=== PATIENT | male | born 1985 | race Caucasian/White ===

== ENCOUNTER 2020-12-28 06:07 | Inpatient (IN) | payer OTHER, SELFPAY ==
[2020-12-28] VITALS (17 sets, daily range): BP systolic 99–178; BP diastolic 43–91; PULSE 68–137; RESP 15–37; TEMP 36.2–37.2; O2SAT 89–100; BMI 27.6; BMI 27.5
--- NOTE | 2020-12-28 06:37 | ECG_ITS ---
Test Reason : DKA Blood Pressure : / mmHG Vent. Rate : 104 BPM Atrial Rate : 104 BPM P-R Int : 156 ms QRS Dur : 090 ms QT Int : 338 ms P-R-T Axes : 063 073 031 degrees QTc Int : 444 ms Sinus tachycardia Otherwise normal ECG No previous ECGs available Referred By: Deepak Azul Electronically Signed By:MARIA ESTHER VELAZQUEZ
[2020-12-28 06:38] LABS: Glucose, Whole Blood 440 mg/dL (60-115)
[2020-12-28] MEDS: 0.9 % Sodium Chloride 1,000 ML 999 ML IV ×2 (06:47)
[2020-12-28] MEDS: Morphine Sulfate 4 MG/ML CARTRIDGE IVPUSH ×2 (06:47→07:38)
[2020-12-28] MEDS: Insulin Regular, Human 100 UNIT/ML 3 ML VIAL IVPUSH (06:48)
[2020-12-28 07:05] LABS: Mean Corpuscular HGB Conc 32.5 g/dl (31.0-36.0)
[2020-12-28 07:07] LABS: Venous Blood Gas Refer to POC result
[2020-12-28 07:08] LABS: VBG Base Excess -29.5 mmol/L; VBG HCO3 3 mmol/L (22-26); VBG pCO2 16 mmHg; VBG pO2 81 mmHg
[2020-12-28 07:09] LABS: VBG pH 6.85 (7.32-7.43)
[2020-12-28 07:12] LABS: Hematocrit 46.1 % (42-52); Mean Corpuscular Hemoglobin 30.9 pg (27.0-33.0); Mean Corpuscular Volume 94.9 fL (80-98); Mean Platelet Volume 8.9 fL (9.4-12.4); Platelet Count 436 X10*3/uL (160-400); Red Blood Count 4.86 X10*6/uL (4.60-5.80); Red Cell Distribution Width 11.9 % (11.0-16.0)
--- NOTE | 2020-12-28 07:15 | ED_ITS ---
HPI - Abdominal Pain General Chief Complaint: Abdominal Pain Stated Complaint: Abdominal pain, N/V Time Seen by Provider: 12/28/20 06:27 Source: patient Mode of arrival: EMS Limitations: no limitations History of Present Illness HPI narrative: 35-year-old male who presents emergency department for evaluation of abdominal pain nausea and vomiting. Patient states that he got sick yesterday. He states that he has been vomiting and dry heaving. He has not been able to eat or drink. The patient does have type 2 diabetes. He states that since getting ill, he was not able to eat or drink therefore he stopped giv ing himself insulin. States he tried to drink fluids but continued to vomit. He tried to give himself spoons full left sugar but vomited shortly after swallowing the sugar. He states that this morning, developed severe abdominal cramping. The pain was located diffusely throughout his abdomen, was constant and was severe. The patient denied fever, chills, chest pain, shortness of breath, sore throat, changes bowel movements. Related Data Allergies Allergy/AdvReac Type Severity Reaction Status Date / Time Penicillins Allergy Hives Verified 12/28/20 06:23 Review of Systems Review of Systems Yes all other systems are reviewed and are negative Physical Exam Vital Signs: Vital Signs: Last Vital Signs Temp 97.6 F 12/28/20 06:15 Pulse 100 12/28/20 06:15 Resp 30 H 12/28/20 06:15 BP 153/89 H 12/28/20 06:15 Pulse Ox 100 12/28/20 06:15 Oxygen Flow Rate 2 12/28/20 06:15 Body Mass Index 27.6 Const: Other: Strong ketotic odor to his breath General: cooperative and in distress (Moderate to severe, Secondary to abdominal pain) O rientation/consciousness: oriented to person and oriented to place Limita tions: no limitations HENMT: Head: Yes normal to inspection, Yes normocephalic and Yes atraumatic Ears: external ears normal General nose exam: Normal external nose present Face and sinus: Yes normal facial exam Mouth: Normal oral and palatal mucosa present Throat: Yes posterior oropharynx normal Eyes: Periorbital: periorbital findings normal Eyelids: Yes eyelids normal Conjunctivae: conjunctivae normal Sclerae: sclerae normal Corneas: corneas normal Pupils: Equal, round and reactive pupils present Direct Ophthalmoscopy: normal light reflex Neck: Neck: Yes full ROM, Yes no lymphadenopathy, Yes no meningeal signs, Yes trachea midline and Yes supple Chest: Chest palpation & inspection: normal inspection of the chest and normal palpation of entire chest wall Resp: Effort & Inspection: able to speak in complete sentences and tachypneic Auscultation: clear to auscultation bilaterally Cardio: Rate: tachycardic Rhythm: regular rhythm Heart sounds: S1 normal heart sound present, S2 normal heart sound present and no murmurs GI: Inspection: Yes normal to inspection Palpation (GI): Soft to palpation, Tenderness to palpation present (GI) ([id number] diffuse tenderness), no guarding, not rigid and No hepatosplenomegaly present : General: Yes no CVA tenderness Back/Spine/Pelvis: Back: no CVA tenderness Cervical Spine: normal cervical lordosis Thoracic/Lumbar Spine: thoracic and lumbar spine normal to inspection Skin: Lesions: no lesions Rashes: no rashes Wounds: no wounds Neuro: General: oriented to person, oriented to place and no meningeal signs Cranial nerves: Yes CN's II-XII intact bilaterally and Yes Equal, round and reactive pupils present Cognition (Neuro): normal cognition Motor exam (neuro): 5/5 motor strength present throughout Extrem: General: Yes normal to inspection and Yes full ROM Psych: Appearance: well kempt Mental Status: mental status grossly normal Speech and movement: Normal speech and movement present Affect: normal affect Attitude: cooperative Thought process: Normal thought process present Thought content: Normal thought content present Course Course Course Narrative: 35-year-old male with type 1 diabetes mellitus who presents emergency department for evaluation of 2 days of nausea , vomiting and abdominal pain. On presentation the patient was in distress secondary to his abdominal pain. Patient had a very strong ketotic odor to his breath and was tachypneic. Vital signs revealed hypertension with a blood pressure of 153/89, tachycardia with a pulse of 100 and an elevated respiratory rate of 30. O2 saturation and temperature were normal. The patient's abdominal exam revealed diffuse abdominal tenderness. The patient's presentation was consistent with acute diab etic ketoacidosis which explains his tachypnea and his tachycardia. I ordered normal saline IV x2 L. He also received morphine 4 mg IV for his abdominal pain. I also ordered regular insulin 10 units IV. Laboratory evaluation to include CBC, CMP, lipase, acetone, venous blood gas, EKG and chest x-ray. 0736: The patient's venous blood gas revealed a pH of 6.85. Patient's WBC was elevated at 32,600, platelet count was 436,000. Findings, I did order blood cultures x2. The patient will be started on an insulin drip at 0.1 unit/kilogram/hour (7 unit). I also ordered q.1 hour point of care glucose monitoring. The patient did get some improvement of his abdominal pain with the initial dose of morphine required a 2nd dose of morphine 4 mg IV. 0806: Patient's electrolytes were abnormal with a low sodium of 124, elevated potassium 6.0, bicarb below detectable limits. Patient also has not elevated creatinine of 1.6. Lactic acid was elevated at 3.7. Moderate serum acetone. Are all consistent with the patient's diabetic ketoacidosis and severe acidosis given his pH of 6.85. I did discuss the patient's presentation with the covering mold loft worker, Dr. Bang and the patient will be admitted to the intensive care unit. He did recommend that the patient received 1 amp of sodium bicarb IV and this was ordered. MDM - Abdominal Pain Lab Data Result diagrams: 12/28/20 06:54 12/28/20 06:54 Labs: Lab Results 12/28/20 12/28/20 12/28/20 Range/Units 06:34 06:54 06:54 WBC 32.6 H* (4.8-10.8) X10*3/uL RBC 4.86 (4.60-5.80) X10*6/uL Hgb 15.0 (14.0-18.0) g/dl Hct 46.1 (42-52) % MCV 94.9 (80-98) fL MCH 30.9 (27.0-33.0) pg MCHC 32.5 (31.0-36.0) g/dl RDW 11.9 (11.0-16.0) % Plt Count 436 H (160-400) X10*3/uL MPV 8.9 L (9.4-12.4) fL Immature Gran % (Auto) Cancelled Neut % (Auto) Cancelled Lymph % (Auto) Cancelled [place] % (Auto) Cancelled Eos % (Auto) Cancelled Baso % (Auto) Cancelled Lymph # (Auto) Cancelled [place] # (Auto) Cancelled Eos # (Auto) Cancelled Baso # (Auto) Cancelled Abs Immat Gran (auto) Cancelled Absolute Neuts (auto) Cancelled Absolute Nucleated RBC 0.000 (0.0-0.012) X10*3/uL Nucleated RBC % (auto) 0.0 (0.0-0.2) /100WBC Neutrophils % (Manual) 75 H (45-73) % Band Neutrophils % 5 (3-5) % Lymphocytes % (Manual) 9 L (20-40) % Monocytes % (Manual) 8 (2-11) % Basophils % (Manual) 1 (0-1) % Metamyelocytes % 2 % Abs Neuts (Manual) 26.1 H (2.2-7.9) X10*3/uL Lymphocytes # (Manual) 2.9 (0.6-4.8) X10*3/uL Monocytes # (Manual) 2.6 H (0.0-1.2) X10*3/uL Basophils # (Manual) 0.3 (0.0-0.3) X10*3/uL Metamyelocytes # 0.7 X10*3/uL Platelet Estimate SLIGHTLY INCREASED (NORMAL) Large Platelets PRESENT Plt Morphology Comment NORMAL RBC Morphology NOTED Polychromasia 1+ (0-2) /OIF [place] Cells 2+ (3-5) /OIF VBG pH (7.32-7.43) VBG pCO2 mmHg VBG pO2 mmHg VBG HCO3 (22-26) mmol/L VBG O2 Saturation % VBG Base Excess mmol/L Sodium 124 L (135-145) mmol/L Potassium 6.0 H* (3.3-5.1) mmol/L Chloride 96 (96-108) mmol/L Carbon Dioxide < 5 L* (22-29) mmol/L Anion Gap 29 H (12-20) BUN 16 (9-16) mg/dL Creatinine 1.60 H (0.5-1.4) mg/dL Estim Creat Clear Calc 60.5 Estimated GFR 49 POC Glucose 440 H* (60-115) mg/dL Random Glucose 545 H* (60-115) mg/dL Lactic Acid (0.5-2.0) mmol/L Calcium 8.7 (8.4-10.2) mg/dL Total Bilirubin 0.3 (0.0-1.0) mg/dL AST 21 (5-37) U/L ALT 14 (0-40) U/L Alkaline Phosphatase 145 H (39-117) U/L Total Protein 8.1 H (6.5-8.0) g/dL Albumin 4.7 (3.5-5.0) g/dL Lipase 13 (8-78) U/L Beta-Hydroxybutyrate/Acetoacetate Urine Color Urine Appearance Urine pH (5.0-8.0) Ur Specific [place] (1.005-1.025) Urine Protein (NEG-TRACE) MG/DL Urine Glucose (UA) (NEG) MG/DL Urine Ketones (NEG) MG/DL Urine Blood (NEG) Urine Nitrite (NEG) Ur Leukocyte Esterase (NEG) Urine RBC (0) /HPF Urine WBC (0-4) /HPF Ur Squamous Epith Cells /LPF Amorphous Sediment /LPF Urine Bacteria /LPF Granular Casts /LPF Acetone, Qual Moderate H (Negative) 12/28/20 12/28/20 12/28/20 Range/Units 06:54 06:54 06:59 WBC (4.8-10.8) X10*3/uL RBC (4.60-5.80) X10*6/uL Hgb (14.0-18.0) g/dl Hct (42-52) % MCV (80-98) fL MCH (27.0-33.0) pg MCHC (31.0-36.0) g/dl RDW (11.0-16.0) % Plt Count (160-400) X10*3/uL MPV (9.4-12.4) fL Immature Gran % (Auto) Neut % (Auto) Lymph % (Auto) [place] % (Auto) Eos % (Auto) Baso % (Auto) Lymph # (Auto) [place] # (Auto) Eos # (Auto) Baso # (Auto) Abs Immat Gran (auto) Absolute Neuts (auto) Absolute Nucleated RBC (0.0-0.012) X10*3/uL Nucleated RBC % (auto) (0.0-0.2) /100WBC Neutrophils % (Manual) (45-73) % Band Neutrophils % (3-5) % Lymphocytes % (Manual) (20-40) % Monocytes % (Manual) (2-11) % Basophils % (Manual) (0-1) % Metamyelocytes % % Abs Neuts (Manual) (2.2-7.9) X10*3/uL Lymphocytes # (Manual) (0.6-4.8) X10*3/uL Monocytes # (Manual) (0.0-1.2) X10*3/uL Basophils # (Manual) (0.0-0.3) X10*3/uL Metamyelocytes # X10*3/uL Platelet Estimate (NORMAL) Large Platelets Plt Morphology Comment RBC Morphology Polychromasia /OIF [place] Cells /OIF VBG pH 6.85 L* (7.32-7.43) VBG pCO2 16 mmHg VBG pO2 81 mmHg VBG HCO3 3 L (22-26) mmol/L VBG O2 Saturation 91.0 % VBG Base Excess -29.5 mmol/L Sodium (135-145) mmol/L Potassium (3.3-5.1) mmol/L Chloride (96-108) mmol/L Carbon Dioxide (22-29) mmol/L Anion Gap (12-20) BUN (9-16) mg/dL Creatinine (0.5-1.4) mg/dL Estim Creat Clear Calc Estimated GFR POC Glucose (60-115) mg/dL Random Glucose (60-115) mg/dL Lactic Acid 3.7 H* (0.5-2.0) mmol/L Calcium (8.4-10.2) mg/dL Total Bilirubin (0.0-1.0) mg/dL AST (5-37) U/L ALT (0-40) U/L Alkaline Phosphatase (39-117) U/L Total Protein (6.5-8.0) g/dL Albumin (3.5-5.0) g/dL Lipase (8-78) U/L Beta-Hydroxybutyrate/Acetoacetate Cancelled Urine Color Urine Appearance Urine pH (5.0-8.0) Ur Specific [place] (1.005-1.025) Urine Protein (NEG-TRACE) MG/DL Urine Glucose (UA) (NEG) MG/DL Urine Ketones (NEG) MG/DL Urine Blood (NEG) Urine Nitrite (NEG) Ur Leukocyte Esterase (NEG) Urine RBC (0) /HPF Urine WBC (0-4) /HPF Ur Squamous Epith Cells /LPF Amorphous Sediment /LPF Urine Bacteria /LPF Granular Casts /LPF Acetone, Qual (Negative) 12/28/20 Range/Units 07:43 WBC (4.8-10.8) X10*3/uL RBC (4.60-5.80) X10*6/uL Hgb (14.0-18.0) g/dl Hct (42-52) % MCV (80-98) fL MCH (27.0-33.0) pg MCHC (31.0-36.0) g/dl RDW (11.0-16.0) % Plt Count (160-400) X10*3/uL MPV (9.4-12.4) fL Immature Gran % (Auto) Neut % (Auto) Lymph % (Auto) [place] % (Auto) Eos % (Auto) Baso % (Auto) Lymph # (Auto) [place] # (Auto) Eos # (Auto) Baso # (Auto) Abs Immat Gran (auto) Absolute Neuts (auto) Absolute Nucleated RBC (0.0-0.012) X10*3/uL Nucleated RBC % (auto) (0.0-0.2) /100WBC Neutrophils % (Manual) (45-73) % Band Neutrophils % (3-5) % Lymphocytes % (Manual) (20-40) % Monocytes % (Manual) (2-11) % Basophils % (Manual) (0-1) % Metamyelocytes % % Abs Neuts (Manual) (2.2-7.9) X10*3/uL Lymphocytes # (Manual) (0.6-4.8) X10*3/uL Monocytes # (Manual) (0.0-1.2) X10*3/uL Basophils # (Manual) (0.0-0.3) X10*3/uL Metamyelocytes # X10*3/uL Platelet Estimate (NORMAL) Large Platelets Plt Morphology Comment RBC Morphology Polychromasia /OIF [place] Cells /OIF VBG pH (7.32-7.43) VBG pCO2 mmHg VBG pO2 mmHg VBG HCO3 (22-26) mmol/L VBG O2 Saturation % VBG Base Excess mmol/L Sodium (135-145) mmol/L Potassium (3.3-5.1) mmol/L Chloride (96-108) mmol/L Carbon Dioxide (22-29) mmol/L Anion Gap (12-20) BUN (9-16) mg/dL Creatinine (0.5-1.4) mg/dL Estim Creat Clear Calc Estimated GFR POC Glucose (60-115) mg/dL Random Glucose (60-115) mg/dL Lactic Acid (0.5-2.0) mmol/L Calcium (8.4-10.2) mg/dL Total Bilirubin (0.0-1.0) mg/dL AST (5-37) U/L ALT (0-40) U/L Alkaline Phosphatase (39-117) U/L Total Protein (6.5-8.0) g/dL Albumin (3.5-5.0) g/dL Lipase (8-78) U/L Beta-Hydroxybutyrate/Acetoacetate Urine Color STRAW Urine Appearance CLEAR Urine pH 5.5 (5.0-8.0) Ur Specific [place] >= 1.030 H (1.005-1.025) Urine Protein 2+ H (NEG-TRACE) MG/DL Urine Glucose (UA) 500 H (NEG) MG/DL Urine Ketones >=80 (NEG) MG/DL Urine Blood 2+ H (NEG) Urine Nitrite NEG (NEG) Ur Leukocyte Esterase NEG (NEG) Urine RBC 5-9 H (0) /HPF Urine WBC 0 (0-4) /HPF Ur Squamous Epith Cells NONE /LPF Amorphous Sediment 1+ /LPF Urine Bacteria NONE /LPF Granular Casts 0-2 /LPF Acetone, Qual (Negative) ECG Data Attestation: I personally reviewed and interpreted this ECG as follows: Interpretation: 0643: Sinus tachycardia with a rate of 104, normal [place], QRS and QTC intervals, no ST segment elevation, no ST segment depression, no T- wave abnormalities. Except for the sinus tachycardia, this is a normal EKG. Critical Care Time Critical Care Time Critical Care Time: Yes Total Critical Care Time: 120 Attestation: Critical Care: The patient was critically ill with a high probab ility of imminent or life threatening deterioration. I spent greater than 30 minutes of discontinuous time evaluating the patient,delivering critical care at the bedside, discussing and evaluating pertinent data with consultants. Critical care time does not include time spent performing separately billable procedures or teaching. Total time spent performing critical care was 120 minutes. Discharge Plan Discharge Clinical Impression: Diabetic keto-acidosis Qualifiers: Diabetes mellitus type: type 1 Diabetes mellitus complication detail: without coma Qualified Code(s): E10.10 - Type 1 diabetes mellitus with ketoacidosis without coma Abdominal pain Qualifiers: Abdominal location: generalized Qualified Code(s): R10.84 - Generalized abdominal pain Patient Disposition: Admitted As Inpatient [facility] Past Medical History [facility] Narrative: Social history: The patient denies tobacco use, he occasionally drinks alcohol and he states they did drink alcohol 2 days prior. He occasionally smokes marijuana. Medical History Depression Diabetes type I Social History Social History Advance Directives: No Advance Directives Information Provided: No
[2020-12-28 07:16] LABS: White Blood Count 32.6 X10*3/uL (4.8-10.8)
[2020-12-28 07:30] LABS: Acetone, serum QL Moderate (Negative)
[2020-12-28 07:35] LABS: Band Neutrophils Percent 5 % (3-5); Basophils Abs Manual 0.3 X10*3/uL (0.0-0.3); Basophils Percent Manual 1 % (0-1); Burr Cells 2+ (3-5) /OIF; Large Platelet PRESENT; Lymphocytes Absolute Manual 2.9 X10*3/uL (0.6-4.8); Lymphocytes Percent Manual 9 % (20-40); Metamyelocytes Absolute 0.7 X10*3/uL; Metamyelocytes Percent 2 %; Monocytes Absolute Manual 2.6 X10*3/uL (0.0-1.2); Monocytes Percent Manual 8 % (2-11); Neutrophils Absolute Manual 26.1 X10*3/uL (2.2-7.9); Neutrophils Percent Manual 75 % (45-73); Platelet Estimate SLIGHTLY INCREASED (NORMAL); Platelet Morphology Comment NORMAL; RBC Morphology NOTED
[2020-12-28 07:36] LABS: Polychromasia 1+ (0-2) /OIF
[2020-12-28 07:42] LABS: Alanine Aminotransferase 14 U/L (0-40); Albumin Level 4.7 g/dL (3.5-5.0); Alkaline Phosphatase 145 U/L (39-117); Anion Gap 29 (12-20); Aspartate Amino Transferase 21 U/L (5-37); Bilirubin Total 0.3 mg/dL (0.0-1.0); Blood Urea Nitrogen 16 mg/dL (9-16); Calcium 8.7 mg/dL (8.4-10.2); Carbon Dioxide < 5 mmol/L (22-29); Chloride 96 mmol/L (96-108); Creatinine Clr Calc Pharmacy 60.5; Estimated Glomerular Filt Rate 49; Glucose Random 545 mg/dL (60-115); Lipase 13 U/L (8-78); Sodium 124 mmol/L (135-145); Total Protein 8.1 g/dL (6.5-8.0)
[2020-12-28 07:43] LABS: Lactic Acid 3.7 mmol/L (0.5-2.0)
[2020-12-28] MEDS: Insulin Regular/NS 100 UNIT/100 ML PLAST..BAG 7 UNIT IVCONT ×2 (07:55→09:18)
[2020-12-28 07:56] LABS: Appearance Urine CLEAR; Color Urine STRAW; Glucose Urine UA 500 MG/DL (NEG); Leukocyte Esterase Urine NEG (NEG); Nitrite Urine NEG (NEG); PH 5.5 (5.0-8.0); Specific Gravity - Urine >= 1.030 (1.005-1.025); Urine Blood 2+ (NEG); Urine Ketones >=80 MG/DL (NEG); Urine Protein 2+ MG/DL (NEG-TRACE)
[2020-12-28 08:05] LABS: Amorphous Sediment Urine 1+ /LPF; Granular Casts Urine 0-2 /LPF; WBC Urine 0 /HPF (0-4)
[2020-12-28] MEDS: Sodium Bicarbonate 8.4% 50 MEQ/50 ML VIAL IVPUSH (08:09)
[2020-12-28] MEDS: Heparin Sodium,Porcine 5,000 UNIT/ML VIAL 5000 UNIT SUBCUT ×2 (08:10→18:44)
[2020-12-28] MEDS: Lactated Ringers 1,000 ML 200 ML IVCONT (08:27)
[2020-12-28 08:41] LABS: COVID-19 Test Negative (Negative); IDNOW Serial# 9DD0AD1C
[2020-12-28 09:00] LABS: Glucose, Whole Blood 288 mg/dL (60-115)
[2020-12-28 09:00] LABS: Reflex Lactate? Lactic Acid Added
[2020-12-28 09:37] LABS: ~Lactic Acid-LAB USE ONLY 1.7 mmol/L (0.5-2.0)
[2020-12-28 09:53] LABS: Glucose, Whole Blood 284 mg/dL (60-115)
--- NOTE | 2020-12-28 10:50 | P.HPCC_ITS ---
History of Present Illness Date of Service: 12/28/20 Chief Complaint: Abdominal pain 35-year-old gentleman with underlying history of diabetes mellitus admitted on 12/28/2020 with 3 day history of slowly worsening abdominal pain associated with nausea, vomiting, and polyuria. On ER evaluation patient was noted to be in diabetic ketoacidosis, he has been started on IV fluid resuscitation and insulin drip and admitted to intensive care unit. He denies any recent infections or physiologic stressors. Review of Systems Constitutional: Constitutional: Denies daytime sleepiness, Denies excessive sweating, Denies fatigue, Denies fever(s), Denies lethargy, Reports malaise, Denies night sweats, Denies snoring and Denies weight loss Eyes: Eyes: Denies blurry vision and Denies itchy eyes ENT: Denies nasal congestion, Denies post nasal drip, Denies sinus pain, Denies sinus pressure and Denies other ( Thrush) Cardiovascular: Cardiovascular: Denies chest pain, Denies pedal edema, Denies dyspnea, Denies orthopnea and Denies paroxysmal nocturnal dyspnea Respiratory: Respiratory: Denies cough, Denies hemoptysis, Denies excessive phlegm production, Denies dyspnea, Denies snoring and Denies wheezing Gastrointestinal: Gastrointestinal: Reports abdominal pain, Denies heartburn, Reports nausea and Reports vomiting Musculoskeletal: Musculoskeletal: Denies myalgias, Denies arthralgias and Denies joint swelling Integumentary/Breasts: Skin/Breast: Denies rash Neurologic: Denies memory loss and Denies seizure-like activity Psychiatric: Psychiatric: Denies abnormal sleep pattern, Denies anxiety and Denies memory loss Endocrine: Endocrine: Denies excessive sweating, Denies fatigue, Denies heat intolerance and Reports polyuria Hematologic/Lymphatic: Hematologic/Lymphatic: Denies easy bruising Allergic/Immunologic: Allergic/Immunologic: Denies itchy eyes, Denies seasonal rhinorrhea and Denies wheezing PMFSH Past Medical History Medical History Depression Diabetes type I Social History Social History Household Members: Spouse Housing: House Do you presently have visiting nurse or other home services: No Patient Tobacco Use Status: Former Tobacco user Tobacco use type: Cigarette Years Smoked: 2 Smoked in Last 30 Days: No Second Hand Smoke Exposure: Yes (MINIMAL) Use of substances other than those prescribed or required for medical reasons: Yes Substance Use Type: Marijuana Substance Use Type Other:: VAPING MARIJUANA Substance Use Frequency: Daily Last Used Substance: Days (ago) Have you been hit, kicked, punched, or otherwise hurt by someone within the past year? If so, by whom?: No Do you feel safe in your current relationship?: No Is there a partner from a previous relationship who is making you feel unsafe now?: No Are you made to feel afraid or neglected: No Spiritual Healthcare Practices: NO Sabianist Healthcare Practices: CULTURALLY AMISH Cultural Healthcare Practices: NO Advance Directives: No Advance Directives Information Provided: No (PLAN TO GET HCP FORM) Advance Directives on File: No Do you have thoughts of harming others: None Do you have a plan to hurt others: No Plan Recently lost weight without trying: Yes How much weight loss: 14-23 pounds Eating poorly because of decreased appetite: No Nutrition screen score: 4 Nutrition Risks: Diabetes new onset/Uncontrolled Poor oral hygiene: No Meds Allergies Allergy/AdvReac Type Severity Reaction Status Date / Time Penicillins Allergy Hives Verified 12/28/20 06:23 Active Medications: Current Medications Generic Name Dose Route Start Last Admin Trade Name Freq PRN Reason Stop Dose Admin Heparin Sodium (Porcine) 5,000 unit 12/28/20 08:00 12/28/20 08:10 Heparin Sodium,Porcine 5,000 Unit/Ml Vial SUBCUT 5,000 unit Q8H CHERYL Administration Lactated Ringer's 1,000 mls @ 200 mls/hr 12/28/20 08:00 12/28/20 08:27 Lr IVCONT 200 mls/hr .Q5H CHERYL Administration Insulin Human Regular 100 unit in 100 mls @ 0 mls/hr 12/28/20 08:00 12/28/20 09:59 Myxredlin IVCONT 10 unit/hr .Q0M CHERYL 10 mls/hr Titration Protocol Per Protocol Ondansetron HCl 4 mg 12/28/20 07:54 Ondansetron Hcl 4 Mg/2 Ml Vial IVPUSH Q8H PRN Nausea Home Medications Medication Instructions Recorded Confirmed Last Taken Type insulin glargine [Lantus Solostar 40 unit SUBCUT DAILY 12/28/20 12/28/20 Unknown History U-100 Insulin] insulin lispro [Humalog KwikPen See Protocol SUBCUT TIDWMEAL 12/28/20 12/28/20 Unknown History Insulin] sertraline 1.5 tab PO DAILY 12/28/20 12/28/20 Unknown History sertraline 2 tab PO DAILY 12/28/20 12/28/20 Unknown History Physical Exam Vital Signs: Vital Signs: Last Vital Signs Temp 98.2 F 12/28/20 10:00 Pulse 126 H 12/28/20 10:00 Resp 25 H 12/28/20 10:00 BP 156/88 H 12/28/20 10:00 Pulse Ox 100 12/28/20 10:00 Oxygen Flow Rate 2 12/28/20 06:15 Body Mass Index 27.5 Const: General: no acute distress, alert and awake Eyes: Sclerae: sclerae normal EOM: EOMs intact bilaterally Neck: Neck: Yes no lymphadenopathy, Yes trachea midline and Yes supple Resp: Effort & Inspection: normal respiratory effort and no respiratory distress Auscultation: clear to auscultation bilaterally Cardio: Rate: regular rate Rhythm: regular rhythm Heart sounds: no gallops, no murmurs and no rubs GI: Palpation (GI): Soft to palpation and Other GI palpation findings present ( Nontender) Auscultation: normal bowel sounds Extrem: General: Yes no pedal edema, No clubbing and No cyanosis Results Labs CBC and Chem 7: 12/28/20 06:54 12/28/20 06:54 Labs: Laboratory Results - last 24 hr 12/28/20 12/28/20 12/28/20 06:34 06:54 06:54 MCV 94.9 MCH 30.9 MCHC 32.5 RDW 11.9 Plt Count 436 H MPV 8.9 L Immature Gran % (Auto) Cancelled Neut % (Auto) Cancelled Lymph % (Auto) Cancelled Lincoln % (Auto) Cancelled Eos % (Auto) Cancelled Baso % (Auto) Cancelled Lymph # (Auto) Cancelled Lincoln # (Auto) Cancelled Eos # (Auto) Cancelled Baso # (Auto) Cancelled Abs Immat Gran (auto) Cancelled Absolute Neuts (auto) Cancelled Absolute Nucleated RBC 0.000 Nucleated RBC % (auto) 0.0 Neutrophils % (Manual) 75 H Band Neutrophils % 5 Lymphocytes % (Manual) 9 L Monocytes % (Manual) 8 Basophils % (Manual) 1 Metamyelocytes % 2 Abs Neuts (Manual) 26.1 H Lymphocytes # (Manual) 2.9 Monocytes # (Manual) 2.6 H Basophils # (Manual) 0.3 Metamyelocytes # 0.7 Platelet Estimate SLIGHTLY INCREASED Large Platelets PRESENT Plt Morphology Comment NORMAL RBC Morphology NOTED Polychromasia 1+ (0-2) Abraham Cells 2+ (3-5) VBG pH VBG pCO2 VBG pO2 VBG HCO3 VBG O2 Saturation VBG Base Excess Anion Gap 29 H Estim Creat Clear Calc 60.5 Estimated GFR 49 POC Glucose 440 H* Random Glucose 545 H* Lactic Acid Lactic Acid Fup @ 2Hr Calcium 8.7 Total Bilirubin 0.3 AST 21 ALT 14 Alkaline Phosphatase 145 H Total Protein 8.1 H Albumin 4.7 Lipase 13 Beta-Hydroxybutyrate/Acetoacetate Urine Color Urine Appearance Urine pH Ur Specific [place] Urine Protein Urine Glucose (UA) Urine Ketones Urine Blood Urine Nitrite Ur Leukocyte Esterase Urine RBC Urine WBC Ur Squamous Epith Cells Amorphous Sediment Urine Bacteria Granular Casts Acetone, Qual Moderate H COVID-19 ([facility]) COVID-19 Clin Com 12/28/20 12/28/20 12/28/20 06:54 06:54 06:59 MCV MCH MCHC RDW Plt Count MPV Immature Gran % (Auto) Neut % (Auto) Lymph % (Auto) Lincoln % (Auto) Eos % (Auto) Baso % (Auto) Lymph # (Auto) Lincoln # (Auto) Eos # (Auto) Baso # (Auto) Abs Immat Gran (auto) Absolute Neuts (auto) Absolute Nucleated RBC Nucleated RBC % (auto) Neutrophils % (Manual) Band Neutrophils % Lymphocytes % (Manual) Monocytes % (Manual) Basophils % (Manual) Metamyelocytes % Abs Neuts (Manual) Lymphocytes # (Manual) Monocytes # (Manual) Basophils # (Manual) Metamyelocytes # Platelet Estimate Large Platelets Plt Morphology Comment RBC Morphology Polychromasia Abraham Cells VBG pH 6.85 L* VBG pCO2 16 VBG pO2 81 VBG HCO3 3 L VBG O2 Saturation 91.0 VBG Base Excess -29.5 Anion Gap Estim Creat Clear Calc Estimated GFR POC Glucose Random Glucose Lactic Acid 3.7 H* Lactic Acid Fup @ 2Hr Calcium Total Bilirubin AST ALT Alkaline Phosphatase Total Protein Albumin Lipase Beta-Hydroxybutyrate/Acetoacetate Cancelled Urine Color Urine Appearance Urine pH Ur Specific [place] Urine Protein Urine Glucose (UA) Urine Ketones Urine Blood Urine Nitrite Ur Leukocyte Esterase Urine RBC Urine WBC Ur Squamous Epith Cells Amorphous Sediment Urine Bacteria Granular Casts Acetone, Qual COVID-19 ([facility]) COVID-19 [employer] 12/28/20 12/28/20 12/28/20 07:43 08:21 08:57 MCV MCH MCHC RDW Plt Count MPV Immature Gran % (Auto) Neut % (Auto) Lymph % (Auto) Lincoln % (Auto) Eos % (Auto) Baso % (Auto) Lymph # (Auto) Lincoln # (Auto) Eos # (Auto) Baso # (Auto) Abs Immat Gran (auto) Absolute Neuts (auto) Absolute Nucleated RBC Nucleated RBC % (auto) Neutrophils % (Manual) Band Neutrophils % Lymphocytes % (Manual) Monocytes % (Manual) Basophils % (Manual) Metamyelocytes % Abs Neuts (Manual) Lymphocytes # (Manual) Monocytes # (Manual) Basophils # (Manual) Metamyelocytes # Platelet Estimate Large Platelets Plt Morphology Comment RBC Morphology Polychromasia Abraham Cells VBG pH VBG pCO2 VBG pO2 VBG HCO3 VBG O2 Saturation VBG Base Excess Anion Gap Estim Creat Clear Calc Estimated GFR POC Glucose 288 H Random Glucose Lactic Acid Lactic Acid Fup @ 2Hr Calcium Total Bilirubin AST ALT Alkaline Phosphatase Total Protein Albumin Lipase Beta-Hydroxybutyrate/Acetoacetate Urine Color STRAW Urine Appearance CLEAR Urine pH 5.5 Ur Specific [place] >= 1.030 H Urine Protein 2+ H Urine Glucose (UA) 500 H Urine Ketones >=80 Urine Blood 2+ H Urine Nitrite NEG Ur Leukocyte Esterase NEG Urine RBC 5-9 H Urine WBC 0 Ur Squamous Epith Cells NONE Amorphous Sediment 1+ Urine Bacteria NONE Granular Casts 0-2 Acetone, Qual COVID-19 ([facility]) Negative COVID-19 [employer] Com See Note 12/28/20 12/28/20 09:11 09:46 MCV MCH MCHC RDW Plt Count MPV Immature Gran % (Auto) Neut % (Auto) Lymph % (Auto) Lincoln % (Auto) Eos % (Auto) Baso % (Auto) Lymph # (Auto) [place] # (Auto) Eos # (Auto) Baso # (Auto) Abs Immat Gran (auto) Absolute Neuts (auto) Absolute Nucleated RBC Nucleated RBC % (auto) Neutrophils % (Manual) Band Neutrophils % Lymphocytes % (Manual) Monocytes % (Manual) Basophils % (Manual) Metamyelocytes % Abs Neuts (Manual) Lymphocytes # (Manual) Monocytes # (Manual) Basophils # (Manual) Metamyelocytes # Platelet Estimate Large Platelets Plt Morphology Comment RBC Morphology Polychromasia Abraham Cells VBG pH VBG pCO2 VBG pO2 VBG HCO3 VBG O2 Saturation VBG Base Excess Anion Gap Estim Creat Clear Calc Estimated GFR POC Glucose 284 H Random Glucose Lactic Acid Lactic Acid Fup @ 2Hr 1.7 Calcium Total Bilirubin AST ALT Alkaline Phosphatase Total Protein Albumin Lipase Beta-Hydroxybutyrate/Acetoacetate Urine Color Urine Appearance Urine pH Ur Specific [place] Urine Protein Urine Glucose (UA) Urine Ketones Urine Blood Urine Nitrite Ur Leukocyte Esterase Urine RBC Urine WBC Ur Squamous Epith Cells Amorphous Sediment Urine Bacteria Granular Casts Acetone, Qual COVID-19 ([facility]) COVID-19 Clin Com Assessment and Plan (1) Diabetic keto-acidosis: Qualifiers: Diabetes mellitus complication detail: without coma Diabetes mellitus type: type 1 Qualified Code(s): E10.10 - Type 1 diabetes mellitus with ketoacidosis without coma Status: Acute Assessment: 35-year-old gentleman with underlying diabetes mellitus admitted with diabetic ketoacidosis requiring insulin drip, further complicated by acute renal failure and acute hyperkalemia. Plan: Neuro: No acute issues. Cardiac: No acute issues. Pulmonary: No acute issues. Renal: Acute renal failure, likely secondary to underlying diabetic ketoacidosis, non oliguric. Continue with IV fluid resuscitation. Continue to monitor renal indices and urine output. Hypernatremia, likely secondary to acute renal failure and diabetes ketoacidosis, no peaked T-waves. Continue to monitor electrolytes. Endo: Diabetic ketoacidosis, continue with insulin drip protocol. GI: No acute issues. ID: No acute issues Heme/Onc: No acute issues. Psych: No acute issues. Miscellaneous: No acute issues. Prophylaxis: Heparin Diet: Nothing by mouth Critical care time spent: 45 minutes (2) Abdominal pain: Qualifiers: Abdominal location: generalized Qualified Code(s): R10.84 - Generalized abdominal pain Status: Acute (3) Acute renal failure: Status: Acute (4) Acute hyperkalemia: Status: Acute Critical Care Time 45 minutes
[2020-12-28] MEDS: Metoprolol Tartrate 5 MG/5 ML VIAL IVPUSH (11:47)
[2020-12-28 11:57] LABS: VBG HCO3 3 mmol/L (22-26); VBG pCO2 10 mmHg; VBG pH 7.01 (7.32-7.43); VBG pO2 60 mmHg
[2020-12-28 12:06] LABS: Glucose, Whole Blood 168 mg/dL (60-115)
[2020-12-28 12:06] LABS: Glucose, Whole Blood 94 mg/dL (60-115)
[2020-12-28 12:18] LABS: Venous Blood Gas Refer to POC result
[2020-12-28] MEDS: Dextrose 5 % and Lactated Ring 1,000 ML 200 ML IVCONT ×3 (12:18→23:43)
[2020-12-28 12:32] LABS: Phosphorus 2.6 mg/dL (2.7-4.5)
[2020-12-28 12:38] LABS: Anion Gap 25 (12-20); Blood Urea Nitrogen 14 mg/dL (9-16); Calcium 8.8 mg/dL (8.4-10.2); Carbon Dioxide < 5 mmol/L (22-29); Chloride 109 mmol/L (96-108); Creatinine Clr Calc Pharmacy 72.6; Estimated Glomerular Filt Rate > 60; Glucose Random 112 mg/dL (60-115); Potassium 4.9 mmol/L (3.3-5.1); Sodium 134 mmol/L (135-145)
[2020-12-28 12:51] LABS: Glucose, Whole Blood 89 mg/dL (60-115)
[2020-12-28 13:56] LABS: Glucose, Whole Blood 92 mg/dL (60-115)
[2020-12-28 14:11] LABS: Amphetamine Screen Urine Not Detected (Not Detect); Barbiturates, Urine Not Detected (Not Detect); Benzodiazepines Screen Urine Not Detected (Not Detect); Cocaine Screen Urine Not Detected (Not Detect); Opiate Screen Urine POSITIVE (Not Detect); Phencyclidine Screen Urine Not Detected (Not Detect)
[2020-12-28 14:20] LABS: Cannabinoid Screen Urine POSITIVE (Not Detect)
[2020-12-28 14:27] LABS: Glucose, Whole Blood 122 mg/dL (60-115)
[2020-12-28 15:39] LABS: Glucose, Whole Blood 184 mg/dL (60-115)
[2020-12-28 17:15] LABS: Glucose, Whole Blood 200 mg/dL (60-115)
[2020-12-28 18:06] LABS: Glucose, Whole Blood 218 mg/dL (60-115)
[2020-12-28 18:40] LABS: VBG Base Excess -22.5 mmol/L; VBG HCO3 5 mmol/L (22-26); VBG pCO2 16 mmHg; VBG pH 7.08 (7.32-7.43); VBG pO2 53 mmHg
[2020-12-28 19:04] LABS: Blood Urea Nitrogen 11 mg/dL (9-16); Calcium 8.4 mg/dL (8.4-10.2); Creatinine Clr Calc Pharmacy 65.2; Estimated Glomerular Filt Rate 54
[2020-12-28 19:14] LABS: Glucose, Whole Blood 258 mg/dL (60-115)
[2020-12-28 19:16] LABS: Anion Gap 22 (12-20); Carbon Dioxide 6 mmol/L (22-29); Chloride 108 mmol/L (96-108); Glucose Random 246 mg/dL (60-115); Potassium 5.2 mmol/L (3.3-5.1); Sodium 131 mmol/L (135-145)
--- NOTE | 2020-12-28 19:48 | PC.NURSE ---
ASSUMED CARE AT 0900; PATIENT IS ALERT TO DROWSY AND ORIENTED; ON INSULIN GTT, TITRATED PER DKA PROTOCOL WITH SOME ADJUSTMENTS PER MD. PATIENT IS AFEBRILE DESPITE LEUKOCYTOSIS. PATIENT WAS INITIALLY TACHYCARDIC AND TACHYPNEIC AND ALSO SHORT OF BREATH, WAS LEFT ON 2 LPM FOR COMFORT, SPO2 98-100%, NO COUGHING, NO DYSPNEA, CLEAR LUNG SOUNDS. PATIENT REPORTED LIGHTHEADEDNESS AND BECAME MORE TACHYCARDIC: SINUS TACHYCARDIA IN 140'S-150'S WITH STANDING TO URINATE; 100-120 AT REST. PATIENT RECEIVED 5 MG IV LOPRESSOR FOR TACHYCARDIA IN 150'S X1 THIS MORNING WITH GOOD EFFECT. PATIENT DENIES CHEST DISCOMFORT. TACHYCARDIA IMPROVED OVER DAY, TACHYPNEA IMPROVED WHILE AT REST OVER COURSE OF DAY. PATIENT NOW DENIES NAUSEA, ABDOMINAL PAIN WAS REPORTED TO BE 1/10 AND DECLINED PAIN MEDICATION. PATIENT DOES ENDORSE OCCASIONAL DRINKING (4 TIMES A MONTH, ONE TO TWO DRINKS), BUT WAS TREMULOUS THIS AFTERNOON, APPEARED TO BE SHIVERING, DENIED BEING COLD. PATIENT DOES ENDORSE VAPING MARIJUANA WITH REGULARITY, LAST TIME WAS TWO DAYS AGO. NO MORE STOOLS OR DIARRHEA THIS SHIFT. PATIENT BLOOD GASSES CHECKED AT 12:00 AND 17:00 AND WERE STILL ACIDOTIC WITH LESSENING SEVERITY, AND THESE WERE REPORTED TO MD. PATIENT IVF WAS CHANGED TO D5LR ABOUT 12:00. CRITICAL BICARB OF <5 WAS REPORTED TO MD.
[2020-12-28 20:29] LABS: Glucose, Whole Blood 261 mg/dL (60-115)
[2020-12-28 21:01] LABS: Glucose, Whole Blood 234 mg/dL (60-115)
[2020-12-28 22:00] LABS: Glucose, Whole Blood 210 mg/dL (60-115)
[2020-12-28 22:51] LABS: Venous Blood Gas Refer to POC result
[2020-12-28 23:16] LABS: Glucose, Whole Blood 189 mg/dL (60-115)
[2020-12-28] MEDS: Insulin Regular/NS 100 UNIT/100 ML PLAST..BAG 12 UNIT IVCONT (23:45)
[2020-12-29] VITALS (19 sets, daily range): BP systolic 106–147; BP diastolic 52–89; PULSE 74–100; RESP 14–25; TEMP 36.6–37.2; O2SAT 97–100; BMI 26.6
[2020-12-29 00:06] LABS: Glucose, Whole Blood 161 mg/dL (60-115)
[2020-12-29] MEDS: ondansetron HCL 4 MG/2 ML VIAL IVPUSH ×2 (00:50→09:48)
[2020-12-29] MEDS: Heparin Sodium,Porcine 5,000 UNIT/ML VIAL 5000 UNIT SUBCUT ×3 (00:51→17:33)
[2020-12-29 01:06] LABS: Anion Gap 19 (12-20); Blood Urea Nitrogen 9 mg/dL (9-16); Calcium 8.8 mg/dL (8.4-10.2); Carbon Dioxide 7 mmol/L (22-29); Chloride 111 mmol/L (96-108); Creatinine Clr Calc Pharmacy 74.3; Estimated Glomerular Filt Rate > 60; Glucose Random 172 mg/dL (60-115); Potassium 4.2 mmol/L (3.3-5.1); Sodium 133 mmol/L (135-145)
[2020-12-29 01:59] LABS: Glucose, Whole Blood 149 mg/dL (60-115)
[2020-12-29 02:09] LABS: Glucose, Whole Blood 164 mg/dL (60-115)
[2020-12-29 02:54] LABS: Glucose, Whole Blood 128 mg/dL (60-115)
[2020-12-29 04:13] LABS: Glucose, Whole Blood 127 mg/dL (60-115)
[2020-12-29 05:22] LABS: VBG Base Excess -11.9 mmol/L; VBG HCO3 12 mmol/L (22-26); VBG pCO2 25 mmHg; VBG pH 7.29 (7.32-7.43); VBG pO2 59 mmHg
[2020-12-29 05:25] LABS: Venous Blood Gas Refer to POC result
[2020-12-29 05:34] LABS: MANUAL DIFF FLAG NO
[2020-12-29 05:38] LABS: Basophils Percent Auto 0.1 % (0-2); Hematocrit 40.2 % (42-52); Hemoglobin 13.8 g/dl (14.0-18.0); Imm Gran Abs Auto 0.08 X10*3/uL (0.00-0.03); Imm Gran Pct Auto 0.6 % (0.0-0.4); Lymphocytes Absolute Auto 0.8 X10*3/uL (1.2-4.9); Lymphocytes Percent Auto 6.3 % (20-40); Mean Corpuscular HGB Conc 34.3 g/dl (31.0-36.0); Mean Corpuscular Hemoglobin 30.5 pg (27.0-33.0); Mean Corpuscular Volume 88.9 fL (80-98); Mean Platelet Volume 8.4 fL (9.4-12.4); Monocytes Absolute Auto 0.9 X10*3/uL (0.1-1.2); Monocytes Percent Auto 7.1 % (2-11); Neutrophils Absolute Auto 11.1 X10*3/uL (2.0-8.3); Neutrophils Percent Auto 85.9 % (45-73); Red Blood Count 4.52 X10*6/uL (4.60-5.80); Red Cell Distribution Width 11.9 % (11.0-16.0)
--- NOTE | 2020-12-29 05:55 | PC.NURSE ---
Patient oriented, lethargic, easily arousable. ST up to 140's with minimal exertion. Insulin gtt titrated per protocol. Nausea with emesis x3. PRN zofran with some effect. Making adequate urine.
[2020-12-29 06:00] LABS: Glucose, Whole Blood 144 mg/dL (60-115)
[2020-12-29] MEDS: Dextrose 5 % and Lactated Ring 1,000 ML 200 ML IVCONT ×2 (06:02→10:02)
[2020-12-29 06:05] LABS: Alanine Aminotransferase 11 U/L (0-40); Albumin Level 4.1 g/dL (3.5-5.0); Alkaline Phosphatase 107 U/L (39-117); Anion Gap 16 (12-20); Aspartate Amino Transferase 16 U/L (5-37); Bilirubin Total 0.3 mg/dL (0.0-1.0); Blood Urea Nitrogen 8 mg/dL (9-16); Carbon Dioxide 13 mmol/L (22-29); Chloride 110 mmol/L (96-108); Creatinine Clr Calc Pharmacy 81.8; Estimated Glomerular Filt Rate > 60; Glucose Random 152 mg/dL (60-115); Magnesium 1.9 mg/dL (1.6-2.6); Phosphorus 1.4 mg/dL (2.7-4.5); Potassium 3.7 mmol/L (3.3-5.1); Sodium 135 mmol/L (135-145); Total Protein 6.6 g/dL (6.5-8.0)
[2020-12-29 06:50] LABS: Platelet Count 260 X10*3/uL (160-400)
[2020-12-29 07:02] LABS: Glucose, Whole Blood 144 mg/dL (60-115)
[2020-12-29 08:02] LABS: Glucose, Whole Blood 137 mg/dL (60-115)
[2020-12-29] MEDS: Potassium Phosphate 30 MMOL in 0.9 % Sodium Chloride 500 ML 85 MMOL IV (08:20)
[2020-12-29 08:58] LABS: Glucose, Whole Blood 129 mg/dL (60-115)
[2020-12-29 10:16] LABS: Glucose, Whole Blood 117 mg/dL (60-115)
--- NOTE | 2020-12-29 10:25 | MHC.CM.PN ---
Met with pt and spouse to discuss d/c planning: Pt states he is independent with all care needs: drives, works and has no services or barriers to care. He follows with endocrinology for DM management and is up to date with all PCP visits. Spouse in room: states she will transport pt home. No additional services are anticipated.
[2020-12-29 11:03] LABS: Glucose, Whole Blood 138 mg/dL (60-115)
[2020-12-29 12:18] LABS: Anion Gap 13 (12-20); Blood Urea Nitrogen 5 mg/dL (9-16); Carbon Dioxide 18 mmol/L (22-29); Chloride 109 mmol/L (96-108); Estimated Glomerular Filt Rate > 60; Glucose Random 161 mg/dL (60-115); Potassium 3.4 mmol/L (3.3-5.1); Sodium 137 mmol/L (135-145)
[2020-12-29 12:22] LABS: Glucose, Whole Blood 164 mg/dL (60-115)
[2020-12-29] MEDS: Insulin Glargine,Hum.rec.anlog 100 UNIT/ML 10 ML VIAL 40 UNIT SUBCUT (12:43)
[2020-12-29 12:55] LABS: Glucose, Whole Blood 148 mg/dL (60-115)
--- NOTE | 2020-12-29 13:25 | P.PNCC_ITS ---
Subjective Subjective Date of Service: 12/29/20 Interval History: 35-year-old gentleman with underlying history of diabetes mellitus admitted on 12/28/2020 with 3 day history of slowly worsening abdominal pain associated with nausea, vomiting, and polyuria. On ER evaluation patient was noted to be in diabetic ketoacidosis, he has been started on IV fluid resuscitation and insulin drip and admitted to intensive care unit. He denies any recent infections or physiologic stressors. Titrated off insulin drip today. Abdominal pain resolved. Critical Care Time (minutes): 0 Physical Exam Vital Signs: Vital Signs: Last Vital Signs Temp 98.2 F 12/29/20 08:00 Pulse 79 12/29/20 13:00 Resp 14 12/29/20 13:00 BP 122/72 12/29/20 13:00 Pulse Ox 100 12/29/20 13:00 Oxygen Flow Rate 2 12/28/20 06:15 Body Mass Index 26.6 Const: General: no acute distress, alert and awake Eyes: Sclerae: sclerae normal EOM: EOMs intact bilaterally Neck: Neck: Yes no lymphadenopathy, Yes trachea midline and Yes supple Resp: Effort & Inspection: normal respiratory effort and no respiratory distress Auscultation: clear to auscultation bilaterally Cardio: Rate: regular rate Rhythm: regular rhythm Heart sounds: no gal lops, no murmurs and no rubs GI: Palpation (GI): Soft to palpation and Other GI palpation findings present ( Nontender) Auscultation: normal bowel sounds Extrem: General: Yes no pedal edema, No clubbing and No cyanosis Objective Data Labs CBC & Chem 7: 12/29/20 05:16 12/29/20 11:48 Labs: Laboratory Results - last 24 hr 12/28/20 12/28/20 12/28/20 13:18 13:40 14:18 WBC RBC Hgb Hct MCV MCH MCHC RDW Plt Count MPV Immature Gran % (Auto) Neut % (Auto) Lymph % (Auto) Randall % (Auto) Eos % (Auto) Baso % (Auto) Lymph # (Auto) Randall # (Auto) Eos # (Auto) Baso # (Auto) Abs Immat Gran (auto) Absolute Neuts (auto) Absolute Nucleated RBC Nucleated RBC % (auto) VBG pH VBG pCO2 VBG pO2 VBG HCO3 VBG O2 Saturation VBG Base Excess Sodium Potassium Chloride Carbon Dioxide Anion Gap BUN Creatinine Estim Creat Clear Calc Estimated GFR POC Glucose 92 122 H Random Glucose Calcium Phosphorus Magnesium Total Bilirubin AST ALT Alkaline Phosphatase Total Protein Albumin Urine Opiates Screen POSITIVE H Ur Barbiturates Screen Not Detected Ur Phencyclidine Scrn Not Detected Ur Amphetamines Screen Not Detected U Benzodiazepines Scrn Not Detected Urine Cocaine Screen Not Detected U Marijuana (THC) Screen POSITIVE H 12/28/20 12/28/20 12/28/20 15:30 17:11 18:02 WBC RBC Hgb Hct MCV MCH MCHC RDW Plt Count MPV Immature Gran % (Auto) Neut % (Auto) Lymph % (Auto) Randall % (Auto) Eos % (Auto) Baso % (Auto) Lymph # (Auto) Randall # (Auto) Eos # (Auto) Baso # (Auto) Abs Immat Gran (auto) Absolute Neuts (auto) Absolute Nucleated RBC Nucleated RBC % (auto) VBG pH VBG pCO2 VBG pO2 VBG HCO3 VBG O2 Saturation VBG Base Excess Sodium Potassium Chloride Carbon Dioxide Anion Gap BUN Creatinine Estim Creat Clear Calc Estimated GFR POC Glucose 184 H 200 H 218 H Random Glucose Calcium Phosphorus Magnesium Total Bilirubin AST ALT Alkaline Phosphatase Total Protein Albumin Urine Opiates Screen Ur Barbiturates Screen Ur Phencyclidine Scrn Ur Amphetamines Screen U Benzodiazepines Scrn Urine Cocaine Screen U Marijuana (THC) Screen 12/28/20 12/28/20 12/28/20 18:33 18:35 19:11 WBC RBC Hgb Hct MCV MCH MCHC RDW Plt Count MPV Immature Gran % (Auto) Neut % (Auto) Lymph % (Auto) Randall % (Auto) Eos % (Auto) Baso % (Auto) Lymph # (Auto) [place] # (Auto) Eos # (Auto) Baso # (Auto) Abs Immat Gran (auto) Absolute Neuts (auto) Absolute Nucleated RBC Nucleated RBC % (auto) VBG pH 7.08 L* VBG pCO2 16 VBG pO2 53 VBG HCO3 5 L VBG O2 Saturation 85.0 VBG Base Excess -22.5 Sodium 131 L Potassium 5.2 H Chloride 108 Carbon Dioxide 6 L* D Anion Gap 22 H BUN 11 Creatinine 1.48 H Estim Creat Clear Calc 65.2 Estimated GFR 54 POC Glucose 258 H Random Glucose 246 H D Calcium 8.4 Phosphorus Magnesium Total Bilirubin AST ALT Alkaline Phosphatase Total Protein Albumin Urine Opiates Screen Ur Barbiturates Screen Ur Phencyclidine Scrn Ur Amphetamines Screen U Benzodiazepines Scrn Urine Cocaine Screen U Marijuana (THC) Screen 12/28/20 12/28/20 12/28/20 20:14 20:58 21:56 WBC RBC Hgb Hct MCV MCH MCHC RDW Plt Count MPV Immature Gran % (Auto) Neut % (Auto) Lymph % (Auto) Randall % (Auto) Eos % (Auto) Baso % (Auto) Lymph # (Auto) Randall # (Auto) Eos # (Auto) Baso # (Auto) Abs Immat Gran (auto) Absolute Neuts (auto) Absolute Nucleated RBC Nucleated RBC % (auto) VBG pH VBG pCO2 VBG pO2 VBG HCO3 VBG O2 Saturation VBG Base Excess Sodium Potassium Chloride Carbon Dioxide Anion Gap BUN Creatinine Estim Creat Clear Calc Estimated GFR POC Glucose 261 H 234 H 210 H Random Glucose Calcium Phosphorus Magnesium Total Bilirubin AST ALT Alkaline Phosphatase Total Protein Albumin Urine Opiates Screen Ur Barbiturates Screen Ur Phencyclidine Scrn Ur Amphetamines Screen U Benzodiazepines Scrn Urine Cocaine Screen U Marijuana (THC) Screen 12/28/20 12/28/20 12/29/20 23:11 23:52 00:09 WBC RBC Hgb Hct MCV MCH MCHC RDW Plt Count MPV Immature Gran % (Auto) Neut % (Auto) Lymph % (Auto) Randall % (Auto) Eos % (Auto) Baso % (Auto) Lymph # (Auto) Randall # (Auto) Eos # (Auto) Baso # (Auto) Abs Immat Gran (auto) Absolute Neuts (auto) Absolute Nucleated RBC Nucleated RBC % (auto) VBG pH VBG pCO2 VBG pO2 VBG HCO3 VBG O2 Saturation VBG Base Excess Sodium 133 L Potassium 4.2 Chloride 111 H Carbon Dioxide 7 L* Anion Gap 19 BUN 9 Creatinine 1.30 Estim Creat Clear Calc 74.3 Estimated GFR > 60 POC Glucose 189 H 161 H Random Glucose 172 H Calcium 8.8 Phosphorus Magnesium Total Bilirubin AST ALT Alkaline Phosphatase Total Protein Albumin Urine Opiates Screen Ur Barbiturates Screen Ur Phencyclidine Scrn Ur Amphetamines Screen U Benzodiazepines Scrn Urine Cocaine Screen U Marijuana (THC) Screen 12/29/20 12/29/20 12/29/20 00:55 01:59 02:49 WBC RBC Hgb Hct MCV MCH MCHC RDW Plt Count MPV Immature Gran % (Auto) Neut % (Auto) Lymph % (Auto) Randall % (Auto) Eos % (Auto) Baso % (Auto) Lymph # (Auto) Randall # (Auto) Eos # (Auto) Baso # (Auto) Abs Immat Gran (auto) Absolute Neuts (auto) Absolute Nucleated RBC Nucleated RBC % (auto) VBG pH VBG pCO2 VBG pO2 VBG HCO3 VBG O2 Saturation VBG Base Excess Sodium Potassium Chloride Carbon Dioxide Anion Gap BUN Creatinine Estim Creat Clear Calc Estimated GFR POC Glucose 149 H 164 H 128 H Random Glucose Calcium Phosphorus Magnesium Total Bilirubin AST ALT Alkaline Phosphatase Total Protein Albumin Urine Opiates Screen Ur Barbiturates Screen Ur Phencyclidine Scrn Ur Amphetamines Screen U Benzodiazepines Scrn Urine Cocaine Screen U Marijuana (THC) Screen 12/29/20 12/29/20 12/29/20 04:03 05:15 05:16 WBC 13.0 H RBC 4.52 L Hgb 13.8 L Hct 40.2 L MCV 88.9 D MCH 30.5 MCHC 34.3 RDW 11.9 Plt Count 260 D MPV 8.4 L Immature Gran % (Auto) 0.6 H Neut % (Auto) 85.9 H Lymph % (Auto) 6.3 L Randall % (Auto) 7.1 Eos % (Auto) 0.0 Baso % (Auto) 0.1 Lymph # (Auto) 0.8 L Randall # (Auto) 0.9 Eos # (Auto) 0.0 Baso # (Auto) 0.0 Abs Immat Gran (auto) 0.08 H Absolute Neuts (auto) 11.1 H Absolute Nucleated RBC 0.000 Nucleated RBC % (auto) 0.0 VBG pH 7.29 L VBG pCO2 25 VBG pO2 59 VBG HCO3 12 L VBG O2 Saturation 92.0 VBG Base Excess -11.9 Sodium Potassium Chloride Carbon Dioxide Anion Gap BUN Creatinine Estim Creat Clear Calc Estimated GFR POC Glucose 127 H Random Glucose Calcium Phosphorus Magnesium Total Bilirubin AST ALT Alkaline Phosphatase Total Protein Albumin Urine Opiates Screen Ur Barbiturates Screen Ur Phencyclidine Scrn Ur Amphetamines Screen U Benzodiazepines Scrn Urine Cocaine Screen U Marijuana (THC) Screen 12/29/20 12/29/20 12/29/20 05:16 05:57 06:56 WBC RBC Hgb Hct MCV MCH MCHC RDW Plt Count MPV Immature Gran % (Auto) Neut % (Auto) Lymph % (Auto) Randall % (Auto) Eos % (Auto) Baso % (Auto) Lymph # (Auto) Randall # (Auto) Eos # (Auto) Baso # (Auto) Abs Immat Gran (auto) Absolute Neuts (auto) Absolute Nucleated RBC Nucleated RBC % (auto) VBG pH VBG pCO2 VBG pO2 VBG HCO3 VBG O2 Saturation VBG Base Excess Sodium 135 Potassium 3.7 Chloride 110 H Carbon Dioxide 13 L Anion Gap 16 BUN 8 L Creatinine 1.18 Estim Creat Clear Calc 81.8 Estimated GFR > 60 POC Glucose 144 H 144 H Random Glucose 152 H Calcium 9.0 Phosphorus 1.4 L Magnesium 1.9 Total Bilirubin 0.3 AST 16 ALT 11 Alkaline Phosphatase 107 D Total Protein 6.6 Albumin 4.1 Urine Opiates Screen Ur Barbiturates Screen Ur Phencyclidine Scrn Ur Amphetamines Screen U Benzodiazepines Scrn Urine Cocaine Screen U Marijuana (THC) Screen 12/29/20 12/29/20 12/29/20 07:57 08:55 10:09 WBC RBC Hgb Hct MCV MCH MCHC RDW Plt Count MPV Immature Gran % (Auto) Neut % (Auto) Lymph % (Auto) Randall % (Auto) Eos % (Auto) Baso % (Auto) Lymph # (Auto) Randall # (Auto) Eos # (Auto) Baso # (Auto) Abs Immat Gran (auto) Absolute Neuts (auto) Absolute Nucleated RBC Nucleated RBC % (auto) VBG pH VBG pCO2 VBG pO2 VBG HCO3 VBG O2 Saturation VBG Base Excess Sodium Potassium Chloride Carbon Dioxide Anion Gap BUN Creatinine Estim Creat Clear Calc Estimated GFR POC Glucose 137 H 129 H 117 H Random Glucose Calcium Phosphorus Magnesium Total Bilirubin AST ALT Alkaline Phosphatase Total Protein Albumin Urine Opiates Screen Ur Barbiturates Screen Ur Phencyclidine Scrn Ur Amphetamines Screen U Benzodiazepines Scrn Urine Cocaine Screen U Marijuana (THC) Screen 12/29/20 12/29/20 12/29/20 10:59 11:48 12:17 WBC RBC Hgb Hct MCV MCH MCHC RDW Plt Count MPV Immature Gran % (Auto) Neut % (Auto) Lymph % (Auto) Randall % (Auto) Eos % (Auto) Baso % (Auto) Lymph # (Auto) Randall # (Auto) Eos # (Auto) Baso # (Auto) Abs Immat Gran (auto) Absolute Neuts (auto) Absolute Nucleated RBC Nucleated RBC % (auto) VBG pH VBG pCO2 VBG pO2 VBG HCO3 VBG O2 Saturation VBG Base Excess Sodium 137 Potassium 3.4 Chloride 109 H Carbon Dioxide 18 L Anion Gap 13 BUN 5 L Creatinine 1.07 Estim Creat Clear Calc 83.0 Estimated GFR > 60 POC Glucose 138 H 164 H Random Glucose 161 H Calcium 9.0 Phosphorus Magnesium Total Bilirubin AST ALT Alkaline Phosphatase Total Protein Albumin Urine Opiates Screen Ur Barbiturates Screen Ur Phencyclidine Scrn Ur Amphetamines Screen U Benzodiazepines Scrn Urine Cocaine Screen U Marijuana (THC) Screen 12/29/20 12:52 WBC RBC Hgb Hct MCV MCH MCHC RDW Plt Count MPV Immature Gran % (Auto) Neut % (Auto) Lymph % (Auto) Randall % (Auto) Eos % (Auto) Baso % (Auto) Lymph # (Auto) Randall # (Auto) Eos # (Auto) Baso # (Auto) Abs Immat Gran (auto) Absolute Neuts (auto) Absolute Nucleated RBC Nucleated RBC % (auto) VBG pH VBG pCO2 VBG pO2 VBG HCO3 VBG O2 Saturation VBG Base Excess Sodium Potassium Chloride Carbon Dioxide Anion Gap BUN Creatinine Estim Creat Clear Calc Estimated GFR POC Glucose 148 H Random Glucose Calcium Phosphorus Magnesium Total Bilirubin AST ALT Alkaline Phosphatase Total Protein Albumin Urine Opiates Screen Ur Barbiturates Screen Ur Phencyclidine Scrn Ur Amphetamines Screen U Benzodiazepines Scrn Urine Cocaine Screen U Marijuana (THC) Screen Microbiology Microbiology Results: Microbiology 12/28/20 08:20 Blood - Venous Blood Culture - Preliminary No growth after 24 hours. 12/28/20 07:43 Blood - Venous Blood Culture - Preliminary No growth after 24 hours. Progress Note: A&P Assessment and plan (1) Diabetic keto-acidosis: Status: Acute Assessment and Plan: Assessment: 35-year-old gentleman with underlying diabetes mellitus admitted with diabetic ketoacidosis requiring insulin drip, further complicated by acute renal failure and acute hyperkalemia. Plan: Neuro: No acute issues. Cardiac: No acute issues. Pulmonary: No acute issues. Renal: Acute renal failure, likely secondary to underlying diabetic ketoacidosis, non oliguric, resolved. Hyperkalemia, resolved. Endo: Diabetic ketoacidosis, titrated off insulin drip. Continue with Lantus and sliding scale insulin. GI: No acute issues. ID: No acute issues Heme/Onc: No acute issues. Psych: No acute issues. Miscellaneous: No acute issues. Prophylaxis: Heparin Diet: Diabetic (2) Acute renal failure: Status: Acute (3) Acute hyperkalemia: Status: Acute
--- NOTE | 2020-12-29 13:33 | MHC.CLN ---
RECOMMEND 1500DM DIET BASED ON ESTIMATED NEEDS
[2020-12-29 14:28] LABS: Glucose, Whole Blood 176 mg/dL (60-115)
[2020-12-29] MEDS: Insulin Lispro 100 UNIT/ML 3 ML VIAL SUBCUT ×3 (14:37→21:48)
[2020-12-29] MEDS: Metoclopramide HCl 10 MG/2 ML VIAL 5 MG IVPUSH (15:53)
[2020-12-29 16:32] LABS: Glucose, Whole Blood 161 mg/dL (60-115)
--- NOTE | 2020-12-29 17:36 | PC.NURSE ---
VSS, pt a&o x3, able to make needs known. Able to transition to SQ insulin. Pt c/o nausea, zofran/reglan given per emar. Pt requesting his mother be added to chart, Modesta Quiroz, when asked pt, pt requested his mother not be added and said he would let /mother know.
--- NOTE | 2020-12-29 18:24 | PC.NURSE ---
pt arrived to unit via wheelchair. denies pain. States he feels better than earlier. Still c/o some nausea.oriented to room
[2020-12-29 19:36] LABS: Anion Gap 18 (12-20); Blood Urea Nitrogen 5 mg/dL (9-16); Calcium 8.8 mg/dL (8.4-10.2); Carbon Dioxide 15 mmol/L (22-29); Chloride 105 mmol/L (96-108); Estimated Glomerular Filt Rate > 60; Glucose Random 184 mg/dL (60-115); Potassium 3.2 mmol/L (3.3-5.1); Sodium 135 mmol/L (135-145)
[2020-12-29 20:44] LABS: Glucose, Whole Blood 203 mg/dL (60-115)
[2020-12-29] MEDS: diphenhydrAMINE HCL 50 MG/ML VIAL 25 MG IVPUSH (21:48)
[2020-12-30] MEDS: Heparin Sodium,Porcine 5,000 UNIT/ML VIAL 5000 UNIT SUBCUT ×2 (03:12→09:18)
[2020-12-30] MEDS: ondansetron HCL 4 MG/2 ML VIAL IVPUSH ×2 (03:21→10:57)
[2020-12-30 04:00] VITALS: BP 134/103; PULSE 84; RESP 16; TEMP 36.6; O2SAT 99
[2020-12-30 05:51] LABS: MANUAL DIFF FLAG NO
[2020-12-30 05:59] LABS: Basophils Percent Auto 0.2 % (0-2); Eosinophils Percent Auto 0.1 % (0-4); Hematocrit 37.9 % (42-52); Hemoglobin 13.3 g/dl (14.0-18.0); Imm Gran Abs Auto 0.07 X10*3/uL (0.00-0.03); Imm Gran Pct Auto 0.6 % (0.0-0.4); Lymphocytes Absolute Auto 1.1 X10*3/uL (1.2-4.9); Lymphocytes Percent Auto 9.5 % (20-40); Mean Corpuscular HGB Conc 35.1 g/dl (31.0-36.0); Mean Corpuscular Hemoglobin 30.5 pg (27.0-33.0); Mean Corpuscular Volume 86.9 fL (80-98); Mean Platelet Volume 8.9 fL (9.4-12.4); Monocytes Absolute Auto 0.9 X10*3/uL (0.1-1.2); Neutrophils Absolute Auto 9.6 X10*3/uL (2.0-8.3); Neutrophils Percent Auto 81.6 % (45-73); Platelet Count 243 X10*3/uL (160-400); Red Blood Count 4.36 X10*6/uL (4.60-5.80); Red Cell Distribution Width 11.8 % (11.0-16.0); White Blood Count 11.7 X10*3/uL (4.8-10.8)
[2020-12-30 06:26] LABS: Anion Gap 21 (12-20); Blood Urea Nitrogen 7 mg/dL (9-16); Calcium 8.8 mg/dL (8.4-10.2); Carbon Dioxide 18 mmol/L (22-29); Chloride 98 mmol/L (96-108); Creatinine Clr Calc Pharmacy 88.8; Estimated Glomerular Filt Rate > 60; Glucose Random 348 mg/dL (60-115); Potassium 3.3 mmol/L (3.3-5.1); Sodium 134 mmol/L (135-145)
[2020-12-30 07:23] VITALS: BP 158/88; PULSE 80; RESP 17; TEMP 36.7; O2SAT 99
[2020-12-30 07:30] LABS: Glucose, Whole Blood 382 mg/dL (60-115)
[2020-12-30 08:00] VITALS: BMI 26.6
[2020-12-30] MEDS: Insulin Lispro 100 UNIT/ML 3 ML VIAL SUBCUT ×2 (08:00→11:48)
[2020-12-30] MEDS: Insulin Glargine,Hum.rec.anlog 100 UNIT/ML 10 ML VIAL 50 UNIT SUBCUT (09:17)
[2020-12-30] MEDS: Omeprazole 40 MG CAPSULE.DR PO (09:19)
--- NOTE | 2020-12-30 11:00 | PC.NURSE ---
0730- Pt POC 382. Dr. Berry made aware. No additional Humalog ordered. 10units Humalog given per EMAR. Pt Lantus increased to 50 units, administered per EMAR. Pt ate 25% of breakfast. No other complaints at this time.
[2020-12-30 11:19] VITALS: BP 164/84; PULSE 67; RESP 21; TEMP 36.9; O2SAT 100
[2020-12-30 11:33] LABS: Glucose, Whole Blood 206 mg/dL (60-115)
[2020-12-30] MEDS: Sertraline HCL 50 MG TABLET 150 MG PO (13:11)
--- NOTE | 2020-12-30 13:30 | PM.DS ---
DS: Providers Provider Date of Service: 12/30/20 Date of admission: 12/28/20 07:54 Primary care physician: Unknown Physician DS: Diagnosis Discharge Diagnosis (1) Diabetic keto-acidosis: Status: Acute (2) Acute renal failure: Status: Acute (3) Acute hyperkalemia: Status: Acute (4) Abdominal pain: Status: Acute DS: Medications Discharge Medications Home Medications: Home Medications Medication Instructions Recorded Confirmed insulin lispro [Humalog KwikPen See Protocol SUBCUT TIDWMEAL 12/28/20 12/28/20 Insulin] sertraline 1.5 tab PO DAILY 12/28/20 12/28/20 sertraline 2 tab PO DAILY 12/28/20 12/28/20 Previous Rx's Medication Instructions Recorded Lantus Solostar U-100 Insulin 50 unit SUBCUT DAILY #0 ml 12/30/20 DS: Summary Hospital Course Hospital Course: Admission note HPI from ICU provider 35-year-old gentleman with underlying history of diabetes mellitus admitted on 12/28/2020 with 3 day history of slowly worsening abdominal pain associated with nausea, vomiting, and polyuria. On ER evaluation patient was noted to be in diabetic ketoacidosis, he has been started on IV fluid resuscitation and insulin drip and admitted to intensive care unit. He denies any recent infections or physiologic stressors. Hospital course The patient was admitted to the hospital for treatment of diabetic ketoacidosis associated with acute kidney injury. He was admitted to the intensive care unit and treated with IV fluid and IV insulin with good response as his sugar control improved significantly and his anion gap closed. He was able to tolerate diet and and his insulin and this was increased to 15 units with better control of blood sugar around 200. Patient was advised to follow-up with [facility] disc clinic for consideration of insulin pump for better control of his sugar. Time Spent with Patient Time attestation: Total time spent providing and/or coordinating discharge services: Discharge coordination time: Greater than 30 minutes Quality: Stroke Does the patient have a stroke diagnosis?: No Physical Exam Vital Signs: Vital Signs: Last Vital Signs Temp 98.4 F 12/30/20 11:19 Pulse 67 12/30/20 11:19 Resp 21 H 12/30/20 11:19 BP 164/84 H 12/30/20 11:19 Pulse Ox 100 12/30/20 11:19 Oxygen Flow Rate 2 12/28/20 06:15 Body Mass Index 26.6 Const: Other: Constitutional : Alert, oriented, not in distress Neck : Normal inspection, Supple Cardiovascular : RRR, S1 S2, no lower extremity edema Respiratory : Good bilateral air entry, no crackles, wheezes or rhonchi Gastrointestinal: soft, lax, Normal bowel sounds, Non tender Skin : Warm/Dry, No rash Neurological : Alert & oriented x3, No focal deficit DS: Data Data Completed and Pending Labs on day of discharge: Laboratory Results - last 24 hr 12/29/20 12/29/20 12/29/20 14:25 16:29 18:52 WBC RBC Hgb Hct MCV MCH MCHC RDW Plt Count MPV Immature Gran % (Auto) Neut % (Auto) Lymph % (Auto) [place] % (Auto) Eos % (Auto) Baso % (Auto) Lymph # (Auto) [place] # (Auto) Eos # (Auto) Baso # (Auto) Abs Immat Gran (auto) Absolute Neuts (auto) Absolute Nucleated RBC Nucleated RBC % (auto) Sodium 135 Potassium 3.2 L Chloride 105 Carbon Dioxide 15 L Anion Gap 18 BUN 5 L Creatinine 1.02 Estim Creat Clear Calc 87.0 Estimated GFR > 60 POC Glucose 176 H 161 H Random Glucose 184 H Calcium 8.8 12/29/20 12/30/20 12/30/20 20:37 05:24 05:25 WBC 11.7 H RBC 4.36 L Hgb 13.3 L Hct 37.9 L MCV 86.9 MCH 30.5 MCHC 35.1 RDW 11.8 Plt Count 243 MPV 8.9 L Immature Gran % (Auto) 0.6 H Neut % (Auto) 81.6 H Lymph % (Auto) 9.5 L [place] % (Auto) 8.0 Eos % (Auto) 0.1 Baso % (Auto) 0.2 Lymph # (Auto) 1.1 L [place] # (Auto) 0.9 Eos # (Auto) 0.0 Baso # (Auto) 0.0 Abs Immat Gran (auto) 0.07 H Absolute Neuts (auto) 9.6 H Absolute Nucleated RBC 0.000 Nucleated RBC % (auto) 0.0 Sodium 134 L Potassium 3.3 Chloride 98 Carbon Dioxide 18 L Anion Gap 21 H BUN 7 L Creatinine 1.00 Estim Creat Clear Calc 88.8 Estimated GFR > 60 POC Glucose 203 H Random Glucose 348 H D Calcium 8.8 12/30/20 12/30/20 07:22 11:20 WBC RBC Hgb Hct MCV MCH MCHC RDW Plt Count MPV Immature Gran % (Auto) Neut % (Auto) Lymph % (Auto) [place] % (Auto) Eos % (Auto) Baso % (Auto) Lymph # (Auto) [place] # (Auto) Eos # (Auto) Baso # (Auto) Abs Immat Gran (auto) Absolute Neuts (auto) Absolute Nucleated RBC Nucleated RBC % (auto) Sodium Potassium Chloride Carbon Dioxide Anion Gap BUN Creatinine Estim Creat Clear Calc Estimated GFR POC Glucose 382 H* 206 H Random Glucose Calcium Preliminary micro results at discharge 12/28/20 08:20 Blood Culture - Preliminary Blood - Venous No growth after 48 hours. 12/28/20 07:43 Blood Culture - Preliminary Blood - Venous No growth after 48 hours. Discharge Plan Discharge Patient Disposition: Home, Self-Care Discharge Diagnosis: Diabetic ketoacidosis Uncontrolled diabetes Kidney injury Referrals: Physician,Unknown [Primary Care Provider] - 1 Week Discharge Medications: Continued sertraline 100 mg tablet 1.5 tab PO DAILY RF: 0 sertraline 50 mg tablet 2 tab PO DAILY RF: 0 insulin lispro [Humalog KwikPen Insulin] 100 unit/mL insulin pen See Protocol unit subcut TIDWMEAL RF: 0 Changed Lantus Solostar U-100 Insulin 100 unit/mL (3 mL) insulin pen 50 unit subcut DAILY Qty: 0 RF: 0 Discharge Orders: Discharge Order (Routine); Ordered 12/30/20 Ordered By: Ethan Berry Diet: advance to usual diet Activity on Discharge: As tolerated Stand Alone Forms: Patient Portal Discharge page Care Plan Goals: Read below Health Concerns: Read below Plan of Treatment: You were admitted to the hospital for evaluation of abdominal pain. Your blood work showed acute kidney injury, significantly elevated blood sugar levels with acidosis. Admitted to the ICU and treated with IV fluids and insulin with good response. Your Lantus dose was adjusted and you were able to tolerate diet well. Assessment: Increase Lantus to 50 units today, continue to monitor your blood sugars at home To follow-up with diabetes clinic to considers insulin pump Can use [id number] Tums or omeprazole for the upset stomach Discharge Date/Time: 12/30/20 13:30
--- NOTE | 2020-12-30 15:20 | MHC.CM.PN ---
NURSE PRE PAROLE COUNSELING AIDE NOTE ELECTRONIC MEDICAL RECORD REVIEWED CASE DISCUSSED WITH STAFF NURSE AND ON MULTIPLE DISCIPLIANRY ROUNDS . PATIENT WAS DISCHARGED [facility] TODAY NO [facility] SERVICES (NO ORDER BY [facility] FOR THEM) DISCHARGE PLAN HOME NO SERVICES SELF RESUMPTION OF HIS PCP FOR POST [facility] FOLLOW UP ADN HIS PROGRAM CHECKER TRANSPORTATION FAMILY
== END 2020-12-30 13:30 | disposition home or self-care (01) | DRG 638 ==
LOC: HO.ED 08:10 → HO.EDOVER 08:28 → HO.ICU 08:38 → HO.S3 12-29 16:50
PROVIDERS: Internal Medicine; Registered Nurse Community Health; Admitting Provider Internal Medicine Pulmonary Disease; Emergency Provider Emergency Medicine Emergency Medical Services; PCP Nurse Practitioner Primary Care; Visit Provider Student in an Organized Health Care Education/Training Program
DX: E10.10 Type 1 diabetes mellitus with ketoacidosis without coma (principal); N17.9 Acute kidney failure, unspecified; E87.5 Hyperkalemia; Z20.822 Contact with and (suspected) exposure to COVID-19; Z87.891 Personal history of nicotine dependence; Z88.0 Allergy status to penicillin; Z79.899 Other long term (current) drug therapy
CPT/HCPCS: 36415; 80048; 80053; 80307; 81001; 82009; 82947; 83605; 83690; 83735; 84100; 85007; 85025; 85027; 87040; 87635; 93005; 96374; 96375; 99285; 99291; 99292; J1200; J2270; J2405; J2765

== ENCOUNTER 2022-05-06 16:10 | Inpatient (IN) | payer OTHER, SELFPAY ==
[2022-05-06 17:37] VITALS: BP 148/94; PULSE 105; RESP 22; TEMP 36.9; O2SAT 99; BMI 29.1
[2022-05-06 18:27] LABS: MANUAL DIFF FLAG NO
[2022-05-06 18:31] LABS: Appearance Urine Clear; Color Urine Yellow; Glucose Urine UA >=1000 mg/dL (Negative); Leukocyte Esterase Urine Negative (Negative); Nitrite Urine Negative (Negative); PH 5.5 (5.0-9.0); Specific Gravity - Urine >= 1.030 (1.005-1.025); UMIC TRIGGER UACC YES; Urine Blood Small (1+) (Negative); Urine Ketones >=160 mg/dL (Negative); Urine Protein 100 (2+) mg/dL (Neg-Trace)
[2022-05-06 18:31] LABS: Basophils Absolute Auto 0.1 X10*3/uL (0.0-0.2); Basophils Percent Auto 0.4 % (0-2); Hematocrit 48.8 % (42.0-52.0); Hemoglobin 16.1 g/dl (14.0-18.0); Imm Gran Abs Auto 0.63 X10*3/uL (0.00-0.03); Imm Gran Pct Auto 2.7 % (0.0-0.4); Lymphocytes Absolute Auto 2.1 X10*3/uL (1.2-4.9); Lymphocytes Percent Auto 8.8 % (20-40); Mean Corpuscular Hemoglobin 30.5 pg (27.0-33.0); Mean Corpuscular Volume 92.4 fL (80.0-98.0); Mean Platelet Volume 8.5 fL (9.4-12.4); Monocytes Absolute Auto 0.9 X10*3/uL (0.1-1.2); Neutrophils Absolute Auto 19.8 x10*3/uL (2.0-8.3); Neutrophils Percent Auto 84.1 % (45-73); Platelet Count 497 X10*3/uL (160-400); Red Blood Count 5.28 X10*6/uL (4.60-5.80); Red Cell Distribution Width 11.9 % (11.0-16.0); White Blood Count 23.5 X10*3/uL (4.8-10.8)
[2022-05-06 18:40] LABS: Bacteria Urine None Seen (None Seen); Hyaline Casts Urine 0-2 /LPF (0-2); RBC Urine 0-2 /HPF (0-2); Squamous Epithelial Cell Urine 0-2 /HPF (0-2); WBC Urine 0-5 /HPF (0-5)
[2022-05-06 18:43] LABS: COVID-19 Test Negative (Negative); IDNOW Serial# 55D5AD1C
[2022-05-06 18:47] LABS: Glucose, Whole Blood 349 mg/dL (60-115)
[2022-05-06 18:52] LABS: Blood Urea Nitrogen 16 mg/dL (9-16); Estimated Glomerular Filt Rate 45
[2022-05-06 19:05] LABS: Anion Gap 33 (12-20); Carbon Dioxide 7 mmol/L (22-29); Chloride 99 mmol/L (96-108); Glucose Random 447 mg/dL (60-115); Potassium 6.6 mmol/L (3.3-5.1); Sodium 132 mmol/L (135-145)
[2022-05-06 19:44] LABS: Venous Blood Gas Refer to POC result
[2022-05-06] MEDS: Metoclopramide HCl 10 MG/2 ML VIAL IVPUSH (19:45)
[2022-05-06] MEDS: Insulin Regular, Human 100 UNIT/ML 3 ML VIAL IVPUSH (19:45)
--- NOTE | 2022-05-06 19:46 | ED.NAVMDI ---
HPI - Nausea/Vomiting/Diarrhea General Chief complaint: Nausea/Vomiting/Diarrhea Stated complaint: DKA Time Seen by Provider: 05/06/22 19:21 Source: patient and family Mode of arrival: ambulatory Limitations: no limitations History of Present Illness HPI Narrative: The patient is a 36 y/o male with a PMH of T1D diagnosed at the age of 15, presenting with possible DKA. Patient is endorsing nausea, vomiting, high blood sugar, dry mouth and body aches. The patient states that he is on 45 units of Lantus at night and uses a 1-10 sliding scale of insulin, he last took his Lantus last night at 5pm. The patient states he felt off this morning, and started to feel worse throughout the day. He states he has vomited at least 7 times. He denies any signs of infection - fever, cough, shortness of breath, diarrhea, rashes, infected abrasions, or sore throat. Though indorses increase in social and financial stress and thinks that is what put him into DKA. He reports his last A1C was 10, and his last episode of DKA was in 2020. He follows with Endocrine at [facility] and last saw them after his DKA last year. Denies IV drug use, alcohol use. MD elicited complaint: nausea, vomiting and flank pain Pertinent past history: other (DM) Onset (ago): day(s) (1) Associated nausea: Yes Associated abdominal pain: No Location of pain: none Exacerbating factors: eating Relieving factors: none Associated symptoms: myalgias, loss of appetite, malaise, nausea/vomiting and weakness Related Data Home Medications Medication Instructions Recorded Confirmed insulin lispro 100 unit/mL 10 - 15 unit subcut TIDWMEAL 12/28/20 05/06/22 subcutaneous pen (Humalog KwikPen (U-100) Insulin) sertraline 100 mg tablet 2 tab PO DAILY 12/28/20 05/06/22 insulin glargine 100 unit/mL (3 45 unit subcut BEDTIME 05/06/22 05/06/22 mL) subcutaneous pen (Lantus Solostar U-100 Insulin) melatonin 5 mg tablet 5 mg PO BEDTIME PRN Sleep 05/06/22 05/06/22 Allergies Allergy/AdvReac Type Severity Reaction Status Date / Time Penicillins Allergy Hives Verified 12/28/20 06:23 Review of Systems Review of Systems: Constitutional: No Fever, No Chills, + generalized body aches ENT/Mouth: No sore throat, No Rhinorrhea, No Swallowing Difficulty, + hoarse voice Eyes: No Eye Pain, No Swelling, No Redness Cardiovascular: No Chest Pain, No SOB, No Orthopnea, No Edema Respiratory: No Cough, No Sputum, No Wheezing, No dyspnea Gastrointestinal: + Nausea, + Vomiting, No Diarrhea, No abdominal Pain, No Hematochezia, No Melena Genitourinary: No Dysuria, No Urinary Frequency, No Hematuria Musculoskeletal: No joint pain, + Myalgias (generalized/ global) Skin: No Skin Lesions, No rash Neuro: No Weakness, No Numbness, No Dizziness, No Headache Heme/Lymph: No Bruising, No Lymphadenopathy Endocrine: + Polyuria, + Polydipsia Yes all other systems are reviewed and are negative Gastrointestinal: Gastrointestinal: Reports nausea PMFSH Past Medical History Medical History Depression Diabetes type I Social History Social History Household Members: Spouse Housing: House Do you presently have visiting nurse or other home services: No Patient Tobacco Use Status: Former Tobacco user Tobacco use type: Cigarette Years Smoked: 2 Second Hand Smoke Exposure: Yes (MINIMAL) Substance Use Type: Marijuana Advance Directives: No Advance Directives Information Provided: No service: No Current occupational status: employed Physical Exam Vital Signs: Vital Signs: Last Vital Signs Temp 98.7 F 05/06/22 20:33 Pulse 122 H 05/06/22 20:33 Resp 21 H 05/06/22 20:33 BP 168/96 H 05/06/22 20:33 Pulse Ox 100 05/06/22 20:33 O2 Del Method 05/06/22 20:33 BMI result Body Mass Index 29.1 Appearance: Alert. Oriented X3. No acute distress. Eyes: Pupils equal, round and reactive to light. ENT: Pharynx normal, erythema of the auditory canal and surrounding the boarder of the TM. Dry mucous membranes. Neck: Normal inspection. Neck supple. CVS: Normal heart rate and rhythm. Pulses normal. Respiratory: + Kussmaul respirations. No respiratory distress. Breath sounds normal. Abdomen: Soft and nontender. Skin: Skin warm and dry. Normal skin color. Normal skin turgor. No rashes. Extremities: No lower extremity edema. Neuro: Oriented X 3. No motor deficit. No sensory deficit. Course Course Course Narrative: 7:45 - 36 y/o male with a PMH of T1D diagnosed at the age of 15, presenting with possible DKA. Patient is endorsing nausea, vomiting, high blood sugar, dry mouth and body aches. Physical exam significant for Kussmaul respirations, dry mucus membranes. Lab values consistent with DKA with High Anion Gap Metabolic Acidosis. Patient is Tachycardic, tapicnic, with leukocytosis likely secondary to vomiting. There are no signs of sepsis or infection at this time. No abx indicated at this time. Plan: - Repeat Chemistry in 1 hour (9pm) - monitor K+ - Admit to ICU - Insulin drip and IV fluids per protocol - CXR - Flu swab Reevaluation(s) Reevaluation #1: CXR: No signs of pneumonia. UA without infection. TT Dr. Khan for admission but no response. Spoke with ICU ERIN Mckeon who will admit - recommend CT abd/pelvis given leukocytosis and vomiting. will admit to ICU once CT scan is back. Time: 20:18 Reevaluation #2: POC blood sugar 348. Time: 20:52 Consultations Consultation #1: ICU MDM - Nausea/Vomiting/Diarrhea Medical Records Attestation: I reviewed the patient's medical records. Lab Data Attestation: I reviewed the patient's lab results. Result diagrams: 05/06/22 18:17 05/06/22 18:17 Labs: Lab Results 05/06/22 05/06/22 05/06/22 Range/Units 17:43 18:17 18:17 WBC 23.5 H (4.8-10.8) X10*3/uL RBC 5.28 (4.60-5.80) X10*6/uL Hgb 16.1 (14.0-18.0) g/dl Hct 48.8 (42.0-52.0) % MCV 92.4 (80.0-98.0) fL MCH 30.5 (27.0-33.0) pg MCHC 33.0 (31.0-36.0) g/dl RDW 11.9 (11.0-16.0) % Plt Count 497 H (160-400) X10*3/uL MPV 8.5 L (9.4-12.4) fL Immature Gran % (Auto) 2.7 H (0.0-0.4) % Neut % (Auto) 84.1 H (45-73) % Lymph % (Auto) 8.8 L (20-40) % Marion % (Auto) 4.0 (2-11) % Eos % (Auto) 0.0 (0-4) % Baso % (Auto) 0.4 (0-2) % Lymph # (Auto) 2.1 (1.2-4.9) X10*3/uL Marion # (Auto) 0.9 (0.1-1.2) X10*3/uL Eos # (Auto) 0.0 (0.0-0.4) X10*3/uL Baso # (Auto) 0.1 (0.0-0.2) X10*3/uL Abs Immat Gran (auto) 0.63 H (0.00-0.03) X10*3/uL Absolute Neuts (auto) 19.8 H (2.0-8.3) x10*3/uL Absolute Nucleated RBC 0.000 (0.0-0.012) X10*3/uL Nucleated RBC % (auto) 0.0 (0.0-0.2) /100WBC VBG pH (7.32-7.43) VBG pCO2 mmHg VBG pO2 mmHg VBG HCO3 (22-26) mmol/L VBG O2 Saturation % VBG Base Excess mmol/L Sodium 132 L (135-145) mmol/L Potassium 6.6 H* D (3.3-5.1) mmol/L Chloride 99 (96-108) mmol/L Carbon Dioxide 7 L* D (22-29) mmol/L Anion Gap 33 H (12-20) BUN 16 (9-16) mg/dL Creatinine 1.72 H (0.5-1.4) mg/dL Estim Creat Clear Calc 57.0 Estimated GFR 45 POC Glucose 349 H (60-115) mg/dL Random Glucose 447 H* (60-115) mg/dL Calcium 10.0 D (8.4-10.2) mg/dL Total Bilirubin 0.4 (0.0-1.0) mg/dL Direct Bilirubin 0.2 (0.0-0.5) mg/dL AST 22 (5-37) U/L ALT 21 (0-40) U/L Alkaline Phosphatase 165 H D (39-117) U/L Total Protein 9.2 H D (6.5-8.0) g/dL Albumin 5.5 H D (3.5-5.0) g/dL Lipase 10 (8-78) U/L Urine Color Urine Appearance Urine pH (5.0-9.0) Ur Specific [place] (1.005-1.025) Urine Protein (Neg-Trace) mg/dL Urine Glucose (UA) (Negative) mg/dL Urine Ketones (Negative) mg/dL Urine Blood (Negative) Urine Nitrite (Negative) Ur Leukocyte Esterase (Negative) Urine RBC (0-2) /HPF Urine WBC (0-5) /HPF Ur Squamous Epith Cells (0-2) /HPF Urine Bacteria (None Seen) Hyaline Casts (0-2) /LPF Acetone, Qual (Negative) COVID-19 ([facility]ILFRED) (Negative) COVID-19 Clin Com 05/06/22 05/06/22 05/06/22 Range/Units 18:19 18:19 19:40 WBC (4.8-10.8) X10*3/uL RBC (4.60-5.80) X10*6/uL Hgb (14.0-18.0) g/dl Hct (42.0-52.0) % MCV (80.0-98.0) fL MCH (27.0-33.0) pg MCHC (31.0-36.0) g/dl RDW (11.0-16.0) % Plt Count (160-400) X10*3/uL MPV (9.4-12.4) fL Immature Gran % (Auto) (0.0-0.4) % Neut % (Auto) (45-73) % Lymph % (Auto) (20-40) % Marion % (Auto) (2-11) % Eos % (Auto) (0-4) % Baso % (Auto) (0-2) % Lymph # (Auto) (1.2-4.9) X10*3/uL Marion # (Auto) (0.1-1.2) X10*3/uL Eos # (Auto) (0.0-0.4) X10*3/uL Baso # (Auto) (0.0-0.2) X10*3/uL Abs Immat Gran (auto) (0.00-0.03) X10*3/uL Absolute Neuts (auto) (2.0-8.3) x10*3/uL Absolute Nucleated RBC (0.0-0.012) X10*3/uL Nucleated RBC % (auto) (0.0-0.2) /100WBC VBG pH (7.32-7.43) VBG pCO2 mmHg VBG pO2 mmHg VBG HCO3 (22-26) mmol/L VBG O2 Saturation % VBG Base Excess mmol/L Sodium (135-145) mmol/L Potassium (3.3-5.1) mmol/L Chloride (96-108) mmol/L Carbon Dioxide (22-29) mmol/L Anion Gap (12-20) BUN (9-16) mg/dL Creatinine (0.5-1.4) mg/dL Estim Creat Clear Calc Estimated GFR POC Glucose (60-115) mg/dL Random Glucose (60-115) mg/dL Calcium (8.4-10.2) mg/dL Total Bilirubin (0.0-1.0) mg/dL Direct Bilirubin (0.0-0.5) mg/dL AST (5-37) U/L ALT (0-40) U/L Alkaline Phosphatase (39-117) U/L Total Protein (6.5-8.0) g/dL Albumin (3.5-5.0) g/dL Lipase (8-78) U/L Urine Color Yellow Urine Appearance Clear Urine pH 5.5 (5.0-9.0) Ur Specific [place] >= 1.030 H (1.005-1.025) Urine Protein 100 (2+) H (Neg-Trace) mg/dL Urine Glucose (UA) >=1000 H (Negative) mg/dL Urine Ketones >=160 (Negative) mg/dL Urine Blood Small (1+) H (Negative) Urine Nitrite Negative (Negative) Ur Leukocyte Esterase Negative (Negative) Urine RBC 0-2 (0-2) /HPF Urine WBC 0-5 (0-5) /HPF Ur Squamous Epith Cells 0-2 (0-2) /HPF Urine Bacteria None Seen (None Seen) Hyaline Casts 0-2 (0-2) /LPF Acetone, Qual Moderate H (Negative) COVID-19 (WILFRED) Negative (Negative) COVID-19 Clin Com See Note 05/06/22 05/06/22 Range/Units 19:43 20:49 WBC (4.8-10.8) X10*3/uL RBC (4.60-5.80) X10*6/uL Hgb (14.0-18.0) g/dl Hct (42.0-52.0) % MCV (80.0-98.0) fL MCH (27.0-33.0) pg MCHC (31.0-36.0) g/dl RDW (11.0-16.0) % Plt Count (160-400) X10*3/uL MPV (9.4-12.4) fL Immature Gran % (Auto) (0.0-0.4) % Neut % (Auto) (45-73) % Lymph % (Auto) (20-40) % Marion % (Auto) (2-11) % Eos % (Auto) (0-4) % Baso % (Auto) (0-2) % Lymph # (Auto) (1.2-4.9) X10*3/uL Marion # (Auto) (0.1-1.2) X10*3/uL Eos # (Auto) (0.0-0.4) X10*3/uL Baso # (Auto) (0.0-0.2) X10*3/uL Abs Immat Gran (auto) (0.00-0.03) X10*3/uL Absolute Neuts (auto) (2.0-8.3) x10*3/uL Absolute Nucleated RBC (0.0-0.012) X10*3/uL Nucleated RBC % (auto) (0.0-0.2) /100WBC VBG pH 6.98 L* (7.32-7.43) VBG pCO2 25 mmHg VBG pO2 47 mmHg VBG HCO3 6 L (22-26) mmol/L VBG O2 Saturation 68.0 % VBG Base Excess -23.9 mmol/L Sodium (135-145) mmol/L Potassium (3.3-5.1) mmol/L Chloride (96-108) mmol/L Carbon Dioxide (22-29) mmol/L Anion Gap (12-20) BUN (9-16) mg/dL Creatinine (0.5-1.4) mg/dL Estim Creat Clear Calc Estimated GFR POC Glucose 348 H (60-115) mg/dL Random Glucose (60-115) mg/dL Calcium (8.4-10.2) mg/dL Total Bilirubin (0.0-1.0) mg/dL Direct Bilirubin (0.0-0.5) mg/dL AST (5-37) U/L ALT (0-40) U/L Alkaline Phosphatase (39-117) U/L Total Protein (6.5-8.0) g/dL Albumin (3.5-5.0) g/dL Lipase (8-78) U/L Urine Color Urine Appearance Urine pH (5.0-9.0) Ur Specific [place] (1.005-1.025) Urine Protein (Neg-Trace) mg/dL Urine Glucose (UA) (Negative) mg/dL Urine Ketones (Negative) mg/dL Urine Blood (Negative) Urine Nitrite (Negative) Ur Leukocyte Esterase (Negative) Urine RBC (0-2) /HPF Urine WBC (0-5) /HPF Ur Squamous Epith Cells (0-2) /HPF Urine Bacteria (None Seen) Hyaline Casts (0-2) /LPF Acetone, Qual (Negative) COVID-19 ([facility]FRED) (Negative) COVID-19 Clin Com ECG Data Attestation: I personally reviewed and interpreted this ECG as follows: ECG interpretation date: 05/06/22 ECG interpretation time: 20:25 Prior ECG tracings: available for review Interpretation: sinus tachycardia, HR 127, normal KS interval, no ST segment elevations or depressions Critical Care Time Critical Care Time Critical Care Time: Yes Total Critical Care Time: 44 Attestation: I have personally provided critical care time exclusive of time spent on separately billable procedures. Time includes review of lab data, radiology results, discussion with consultants, and monitoring for potential decompensation. Intervention performed as documented. Discharge Plan Discharge Clinical Impression: DKA (diabetic ketoacidosis), BISI (acute kidney injury) Patient Disposition: Admitted As Inpatient
[2022-05-06] MEDS: Insulin Regular/NS 100 UNIT/100 ML PLAST..BAG IVCONT (19:47)
--- NOTE | 2022-05-06 19:48 | PHA.MEDREC ---
med rec complete, no issues Pharmacy Consult ? Medication Reconciliation Pharmacy has completed the medication reconciliation.
[2022-05-06 19:50] LABS: VBG Base Excess -23.9 mmol/L; VBG HCO3 6 mmol/L (22-26); VBG pCO2 25 mmHg; VBG pH 6.98 (7.32-7.43); VBG pO2 47 mmHg
[2022-05-06 20:00] LABS: Acetone, serum QL Moderate (Negative)
[2022-05-06] MEDS: 0.9 % Sodium Chloride 1,000 ML 999 ML IV (20:03)
[2022-05-06] MEDS: 0.9 % Sodium Chloride 1,000 ML 999 ML IVCONT (20:03)
[2022-05-06 20:24] LABS: Alanine Aminotransferase 21 U/L (0-40); Albumin Level 5.5 g/dL (3.5-5.0); Alkaline Phosphatase 165 U/L (39-117); Aspartate Amino Transferase 22 U/L (5-37); Bilirubin Direct 0.2 mg/dL (0.0-0.5); Bilirubin Total 0.4 mg/dL (0.0-1.0); Lipase 10 U/L (8-78); Total Protein 9.2 g/dL (6.5-8.0)
[2022-05-06 20:33] VITALS: BP 168/96; PULSE 122; RESP 21; TEMP 37.1; O2SAT 100
[2022-05-06 20:54] LABS: Glucose, Whole Blood 348 mg/dL (60-115)
--- NOTE | 2022-05-06 20:55 | PC.NURSE ---
pt brought back to room, 2 iv lines placed, reglan given for nausea, insulin reg iv push given, insulin drip started @194 for DKA and blood glucose of 447. poc rechecked after 1 hr of insulin infusion, poc = 348. insulin drip titrated per [facility] insulin drip protocol. pt receiving 2liter bolus fluids. on alarm security or surveillance monitor. resting comfortably. will continue to monitor closely
[2022-05-06 21:44] VITALS: BP 156/97; PULSE 121; RESP 24; O2SAT 99
[2022-05-06 21:53] LABS: Glucose, Whole Blood 243 mg/dL (60-115)
[2022-05-06 22:12] LABS: Influenza A Negative (Negative); Influenza B2 Negative (Negative)
[2022-05-06] MEDS: Lactated Ringers 1,000 ML 200 ML IVCONT (22:13)
[2022-05-06 22:17] LABS: Anion Gap 28 (12-20); Blood Urea Nitrogen 16 mg/dL (9-16); Calcium 8.7 mg/dL (8.4-10.2); Carbon Dioxide 5 mmol/L (22-29); Chloride 107 mmol/L (96-108); Creatinine Clr Calc Pharmacy 65.4; Estimated Glomerular Filt Rate 53; Glucose Random 290 mg/dL (60-115); Potassium 5.3 mmol/L (3.3-5.1); Sodium 135 mmol/L (135-145)
[2022-05-06 23:08] VITALS: O2SAT 99
--- NOTE | 2022-05-06 23:14 | PC.NURSE ---
LR @200ml/hr discontinued per hospitalist orders. hospital instructed this nurse to increase insulin drip rate back to 4ml/hr to correct anion gap and to disregard insulin protocol orders in sep. hospitalist also instructs this nurse to begin D5/LR soln @150ml/hr.
[2022-05-06] MEDS: Dextrose 5 % and Lactated Ring 1,000 ML 150 ML IVCONT (23:24)
[2022-05-06 23:27] LABS: Glucose, Whole Blood 218 mg/dL (60-115)
[2022-05-06] MEDS: Sodium Bicarbonate 8.4% 50 MEQ/50 ML SYRINGE 150 MEQ IVPUSH (23:28)
[2022-05-06] MEDS: Heparin Sodium,Porcine 5,000 UNIT/ML VIAL 5000 UNIT SUBCUT (23:28)
[2022-05-07] VITALS (17 sets, daily range): BP systolic 117–154; BP diastolic 59–94; PULSE 76–119; RESP 14–27; TEMP 36.9–37.4; O2SAT 97–99; BMI 27.9; BMI 28.2
--- NOTE | 2022-05-07 | PM.CCHP ---
History of Present Illness Date of Service: 05/06/22 Attending physician on admission: Louis Khan Chief Complaint: DKA HPI: ?Patient's 35-year-old male with history of type 1 diabetes who has had several episodes of DKA in the past, oral surgery, anxiety, depression, PTSD, pilonidal cyst surgery otherwise in good health.? States that he has been under a lot of stress over the past week and 2-3 days ago he started feeling sick, having generalized abdominal discomfort 5/10, non localized, nonradiating, associated with nausea, vomiting and intermittent diarrhea, polydipsia, polyuria but not able to eat or drink properly since . ? ? Patient states that despite of feeling sick he continued to administer his insulin but he was not getting any better therefore he came to the emergency room.? He was slightly tachycardic otherwise normotensive, his workup revealed white count 23.5, H&H of 16 and 48 respectively, platelets 497, sodium 132, potassium 6.6, chloride 99, carbon dioxide 7, anion gap 33, creatinine 1.72 (baseline 1.0), blood glucose 447, LFTs within normal limits, lipase 10.? Albumin 5.5. ?He did have moderate acetone in the urine.? U tox not performed.? His urinalysis did reveal glucosuria, proteinuria but otherwise negative.? COVID negative. ?CT abdomen pelvis showed limited assessment for wall thickening of the colon due to luminal collapse.? Mild colitis would be difficult to entirely exclude in the proper clinical setting.? Otherwise no acute findings identified. ? Patient was treated with normal saline initially then switched to LR, given 5 units of insulin IV followed by insulin drip of 4 units/hour. ?His blood gas showed significant metabolic acidosis.? Repeated chemistry did show decrease of the potassium to 5.3, decrease of creatinine to 1.5, blood glucose 290.? Currently patient states that he feels much better although he still little shaky.? Patient attributes all his symptoms to significant stress due to work and personal issues. ? ? Review of systems: As above, otherwise the patient denies any prior history of strokes, cold intolerance, migraine headaches, head trauma, no eyes, ears or nose problems, no problems swallowing or with phonation, no thyroid disease, denies any history of chest pain, palpitations, coronary disease, admits to intermittent cough without any fever, no sputum production, pneumonia, bronchitis, COPD or emphysema, no abdominal surgeries, melena, hematochezia, hematemesis, hematuria, kidney stones, liver problems, immunocompromise state of any kind, no history of DVT or PE, leg edema, fractures or extremity surgeries all other review of systems were reviewed and they were all negative. ? Past Medical History:? As above ? Past Surgical History:? As above ? Family history:? Noncontributory ? Social History:? Lives at home with his , does have a job.? Denies alcohol or tobacco.? Smokes marijuana recreationally. ? CODE STATUS: FULL CODE ? Allergies: NKDA ? Home Medications: See Med Rec ? PHYSICAL EXAM: VS: ?164/84, 67, 21, 100% room air, 98.4. General:? Alert oriented x3 no acute distress.? Speaking full sentences.? Speech is well articulated, thought process is coherent.? Following all commands.? Slightly shaky Skin:? Intact, no lesions, edema, erythema, clubbing or cyanosis.? No ulcers. HEENT:? Head is normocephalic, atraumatic, pupils equal round reactive to light accommodation bilaterally.? Extraocular movements appear intact.? Buccal mucosa is dry, Neck is supple without lymphadenopathy. Cardiac:? Clear S1-S2, no murmurs rubs or gallops. Pulmonary:? Clear to auscultation, no wheezes, rales or rhonchi. Abdomen:? Protuberant, positive bowel sounds in all 4 quadrants.? Soft, nontender, no rebound or guarding.? Musculoskeletal:? Moving all 4 extremities upon request a major joints, there is no crepitus or tenderness.? The strength is 5/5 bilaterally and throughout all 4 extremities.? There is no leg edema , no calf tenderness , no leg asymmetry.? Gait not assessed at this point. Neurologic:? As above, cranial nerves 2-12 are grossly intact.? No focal deficits noted. Motor strength as above.? Vascular:? 2+ pulses upper and lower extremities distally. ? SIGNIFICANT LABORATORY DATA:? As above ? REVIEW OF IMAGES: ?As above ? EKG REVIEW:? Sinus tachycardia ventricular rate 127 beats per minute.? No ST elevations, no ST depressions.? QTC 310, no comparison. ? ASSESSMENT : 1. Acute DKA perhaps induced by stress 2. Acute kidney injury due to volume depletion 3. Clinical dehydration due to 1. 4. Metabolic acidosis 5. Reactive tachycardia 6. Reactive leukocytosis without evidence of infection, certainly not sepsis. 7. Pseudo hyponatremia and hyperkalemia due to 1. ? PLAN OF CARE: Patient will be admitted to the ICU, monitor I and O's closely, vital signs, continue with IV fluids which given the sugar is now less than 250 will be switched to LR/T5, will continue to check the blood sugars every 1 hour and chemistries every 4 hours, continue with insulin drip, antiemetics, recheck laboratories in the morning as well.? Utox. Once anion gap closes, we will discontinue the insulin drip and place the patient on his normal home regimen. Patient's borderline hypertensive, I wonder if he should be started on an ANJEL-inhibitor to prevent diabetic nephropathy. ? GI PROPHYLAXIS: ?Oral PPI DVT PROPHYLAXIS:? Heparin subQ b.i.d. ? Critical care time used for critical evaluation of this patient, diagnosis, treatment and coordination of care, review her records and documentation TOTAL CRITICAL CARE TIME??? MIN . discussion and coordination with consultants, completely separate from any procedures performed. Patient's care was discussed in detail with Dr. Khan.? He is aware of all the above as well as the plan of care for this patient. [facility] Past Medical History Medical History Depression Diabetes type I Social History Social History Household Members: Spouse Housing: House Do you presently have visiting nurse or other home services: No Patient Tobacco Use Status: Former Tobacco user Tobacco use type: Cigarette Years Smoked: 2 Second Hand Smoke Exposure: Yes (MINIMAL) Substance Use Type: Marijuana Advance Directives: No Advance Directives Information Provided: No service: No Current occupational status: employed Meds Allergies Allergy/AdvReac Type Severity Reaction Status Date / Time Penicillins Allergy Hives Verified 12/28/20 06:23 Active Medications: Current Medications Dextrose (Dextrose 50 % 25 Gm/50 Ml Syringe) 25 gm IVPUSH Q30M PRN PRN Reason: BG < 70 Heparin Sodium (Porcine) (Heparin Sodium,Porcine 5,000 Unit/Ml Vial) 5,000 unit SUBCUT Q12H [facility] Last Admin: 05/06/22 23:28 Dose: 5,000 unit Insulin Human Regular (Myxredlin) 100 unit in 100 mls @ 4 mls/hr IVCONT .Q24H [facility]; Protocol Last Titration: 05/06/22 23:22 Dose: 4 unit/hr, 4 mls/hr Dextrose/Lactated Ringer's (D5lr) 1,000 mls @ 150 mls/hr IVCONT .Q6H40M [facility] Last Admin: 05/06/22 23:24 Dose: 150 mls/hr Dextrose/Lactated Ringer's (D5lr) 1,000 mls @ 150 mls/hr IVCONT .Q6H40M [facility] Last Admin: 05/06/22 23:38 Dose: Not Given Omeprazole (Omeprazole 20 Mg/10 Ml Susp.Recon) 40 mg PO DAILY@0630 [facility] Pharmacy Consult (Consult Rx Perform Med Rec) 1 each MISCELLANE ONCE PRN PRN Reason: Consult order Home Medications Medication Instructions Recorded Confirmed Last Taken Type insulin lispro 100 unit/mL 10 - 15 unit subcut TIDWMEAL 12/28/20 05/06/22 Unknown History subcutaneous pen (Humalog KwikPen (U-100) Insulin) sertraline 100 mg tablet 2 tab PO DAILY 12/28/20 05/06/22 Unknown History insulin glargine 100 unit/mL (3 45 unit subcut BEDTIME 05/06/22 05/06/22 05/05/22 History mL) subcutaneous pen (Lantus Solostar U-100 Insulin) melatonin 5 mg tablet 5 mg PO BEDTIME PRN Sleep 05/06/22 05/06/22 Unknown History Physical Exam Vital Signs: Vital Signs: Last Vital Signs Temp 98.7 F 05/06/22 20:33 Pulse 121 H 05/06/22 21:44 Resp 24 H 05/06/22 21:44 BP 156/97 H 05/06/22 21:44 Pulse Ox 99 05/06/22 21:44 O2 Del Method 05/06/22 21:44 BMI result Body Mass Index 29.1 Results Labs CBC and Chem 7: 05/06/22 18:17 05/06/22 21:38 Labs: Laboratory Results - last 24 hr 05/06/22 05/06/22 05/06/22 17:43 18:17 18:17 MCV 92.4 MCH 30.5 MCHC 33.0 RDW 11.9 Plt Count 497 H MPV 8.5 L Immature Gran % (Auto) 2.7 H Neut % (Auto) 84.1 H Lymph % (Auto) 8.8 L [place] % (Auto) 4.0 Eos % (Auto) 0.0 Baso % (Auto) 0.4 Lymph # (Auto) 2.1 [place] # (Auto) 0.9 Eos # (Auto) 0.0 Baso # (Auto) 0.1 Abs Immat Gran (auto) 0.63 H Absolute Neuts (auto) 19.8 H Absolute Nucleated RBC 0.000 Nucleated RBC % (auto) 0.0 VBG pH VBG pCO2 VBG pO2 VBG HCO3 VBG O2 Saturation VBG Base Excess Anion Gap 33 H Estim Creat Clear Calc 57.0 Estimated GFR 45 POC Glucose 349 H Random Glucose 447 H* Calcium 10.0 D Total Bilirubin 0.4 Direct Bilirubin 0.2 AST 22 ALT 21 Alkaline Phosphatase 165 H D Total Protein 9.2 H D Albumin 5.5 H D Lipase 10 Urine Color Urine Appearance Urine pH Ur Specific [place] Urine Protein Urine Glucose (UA) Urine Ketones Urine Blood Urine Nitrite Ur Leukocyte Esterase Urine RBC Urine WBC Ur Squamous Epith Cells Urine Bacteria Hyaline Casts Acetone, Qual COVID-19 ([facility]ILFRED) COVID-19 Clin Com Influenza Type A (FABIO) Influenza Type B (FABIO) Influenza A & B Note 05/06/22 05/06/22 05/06/22 18:19 18:19 19:40 MCV MCH MCHC RDW Plt Count MPV Immature Gran % (Auto) Neut % (Auto) Lymph % (Auto) [place] % (Auto) Eos % (Auto) Baso % (Auto) Lymph # (Auto) [place] # (Auto) Eos # (Auto) Baso # (Auto) Abs Immat Gran (auto) Absolute Neuts (auto) Absolute Nucleated RBC Nucleated RBC % (auto) VBG pH VBG pCO2 VBG pO2 VBG HCO3 VBG O2 Saturation VBG Base Excess Anion Gap Estim Creat Clear Calc Estimated GFR POC Glucose Random Glucose Calcium Total Bilirubin Direct Bilirubin AST ALT Alkaline Phosphatase Total Protein Albumin Lipase Urine Color Yellow Urine Appearance Clear Urine pH 5.5 Ur Specific [place] >= 1.030 H Urine Protein 100 (2+) H Urine Glucose (UA) >=1000 H Urine Ketones >=160 Urine Blood Small (1+) H Urine Nitrite Negative Ur Leukocyte Esterase Negative Urine RBC 0-2 Urine WBC 0-5 Ur Squamous Epith Cells 0-2 Urine Bacteria None Seen Hyaline Casts 0-2 Acetone, Qual Moderate H COVID-19 (WILFRED) Negative COVID-19 Clin Com See Note Influenza Type A (FABIO) Influenza Type B (FABIO) Influenza A & B Note 05/06/22 05/06/22 05/06/22 19:43 20:49 21:38 MCV MCH MCHC RDW Plt Count MPV Immature Gran % (Auto) Neut % (Auto) Lymph % (Auto) [place] % (Auto) Eos % (Auto) Baso % (Auto) Lymph # (Auto) [place] # (Auto) Eos # (Auto) Baso # (Auto) Abs Immat Gran (auto) Absolute Neuts (auto) Absolute Nucleated RBC Nucleated RBC % (auto) VBG pH 6.98 L* VBG pCO2 25 VBG pO2 47 VBG HCO3 6 L VBG O2 Saturation 68.0 VBG Base Excess -23.9 Anion Gap Estim Creat Clear Calc Estimated GFR POC Glucose 348 H Random Glucose Calcium Total Bilirubin Direct Bilirubin AST ALT Alkaline Phosphatase Total Protein Albumin Lipase Urine Color Urine Appearance Urine pH Ur Specific [place] Urine Protein Urine Glucose (UA) Urine Ketones Urine Blood Urine Nitrite Ur Leukocyte Esterase Urine RBC Urine WBC Ur Squamous Epith Cells Urine Bacteria Hyaline Casts Acetone, Qual COVID-19 ([facility]ILFRED) COVID-19 Clin Com Influenza Type A (FABIO) Negative Influenza Type B (FABIO) Negative Influenza A & B Note See Note 05/06/22 05/06/22 05/06/22 21:38 21:50 23:23 MCV MCH MCHC RDW Plt Count MPV Immature Gran % (Auto) Neut % (Auto) Lymph % (Auto) [place] % (Auto) Eos % (Auto) Baso % (Auto) Lymph # (Auto) [place] # (Auto) Eos # (Auto) Baso # (Auto) Abs Immat Gran (auto) Absolute Neuts (auto) Absolute Nucleated RBC Nucleated RBC % (auto) VBG pH VBG pCO2 VBG pO2 VBG HCO3 VBG O2 Saturation VBG Base Excess Anion Gap 28 H Estim Creat Clear Calc 65.4 Estimated GFR 53 POC Glucose 243 H 218 H Random Glucose 290 H D Calcium 8.7 D Total Bilirubin Direct Bilirubin AST ALT Alkaline Phosphatase Total Protein Albumin Lipase Urine Color Urine Appearance Urine pH Ur Specific [place] Urine Protein Urine Glucose (UA) Urine Ketones Urine Blood Urine Nitrite Ur Leukocyte Esterase Urine RBC Urine WBC Ur Squamous Epith Cells Urine Bacteria Hyaline Casts Acetone, Qual COVID-19 ([facility]ILFRED) COVID-19 Clin Com Influenza Type A (FABIO) Influenza Type B (FABIO) Influenza A & B Note Imaging Radiologist's Impressions: Impressions Chest X-Ray 05/06/22 19:53 IMPRESSION: No acute cardiopulmonary findings. Abdomen/Pelvis CT 05/06/22 22:32 IMPRESSION: Limited assessment for wall thickening in the colon due to luminal collapse; therefore a mild colitis would be difficult to entirely exclude in the proper clinical setting. Otherwise, no acute findings identified.
[2022-05-07 00:27] LABS: Glucose, Whole Blood 212 mg/dL (60-115)
[2022-05-07 01:03] LABS: Glucose, Whole Blood 194 mg/dL (60-115)
[2022-05-07 01:03] LABS: VBG Base Excess -18.4 mmol/L; VBG HCO3 7 mmol/L (22-26); VBG pCO2 17 mmHg; VBG pH 7.19 (7.32-7.43); VBG pO2 46 mmHg
[2022-05-07 01:34] LABS: Anion Gap 29 (12-20); Blood Urea Nitrogen 14 mg/dL (9-16); Calcium 8.6 mg/dL (8.4-10.2); Carbon Dioxide 5 mmol/L (22-29); Chloride 107 mmol/L (96-108); Creatinine Clr Calc Pharmacy 73.5; Estimated Glomerular Filt Rate > 60; Glucose Random 205 mg/dL (60-115); Potassium 4.7 mmol/L (3.3-5.1); Sodium 136 mmol/L (135-145)
[2022-05-07] MEDS: Sodium Bicarbonate 8.4% 50 MEQ/50 ML SYRINGE 150 MEQ IVPUSH (01:34)
[2022-05-07] MEDS: ondansetron HCL 4 MG/2 ML VIAL IVPUSH (01:45)
[2022-05-07] MEDS: Dextrose 5 % and Lactated Ring 1,000 ML 150 ML IVCONT ×2 (01:59→15:11)
--- NOTE | 2022-05-07 02:10 | PC.NURSE ---
ADMIT TO 259-1 FROM ER DEPT...ALERT..ORIENTED X3...SKIN WARM/DRY....D5LR 150 CC/HR AMD INSULIN DRIP 4 UNITS/HR AT ADMISSION...S.TACH HR 100'S-110'S...VOIDED CLEAR YELLOW URINE...REPEAT LABS REVIEWED BY ICU PA...NaHCO3 150MEQ IV GIVEN...NAUSEOUS AND VOMITED GREEN EMESIS...ZOFRAN GIVEN PER SEP..CURRENTLY RESTFUL...PER PA FOR AM LABS PREVIOUSL ORDERED AND MAINTAIN INSULIN DRIP OVERNIGHT
[2022-05-07 02:11] LABS: Glucose, Whole Blood 180 mg/dL (60-115)
[2022-05-07 03:14] LABS: Glucose, Whole Blood 176 mg/dL (60-115)
[2022-05-07 04:05] LABS: Venous Blood Gas Refer to POC result
[2022-05-07 04:23] LABS: Glucose, Whole Blood 158 mg/dL (60-115)
[2022-05-07 05:24] LABS: Glucose, Whole Blood 173 mg/dL (60-115)
[2022-05-07 05:38] LABS: MANUAL DIFF FLAG NO
[2022-05-07 05:43] LABS: Basophils Percent Auto 0.1 % (0-2); Hematocrit 39.3 % (42.0-52.0); Hemoglobin 13.4 g/dl (14.0-18.0); Imm Gran Abs Auto 0.21 X10*3/uL (0.00-0.03); Imm Gran Pct Auto 1.2 % (0.0-0.4); Lymphocytes Absolute Auto 2.2 X10*3/uL (1.2-4.9); Mean Corpuscular HGB Conc 34.1 g/dl (31.0-36.0); Mean Corpuscular Hemoglobin 29.8 pg (27.0-33.0); Mean Corpuscular Volume 87.5 fL (80.0-98.0); Mean Platelet Volume 8.4 fL (9.4-12.4); Monocytes Absolute Auto 1.3 X10*3/uL (0.1-1.2); Monocytes Percent Auto 7.6 % (2-11); Neutrophils Absolute Auto 13.4 x10*3/uL (2.0-8.3); Neutrophils Percent Auto 78.1 % (45-73); Platelet Count 411 X10*3/uL (160-400); Red Blood Count 4.49 X10*6/uL (4.60-5.80); Red Cell Distribution Width 11.7 % (11.0-16.0); White Blood Count 17.1 X10*3/uL (4.8-10.8)
[2022-05-07 05:46] LABS: VBG Base Excess -11.6 mmol/L; VBG HCO3 12 mmol/L (22-26); VBG pCO2 22 mmHg; VBG pH 7.33 (7.32-7.43); VBG pO2 52 mmHg
[2022-05-07 06:02] LABS: Amphetamine Screen Urine Not Detected (Not Detect); Barbiturates, Urine Not Detected (Not Detect); Benzodiazepines Screen Urine Not Detected (Not Detect); Cannabinoid Screen Urine POSITIVE (Not Detect); Cocaine Screen Urine Not Detected (Not Detect); Fentanyl, urine Not Detected (Not Detect); Opiate Screen Urine Not Detected (Not Detect); Phencyclidine Screen Urine Not Detected (Not Detect)
[2022-05-07 06:05] LABS: Alanine Aminotransferase 13 U/L (0-40); Albumin Level 4.2 g/dL (3.5-5.0); Alkaline Phosphatase 120 U/L (39-117); Anion Gap 22 (12-20); Aspartate Amino Transferase 14 U/L (5-37); Bilirubin Total 0.5 mg/dL (0.0-1.0); Blood Urea Nitrogen 10 mg/dL (9-16); Calcium 8.7 mg/dL (8.4-10.2); Carbon Dioxide 14 mmol/L (22-29); Chloride 107 mmol/L (96-108); Creatinine Clr Calc Pharmacy 84.1; Estimated Glomerular Filt Rate > 60; Glucose Random 177 mg/dL (60-115); Phosphorus 2.1 mg/dL (2.7-4.5); Sodium 139 mmol/L (135-145); Total Protein 6.9 g/dL (6.5-8.0)
[2022-05-07 06:10] LABS: Venous Blood Gas Refer to POC result
[2022-05-07 06:22] LABS: Glucose, Whole Blood 178 mg/dL (60-115)
[2022-05-07 07:16] LABS: Glucose, Whole Blood 148 mg/dL (60-115)
[2022-05-07 07:25] LABS: Estimated Average Glucose 275 mg/dL; Hemoglobin A1c % 11.2 %
--- NOTE | 2022-05-07 08:06 | PC.NURSE ---
pt with POC 149. Will call MD to switch to sq insulin
--- NOTE | 2022-05-07 08:35 | PC.NURSE ---
per MD Khan, will d/c insulin drip now
--- NOTE | 2022-05-07 09:04 | PM.CCPN ---
Subjective Subjective Date of Service: 05/07/22 Interval History: Mr. Quiroz was admitted to the ICU last night with DKA. The patient is a 36 y/o male with a PMH of T1D diagnosed at the age of 15.? Otherwise in good health.? Lives with his , no kids, has a good job.? Presented to the ED ambulatory yesterday evening with nausea, vomiting, high blood sugar, dry mouth and body aches. The patient is on 45 units of Lantus at night and uses a sliding scale of insulin.? He is very fastidious about his glucose control. ?He denies any s/sx of infection, but has had tremendous social and financial stress recently and thinks that is what put him into DKA. ?He reports his last A1C was 10, and his last episode of DKA was in 2020. ?He follows with Endocrine at [facility] and last saw them after his DKA last year. Workup revealed white count 23.5, Hgb 16, sodium 132, potassium 6.6, chloride 99, carbon dioxide 7, anion gap 33, creatinine 1.72 (baseline 1.0), blood glucose 447, LFTs within normal limits, lipase 10.? Albumin 5.5, moderate acetone.? COVID negative.? CT abdomen showed ?limited assessment for wall thickening of the colon due to luminal collapse.? Mild colitis would be difficult to entirely exclude in the proper clinical setting.?? Otherwise no acute findings identified. The patient was treated in the usual fashion and admitted to the ICU where he continued on volume resuscitation and an insulin infusion.? By early this morning, his poc?s were below 200 and he was switched to D5 LR.? The insulin infusion was turned off about 09:00.? This morning, serum bicarb is still 14, anion gap down to 22, BUN and creatinine down to 10/1.1, glucose 177, potassium 4.0, phosphorus 2.1 magnesium 1.8. On exam, the patient looks entirely well.? Breathing easy on room air was sat 98%.? Heart rate about 90, blood pressure 118/78.? He is afebrile.? No jugular venous distention with head of bed at 30 degrees.? Chest clear to auscultation.? Abdomen is fully benign. ?He is no peripheral edema. IMPRESSION:? 1. DKA, with poorly controlled diabetes, as demonstrated by his hemoglobin A1c.? I switched him over to subQ lispro.? Checking his sugars every 2 hours and giving him lispro with every check (SQ insulin management of DKA).? Will recheck chemistries at 11am and 6pm.? Replete potassium and phosphate. 2. Hypovolemia.? Continue volume resuscitation 3. BISI.? 2? hypovolemia.? Resolving with treatment. Stable for transfer to Med surg.? Will sign out to hospitalists. Critical Care Time (minutes): 0 Physical Exam Vital Signs: Vital Signs: Last Vital Signs Temp 98.9 F 05/07/22 08:00 Pulse 92 05/07/22 08:00 Resp 14 05/07/22 08:00 BP 118/78 05/07/22 08:00 Pulse Ox 98 05/07/22 08:00 O2 Del Method 05/07/22 08:00 BMI result Body Mass Index 28.2 Objective Data Labs CBC & Chem 7: 05/07/22 05:15 05/07/22 11:03 Labs: Laboratory Results - last 24 hr 05/06/22 05/06/22 05/06/22 17:43 18:17 18:17 WBC 23.5 H RBC 5.28 Hgb 16.1 Hct 48.8 MCV 92.4 MCH 30.5 MCHC 33.0 RDW 11.9 Plt Count 497 H MPV 8.5 L Immature Gran % (Auto) 2.7 H Neut % (Auto) 84.1 H Lymph % (Auto) 8.8 L Miller % (Auto) 4.0 Eos % (Auto) 0.0 Baso % (Auto) 0.4 Lymph # (Auto) 2.1 Miller # (Auto) 0.9 Eos # (Auto) 0.0 Baso # (Auto) 0.1 Abs Immat Gran (auto) 0.63 H Absolute Neuts (auto) 19.8 H Absolute Nucleated RBC 0.000 Nucleated RBC % (auto) 0.0 VBG pH VBG pCO2 VBG pO2 VBG HCO3 VBG O2 Saturation VBG Base Excess Sodium 132 L Potassium 6.6 H* D Chloride 99 Carbon Dioxide 7 L* D Anion Gap 33 H BUN 16 Creatinine 1.72 H Estim Creat Clear Calc 57.0 Estimated GFR 45 POC Glucose 349 H Random Glucose 447 H* Estimat Average Glucose Hemoglobin A1c % Calcium 10.0 D Phosphorus Total Bilirubin 0.4 Direct Bilirubin 0.2 AST 22 ALT 21 Alkaline Phosphatase 165 H D Total Protein 9.2 H D Albumin 5.5 H D Lipase 10 Urine Color Urine Appearance Urine pH Ur Specific [place] Urine Protein Urine Glucose (UA) Urine Ketones Urine Blood Urine Nitrite Ur Leukocyte Esterase Urine RBC Urine WBC Ur Squamous Epith Cells Urine Bacteria Hyaline Casts Urine Opiates Screen Urine Fentanyl Screen Ur Barbiturates Screen Ur Phencyclidine Scrn Ur Amphetamines Screen U Benzodiazepines Scrn Urine Cocaine Screen U Marijuana (THC) Screen Acetone, Qual COVID-19 (WILFRED) COVID-19 Clin Com Influenza Type A (AFBIO) Influenza Type B (FABIO) Influenza A & B Note 05/06/22 05/06/22 05/06/22 18:17 18:19 18:19 WBC RBC Hgb Hct MCV MCH MCHC RDW Plt Count MPV Immature Gran % (Auto) Neut % (Auto) Lymph % (Auto) Miller % (Auto) Eos % (Auto) Baso % (Auto) Lymph # (Auto) Miller # (Auto) Eos # (Auto) Baso # (Auto) Abs Immat Gran (auto) Absolute Neuts (auto) Absolute Nucleated RBC Nucleated RBC % (auto) VBG pH VBG pCO2 VBG pO2 VBG HCO3 VBG O2 Saturation VBG Base Excess Sodium Potassium Chloride Carbon Dioxide Anion Gap BUN Creatinine Estim Creat Clear Calc Estimated GFR POC Glucose Random Glucose Estimat Average Glucose 275 Hemoglobin A1c % 11.2 Calcium Phosphorus Total Bilirubin Direct Bilirubin AST ALT Alkaline Phosphatase Total Protein Albumin Lipase Urine Color Yellow Urine Appearance Clear Urine pH 5.5 Ur Specific [place] >= 1.030 H Urine Protein 100 (2+) H Urine Glucose (UA) >=1000 H Urine Ketones >=160 Urine Blood Small (1+) H Urine Nitrite Negative Ur Leukocyte Esterase Negative Urine RBC 0-2 Urine WBC 0-5 Ur Squamous Epith Cells 0-2 Urine Bacteria None Seen Hyaline Casts 0-2 Urine Opiates Screen Urine Fentanyl Screen Ur Barbiturates Screen Ur Phencyclidine Scrn Ur Amphetamines Screen U Benzodiazepines Scrn Urine Cocaine Screen U Marijuana (THC) Screen Acetone, Qual COVID-19 (WILFRED) Negative COVID-19 Clin Com See Note Influenza Type A (FABIO) Influenza Type B (FABIO) Influenza A & B Note 05/06/22 05/06/22 05/06/22 19:40 19:43 20:49 WBC RBC Hgb Hct MCV MCH MCHC RDW Plt Count MPV Immature Gran % (Auto) Neut % (Auto) Lymph % (Auto) Miller % (Auto) Eos % (Auto) Baso % (Auto) Lymph # (Auto) Miller # (Auto) Eos # (Auto) Baso # (Auto) Abs Immat Gran (auto) Absolute Neuts (auto) Absolute Nucleated RBC Nucleated RBC % (auto) VBG pH 6.98 L* VBG pCO2 25 VBG pO2 47 VBG HCO3 6 L VBG O2 Saturation 68.0 VBG Base Excess -23.9 Sodium Potassium Chloride Carbon Dioxide Anion Gap BUN Creatinine Estim Creat Clear Calc Estimated GFR POC Glucose 348 H Random Glucose Estimat Average Glucose Hemoglobin A1c % Calcium Phosphorus Total Bilirubin Direct Bilirubin AST ALT Alkaline Phosphatase Total Protein Albumin Lipase Urine Color Urine Appearance Urine pH Ur Specific [place] Urine Protein Urine Glucose (UA) Urine Ketones Urine Blood Urine Nitrite Ur Leukocyte Esterase Urine RBC Urine WBC Ur Squamous Epith Cells Urine Bacteria Hyaline Casts Urine Opiates Screen Urine Fentanyl Screen Ur Barbiturates Screen Ur Phencyclidine Scrn Ur Amphetamines Screen U Benzodiazepines Scrn Urine Cocaine Screen U Marijuana (THC) Screen Acetone, Qual Moderate H COVID-19 (WILFRED) COVID-19 Clin Com Influenza Type A (FABIO) Influenza Type B (FABIO) Influenza A & B Note 05/06/22 05/06/22 05/06/22 21:38 21:38 21:50 WBC RBC Hgb Hct MCV MCH MCHC RDW Plt Count MPV Immature Gran % (Auto) Neut % (Auto) Lymph % (Auto) Miller % (Auto) Eos % (Auto) Baso % (Auto) Lymph # (Auto) Miller # (Auto) Eos # (Auto) Baso # (Auto) Abs Immat Gran (auto) Absolute Neuts (auto) Absolute Nucleated RBC Nucleated RBC % (auto) VBG pH VBG pCO2 VBG pO2 VBG HCO3 VBG O2 Saturation VBG Base Excess Sodium 135 Potassium 5.3 H Chloride 107 Carbon Dioxide 5 L* D Anion Gap 28 H BUN 16 Creatinine 1.50 H Estim Creat Clear Calc 65.4 Estimated GFR 53 POC Glucose 243 H Random Glucose 290 H D Estimat Average Glucose Hemoglobin A1c % Calcium 8.7 D Phosphorus Total Bilirubin Direct Bilirubin AST ALT Alkaline Phosphatase Total Protein Albumin Lipase Urine Color Urine Appearance Urine pH Ur Specific [place] Urine Protein Urine Glucose (UA) Urine Ketones Urine Blood Urine Nitrite Ur Leukocyte Esterase Urine RBC Urine WBC Ur Squamous Epith Cells Urine Bacteria Hyaline Casts Urine Opiates Screen Urine Fentanyl Screen Ur Barbiturates Screen Ur Phencyclidine Scrn Ur Amphetamines Screen U Benzodiazepines Scrn Urine Cocaine Screen U Marijuana (THC) Screen Acetone, Qual COVID-19 (WILFRED) COVID-19 Clin Com Influenza Type A (FABIO) Negative Influenza Type B (FABIO) Negative Influenza A & B Note See Note 05/06/22 05/07/22 05/07/22 23:23 00:23 00:50 WBC RBC Hgb Hct MCV MCH MCHC RDW Plt Count MPV Immature Gran % (Auto) Neut % (Auto) Lymph % (Auto) Miller % (Auto) Eos % (Auto) Baso % (Auto) Lymph # (Auto) Miller # (Auto) Eos # (Auto) Baso # (Auto) Abs Immat Gran (auto) Absolute Neuts (auto) Absolute Nucleated RBC Nucleated RBC % (auto) VBG pH VBG pCO2 VBG pO2 VBG HCO3 VBG O2 Saturation VBG Base Excess Sodium 136 Potassium 4.7 Chloride 107 Carbon Dioxide 5 L* Anion Gap 29 H BUN 14 Creatinine 1.31 Estim Creat Clear Calc 73.5 Estimated GFR > 60 POC Glucose 218 H 212 H Random Glucose 205 H Estimat Average Glucose Hemoglobin A1c % Calcium 8.6 Phosphorus Total Bilirubin Direct Bilirubin AST ALT Alkaline Phosphatase Total Protein Albumin Lipase Urine Color Urine Appearance Urine pH Ur Specific [place] Urine Protein Urine Glucose (UA) Urine Ketones Urine Blood Urine Nitrite Ur Leukocyte Esterase Urine RBC Urine WBC Ur Squamous Epith Cells Urine Bacteria Hyaline Casts Urine Opiates Screen Urine Fentanyl Screen Ur Barbiturates Screen Ur Phencyclidine Scrn Ur Amphetamines Screen U Benzodiazepines Scrn Urine Cocaine Screen U Marijuana (THC) Screen Acetone, Qual COVID-19 (WILFRED) COVID-19 Clin Com Influenza Type A (FABIO) Influenza Type B (FABIO) Influenza A & B Note 05/07/22 05/07/22 05/07/22 00:54 01:00 02:08 WBC RBC Hgb Hct MCV MCH MCHC RDW Plt Count MPV Immature Gran % (Auto) Neut % (Auto) Lymph % (Auto) Miller % (Auto) Eos % (Auto) Baso % (Auto) Lymph # (Auto) Miller # (Auto) Eos # (Auto) Baso # (Auto) Abs Immat Gran (auto) Absolute Neuts (auto) Absolute Nucleated RBC Nucleated RBC % (auto) VBG pH 7.19 L* VBG pCO2 17 VBG pO2 46 VBG HCO3 7 L VBG O2 Saturation 79.0 VBG Base Excess -18.4 Sodium Potassium Chloride Carbon Dioxide Anion Gap BUN Creatinine Estim Creat Clear Calc Estimated GFR POC Glucose 194 H 180 H Random Glucose Estimat Average Glucose Hemoglobin A1c % Calcium Phosphorus Total Bilirubin Direct Bilirubin AST ALT Alkaline Phosphatase Total Protein Albumin Lipase Urine Color Urine Appearance Urine pH Ur Specific [place] Urine Protein Urine Glucose (UA) Urine Ketones Urine Blood Urine Nitrite Ur Leukocyte Esterase Urine RBC Urine WBC Ur Squamous Epith Cells Urine Bacteria Hyaline Casts Urine Opiates Screen Urine Fentanyl Screen Ur Barbiturates Screen Ur Phencyclidine Scrn Ur Amphetamines Screen U Benzodiazepines Scrn Urine Cocaine Screen U Marijuana (THC) Screen Acetone, Qual COVID-19 (WILFRED) COVID-19 Clin Com Influenza Type A (FABIO) Influenza Type B (FABIO) Influenza A & B Note 05/07/22 05/07/22 05/07/22 03:08 04:18 05:03 WBC RBC Hgb Hct MCV MCH MCHC RDW Plt Count MPV Immature Gran % (Auto) Neut % (Auto) Lymph % (Auto) Miller % (Auto) Eos % (Auto) Baso % (Auto) Lymph # (Auto) Miller # (Auto) Eos # (Auto) Baso # (Auto) Abs Immat Gran (auto) Absolute Neuts (auto) Absolute Nucleated RBC Nucleated RBC % (auto) VBG pH VBG pCO2 VBG pO2 VBG HCO3 VBG O2 Saturation VBG Base Excess Sodium Potassium Chloride Carbon Dioxide Anion Gap BUN Creatinine Estim Creat Clear Calc Estimated GFR POC Glucose 176 H 158 H 173 H Random Glucose Estimat Average Glucose Hemoglobin A1c % Calcium Phosphorus Total Bilirubin Direct Bilirubin AST ALT Alkaline Phosphatase Total Protein Albumin Lipase Urine Color Urine Appearance Urine pH Ur Specific [place] Urine Protein Urine Glucose (UA) Urine Ketones Urine Blood Urine Nitrite Ur Leukocyte Esterase Urine RBC Urine WBC Ur Squamous Epith Cells Urine Bacteria Hyaline Casts Urine Opiates Screen Urine Fentanyl Screen Ur Barbiturates Screen Ur Phencyclidine Scrn Ur Amphetamines Screen U Benzodiazepines Scrn Urine Cocaine Screen U Marijuana (THC) Screen Acetone, Qual COVID-19 (WILFRED) COVID-19 Clin Com Influenza Type A (FABIO) Influenza Type B (FABIO) Influenza A & B Note 05/07/22 05/07/22 05/07/22 05:15 05:15 05:15 WBC 17.1 H RBC 4.49 L Hgb 13.4 L Hct 39.3 L MCV 87.5 MCH 29.8 MCHC 34.1 RDW 11.7 Plt Count 411 H MPV 8.4 L Immature Gran % (Auto) 1.2 H Neut % (Auto) 78.1 H Lymph % (Auto) 13.0 L Miller % (Auto) 7.6 Eos % (Auto) 0.0 Baso % (Auto) 0.1 Lymph # (Auto) 2.2 Miller # (Auto) 1.3 H Eos # (Auto) 0.0 Baso # (Auto) 0.0 Abs Immat Gran (auto) 0.21 H Absolute Neuts (auto) 13.4 H Absolute Nucleated RBC 0.000 Nucleated RBC % (auto) 0.0 VBG pH VBG pCO2 VBG pO2 VBG HCO3 VBG O2 Saturation VBG Base Excess Sodium 139 Potassium 4.0 Chloride 107 Carbon Dioxide 14 L Anion Gap 22 H BUN 10 Creatinine 1.15 Estim Creat Clear Calc 84.1 Estimated GFR > 60 POC Glucose Random Glucose 177 H Estimat Average Glucose Hemoglobin A1c % Calcium 8.7 Phosphorus 2.1 L Total Bilirubin 0.5 Direct Bilirubin AST 14 ALT 13 Alkaline Phosphatase 120 H D Total Protein 6.9 D Albumin 4.2 D Lipase Urine Color Urine Appearance Urine pH Ur Specific [place] Urine Protein Urine Glucose (UA) Urine Ketones Urine Blood Urine Nitrite Ur Leukocyte Esterase Urine RBC Urine WBC Ur Squamous Epith Cells Urine Bacteria Hyaline Casts Urine Opiates Screen Not Detected Urine Fentanyl Screen Not Detected Ur Barbiturates Screen Not Detected Ur Phencyclidine Scrn Not Detected Ur Amphetamines Screen Not Detected U Benzodiazepines Scrn Not Detected Urine Cocaine Screen Not Detected U Marijuana (THC) Screen POSITIVE H Acetone, Qual COVID-19 (WILFRED) COVID-19 Clin Com Influenza Type A (FABIO) Influenza Type B (FABIO) Influenza A & B Note 05/07/22 05/07/22 05/07/22 05:23 06:17 07:12 WBC RBC Hgb Hct MCV MCH MCHC RDW Plt Count MPV Immature Gran % (Auto) Neut % (Auto) Lymph % (Auto) Miller % (Auto) Eos % (Auto) Baso % (Auto) Lymph # (Auto) Miller # (Auto) Eos # (Auto) Baso # (Auto) Abs Immat Gran (auto) Absolute Neuts (auto) Absolute Nucleated RBC Nucleated RBC % (auto) VBG pH 7.33 VBG pCO2 22 VBG pO2 52 VBG HCO3 12 L VBG O2 Saturation 85.0 VBG Base Excess -11.6 Sodium Potassium Chloride Carbon Dioxide Anion Gap BUN Creatinine Estim Creat Clear Calc Estimated GFR POC Glucose 178 H 148 H Random Glucose Estimat Average Glucose Hemoglobin A1c % Calcium Phosphorus Total Bilirubin Direct Bilirubin AST ALT Alkaline Phosphatase Total Protein Albumin Lipase Urine Color Urine Appearance Urine pH Ur Specific [place] Urine Protein Urine Glucose (UA) Urine Ketones Urine Blood Urine Nitrite Ur Leukocyte Esterase Urine RBC Urine WBC Ur Squamous Epith Cells Urine Bacteria Hyaline Casts Urine Opiates Screen Urine Fentanyl Screen Ur Barbiturates Screen Ur Phencyclidine Scrn Ur Amphetamines Screen U Benzodiazepines Scrn Urine Cocaine Screen U Marijuana (THC) Screen Acetone, Qual COVID-19 (WILFRED) COVID-19 Clin Com Influenza Type A (FABIO) Influenza Type B (FABIO) Influenza A & B Note 05/07/22 05/07/22 05/07/22 08:04 08:58 Unknown WBC RBC Hgb Hct MCV MCH MCHC RDW Plt Count MPV Immature Gran % (Auto) Neut % (Auto) Lymph % (Auto) Miller % (Auto) Eos % (Auto) Baso % (Auto) Lymph # (Auto) Miller # (Auto) Eos # (Auto) Baso # (Auto) Abs Immat Gran (auto) Absolute Neuts (auto) Absolute Nucleated RBC Nucleated RBC % (auto) VBG pH VBG pCO2 VBG pO2 VBG HCO3 VBG O2 Saturation VBG Base Excess Sodium Cancelled Potassium Cancelled Chloride Cancelled Carbon Dioxide Cancelled Anion Gap Cancelled BUN Cancelled Creatinine Cancelled Estim Creat Clear Calc Cancelled Estimated GFR Cancelled POC Glucose 149 H 146 H Random Glucose Cancelled Estimat Average Glucose Hemoglobin A1c % Calcium Cancelled Phosphorus Total Bilirubin Direct Bilirubin AST ALT Alkaline Phosphatase Total Protein Albumin Lipase Urine Color Urine Appearance Urine pH Ur Specific [place] Urine Protein Urine Glucose (UA) Urine Ketones Urine Blood Urine Nitrite Ur Leukocyte Esterase Urine RBC Urine WBC Ur Squamous Epith Cells Urine Bacteria Hyaline Casts Urine Opiates Screen Urine Fentanyl Screen Ur Barbiturates Screen Ur Phencyclidine Scrn Ur Amphetamines Screen U Benzodiazepines Scrn Urine Cocaine Screen U Marijuana (THC) Screen Acetone, Qual COVID-19 (WILFRED) COVID-19 Clin Com Influenza Type A (FABIO) Influenza Type B (FABIO) Influenza A & B Note Quality Stroke Does the patient have a stroke diagnosis?: No VTE Prior VTE?: No VTE Risk Level:: Medical - moderate - high VTE Device Contraindication: N/A - Device Ordered VTE Drug Contraindication: N/A - Med Ordered
--- NOTE | 2022-05-07 09:24 | PC.NURSE ---
MD at bedside. Plan is to increase D5LR to 250mL/hr, 8 units sq lispro, d/c monitor, ambulate patient frequently.
[2022-05-07 09:37] LABS: Magnesium 1.8 mg/dL (1.6-2.6)
[2022-05-07] MEDS: Sodium,Potassium Phosphates POWD.PACK 2 PACKET PO ×5 (09:51→23:51)
[2022-05-07] MEDS: Potassium Chloride Packet 20 MEQ PACKET 40 MEQ PO ×4 (09:51→23:51)
[2022-05-07] MEDS: Insulin Lispro 100 UNIT/ML 3 ML VIAL 8 UNIT SUBCUT ×3 (09:52→15:10)
--- NOTE | 2022-05-07 10:05 | PC.NURSE ---
pt discussed management of diabetes, states understands what to do, sometimes has difficulty being fully adherent. Discussed case management, efficacy of psychotherapy, normalized challenges in managing chronic illness. Pt alert, calm, awaiting dispo decision.
--- NOTE | 2022-05-07 10:15 | MHC.CM.PN ---
Pt in ICU receiving care for DKA: pt has been a type 1 diabetic for a long time and understands care management. He resides w/spouse and family, works and offers no barriers to care needs. Pt will call spouse for transportation to home.
--- NOTE | 2022-05-07 10:40 | PC.NURSE ---
pt transferred to [facility] bed 452. Report given to [facility]. Pt via wheelchair with PCT.
[2022-05-07] MEDS: Dextrose 5 % and Lactated Ring 1,000 ML 250 ML IVCONT (11:00)
[2022-05-07] MEDS: Magnesium Sulfate/H2O 2 GM/50 ML PIGGYBACK IV (11:01)
--- NOTE | 2022-05-07 11:06 | PC.NURSE ---
Report received from [facility], pt up to floor by wheelchair at 1100. Pt A+Ox4, states he feels much better than yesterday . Pt oriented to room, biomedical engineering technician per sep. Call hernandez within reach, safety precautions taken.
[2022-05-07 11:38] LABS: Anion Gap 20 (12-20); Blood Urea Nitrogen 8 mg/dL (9-16); Calcium 8.3 mg/dL (8.4-10.2); Carbon Dioxide 14 mmol/L (22-29); Chloride 106 mmol/L (96-108); Creatinine Clr Calc Pharmacy 88.7; Estimated Glomerular Filt Rate > 60; Glucose Random 191 mg/dL (60-115); Phosphorus 2.3 mg/dL (2.7-4.5); Potassium 4.2 mmol/L (3.3-5.1); Sodium 136 mmol/L (135-145)
[2022-05-07 18:40] LABS: Anion Gap 15 (12-20); Blood Urea Nitrogen 4 mg/dL (9-16); Calcium 8.4 mg/dL (8.4-10.2); Carbon Dioxide 20 mmol/L (22-29); Chloride 110 mmol/L (96-108); Estimated Glomerular Filt Rate > 60; Glucose Random 109 mg/dL (60-115); Phosphorus 2.1 mg/dL (2.7-4.5); Potassium 3.7 mmol/L (3.3-5.1); Sodium 141 mmol/L (135-145)
[2022-05-07] MEDS: Potassium Phosphate/NS 15 MMOL/250 ML PLAST..BAG 62.5 MMOL IV (21:07)
[2022-05-07] MEDS: Insulin Glargine,Hum.rec.anlog 100 UNIT/ML 10 ML VIAL 45 UNIT SUBCUT (21:07)
[2022-05-07] MEDS: Insulin Lispro 100 UNIT/ML 3 ML VIAL SUBCUT (21:18)
[2022-05-07] MEDS: Melatonin 3 MG TABLET 6 MG PO (23:51)
[2022-05-08] MEDS: Potassium Phosphate/NS 15 MMOL/250 ML PLAST..BAG 62.5 MMOL IV (01:36)
[2022-05-08 03:42] VITALS: BP 136/76; PULSE 87; RESP 18; TEMP 36.1; O2SAT 99
[2022-05-08] MEDS: Dextrose 50 % 25 GM/50 ML SYRINGE IVPUSH (04:52)
[2022-05-08 06:19] LABS: Hematocrit 36.1 % (42.0-52.0); Hemoglobin 12.3 g/dl (14.0-18.0); Mean Corpuscular HGB Conc 34.1 g/dl (31.0-36.0); Mean Corpuscular Hemoglobin 30.4 pg (27.0-33.0); Mean Corpuscular Volume 89.1 fL (80.0-98.0); Mean Platelet Volume 8.7 fL (9.4-12.4); Platelet Count 289 X10*3/uL (160-400); Red Blood Count 4.05 X10*6/uL (4.60-5.80); Red Cell Distribution Width 12.1 % (11.0-16.0); White Blood Count 7.7 X10*3/uL (4.8-10.8)
[2022-05-08 06:47] LABS: Anion Gap 17 (12-20); Blood Urea Nitrogen 3 mg/dL (9-16); Calcium 8.7 mg/dL (8.4-10.2); Carbon Dioxide 19 mmol/L (22-29); Chloride 105 mmol/L (96-108); Creatinine Clr Calc Pharmacy 95.8; Estimated Glomerular Filt Rate > 60; Glucose Random 248 mg/dL (60-115); Magnesium 1.8 mg/dL (1.6-2.6); Phosphorus 3.9 mg/dL (2.7-4.5); Potassium 3.7 mmol/L (3.3-5.1); Sodium 137 mmol/L (135-145)
--- NOTE | 2022-05-08 07:01 | PM.EVENT ---
Event Note Date of Service: 05/08/22 Event Note: Pt downgraded from ICU after being managed for DKA. pt hypoglycemic through the night . treated w d50. may require IVF with d5. will monitor q2H glucose
[2022-05-08 07:20] VITALS: BP 131/84; PULSE 83; RESP 18; TEMP 36.9; O2SAT 99
[2022-05-08 08:00] VITALS: BMI 28.1
[2022-05-08] MEDS: Insulin Lispro 100 UNIT/ML 3 ML VIAL SUBCUT (08:52)
[2022-05-08 11:15] VITALS: BP 163/86; RESP 19; TEMP 36.6; O2SAT 98
--- NOTE | 2022-05-08 12:12 | P.DS_ITS ---
DS: Providers Provider Date of Service: 05/08/22 Date of admission: 05/06/22 23:08 Primary care physician: JORGE LUIS Larry Attending physician on discharge: Fredrick Mcallister Discharging clinician: Fredrick Mcallister DS: Summary Hospital Course Hospital Course: 35-year-old male with history of type 1 diabetes who has had several episodes of DKA in the past, oral surgery, anxiety, depression, PTSD, pilonidal cyst surgery otherwise in good health.? States that he has been under a lot of stress over the past week and 2-3 days ago he started feeling sick, having generalized abdominal discomfort 5/10, non localized, nonradiating, associated with nausea, vomiting and intermittent diarrhea, polydipsia, polyuria but not able to eat or drink properly since . ? ? Patient states that despite of feeling sick he continued to administer his insulin but he was not getting any better therefore he came to the emergency room.? He was slightly tachycardic otherwise normotensive, his workup revealed white count 23.5, H&H of 16 and 48 respectively, platelets 497, sodium 132, potassium 6.6, chloride 99, carbon dioxide 7, anion gap 33, creatinine 1.72 (baseline 1.0), blood glucose 447, LFTs within normal limits, lipase 10.? Albumin 5.5. ?He did have moderate acetone in the urine.? U tox not performed.? His urinalysis did reveal glucosuria, proteinuria but otherwise negative.? COVID negative. ?CT abdomen pelvis showed limited assessment for wall thickening of the colon due to luminal collapse.? Mild colitis would be difficult to entirely exclude in the proper clinical setting.? Otherwise no acute findings identified. ? Patient was treated with normal saline initially then switched to LR, given 5 units of insulin IV followed by insulin drip of 4 units/hour. ?His blood gas showed significant metabolic acidosis.? Repeated chemistry did show decrease of the potassium to 5.3, decrease of creatinine to 1.5, blood glucose 290.? Currently patient states that he feels much better although he still little shaky.? Patient attributes all his symptoms to significant stress due to work and personal issues. hospital course: patient patient came with DKA treated with IV insulin in ICU and hydrated for BISI as well as electrolyte repletions seems to be improved-fingersticks improving with oral intake, Patient says that he missed the is Lantus and also was is stressful situation that might have precipitated his DKA. Patient currently asymptomatic denies any nausea vomiting or abdominal pain or diarrhea, no fevers-possible initial symptoms are related to DKA initially, leukocytosis also seems reactive to DKA which is resolved. Continue home regimen and fingerstick monitoring at home as discussed. Follow-up with PCP and endocrinology out patiently. Monitor BMP and electrolytes with PCP in 1 week. plan: Continue home regimen and fingerstick monitoring at home as discussed. Monitor BMP and electrolytes with PCP in 1 week. Above management discussed with the patient in detail length he understand and in agreement with the above plan, time spent 50 minutes and 50% time spent on c ounseling. Significant findings: As above. Procedures performed: None. Treatment and response: As above. Complications: None. Time Spent with Patient Time attestation: Total time spent providing and/or coordinating discharge services: Discharge coordination time: Greater than 30 minutes Quality: Safe Use of Opioids Does Pt have an Active Cancer Diagnosis on the Problem List?: No Quality: Stroke Does the patient have a stroke diagnosis?: No Physical Exam Vital Signs: Vital Signs: Last Vital Signs Temp 97.8 F 05/08/22 11:15 Pulse 83 05/08/22 07:20 Resp 19 05/08/22 11:15 BP 163/86 H 05/08/22 11:15 Pulse Ox 98 05/08/22 11:15 O2 Del Method 05/08/22 11:15 BMI result Body Mass Index 28.1 Appearance: Alert.? Oriented X3.? not in distress.? Eyes: Pupils equal, round and reactive to light.? Sclera nonicteric.? ENT: Pharynx normal.? Moist mucous membranes. cvs: rrr, [id number] , no murmur res: clear to auscultation ,no rhonchii or wheezing abd: no rebound or guarding ,nt, bs present. ext pulses present , no cyanosis. neuro: axo3 , nonfocal. DS: Data Data Completed and Pending Labs on day of discharge: Laboratory Results - last 24 hr 05/07/22 05/07/22 05/07/22 14:00 14:56 16:09 WBC RBC Hgb Hct MCV MCH MCHC RDW Plt Count MPV Absolute Nucleated RBC Nucleated RBC % (auto) Sodium Potassium Chloride Carbon Dioxide Anion Gap BUN Creatinine Estim Creat Clear Calc Estimated GFR POC Glucose 214 H 187 H 142 H Random Glucose Calcium Phosphorus Magnesium 05/07/22 05/07/22 05/07/22 16:59 18:02 18:12 WBC RBC Hgb Hct MCV MCH MCHC RDW Plt Count MPV Absolute Nucleated RBC Nucleated RBC % (auto) Sodium 141 Potassium 3.7 Chloride 110 H Carbon Dioxide 20 L Anion Gap 15 BUN 4 L Creatinine 0.93 Estim Creat Clear Calc 104.0 Estimated GFR > 60 POC Glucose 102 106 Random Glucose 109 D Calcium 8.4 Phosphorus 2.1 L Magnesium 2.0 05/07/22 05/07/22 05/07/22 19:35 20:21 23:55 WBC RBC Hgb Hct MCV MCH MCHC RDW Plt Count MPV Absolute Nucleated RBC Nucleated RBC % (auto) Sodium Potassium Chloride Carbon Dioxide Anion Gap BUN Creatinine Estim Creat Clear Calc Estimated GFR POC Glucose 150 H 156 H 80 Random Glucose Calcium Phosphorus Magnesium 05/08/22 05/08/22 05/08/22 00:36 01:35 03:45 WBC RBC Hgb Hct MCV MCH MCHC RDW Plt Count MPV Absolute Nucleated RBC Nucleated RBC % (auto) Sodium Potassium Chloride Carbon Dioxide Anion Gap BUN Creatinine Estim Creat Clear Calc Estimated GFR POC Glucose 115 93 57 L* Random Glucose Calcium Phosphorus Magnesium 05/08/22 05/08/22 05/08/22 04:10 05:59 06:02 WBC RBC Hgb Hct MCV MCH MCHC RDW Plt Count MPV Absolute Nucleated RBC Nucleated RBC % (auto) Sodium 137 Potassium 3.7 Chloride 105 Carbon Dioxide 19 L Anion Gap 17 BUN 3 L Creatinine 1.01 Estim Creat Clear Calc 95.8 Estimated GFR > 60 POC Glucose 95 238 H Random Glucose 248 H D Calcium 8.7 Phosphorus 3.9 Magnesium 1.8 05/08/22 05/08/22 05/08/22 06:03 07:24 11:17 WBC 7.7 RBC 4.05 L Hgb 12.3 L Hct 36.1 L MCV 89.1 MCH 30.4 MCHC 34.1 RDW 12.1 Plt Count 289 D MPV 8.7 L Absolute Nucleated RBC 0.000 Nucleated RBC % (auto) 0.0 Sodium Potassium Chloride Carbon Dioxide Anion Gap BUN Creatinine Estim Creat Clear Calc Estimated GFR POC Glucose 193 H 259 H Random Glucose Calcium Phosphorus Magnesium Additional Comments Additional comments: CT/CT abdomen pelvis wo IV con IMPRESSION: Limited assessment for wall thickening in the colon due to luminal collapse; therefore a mild colitis would be difficult to entirely exclude in the proper clinical setting. Otherwise, no acute findings identified. XR/XR chest 1V IMPRESSION: No acute cardiopulmonary findings. Discharge Plan Discharge Anticipated Discharge Date/Time: 05/08/22 11:44 Patient Disposition: Home, Self-Care Discharge Diagnosis: DKA and BISI. Referrals: Catalina Gallardo FNP [Primary Care Provider] - 1 Week Discharge Medications: Continued sertraline 100 mg tablet 2 tab PO DAILY insulin lispro [Humalog KwikPen Insulin] 100 unit/mL insulin pen 10 - 15 unit subcut TIDWMEAL Label Comments: sliding scale insulin glargine [Lantus Solostar U-100 Insulin] 100 unit/mL (3 mL) insulin pen 45 unit subcut BEDTIME melatonin 5 mg Tablet 5 mg PO BEDTIME PRN (Reason: Sleep) Discharge Orders: Discharge Order (Routine); Ordered 05/08/22 Ordered By: Fredrick Mcallister Diet: Advance to usual diet Activity on Discharge: As tolerated Stand Alone Forms: Patient Portal Discharge page Care Plan Goals: patient patient came with DKA treated with IV insulin in ICU and hydrated for BISI as well as electrolyte repletions seems to be improved-fingersticks improving with oral intake, Patient says that he missed the is Lantus and also was is stressful situation that might have precipitated his DKA. Continue home regimen and fingerstick monitoring at home as discussed. Follow-up with PCP and endocrinology out patiently. Monitor BMP and electrolytes with PCP in 1 week. Health Concerns: Continue home regimen and fingerstick monitoring at home as discussed. Monitor BMP and electrolytes with PCP in 1 week. Plan of Treatment: as above. Assessment: as above.
--- NOTE | 2022-05-08 12:22 | MHC.CM.PN ---
order home, self care. CM acknowledge.
== END 2022-05-08 12:44 | disposition home or self-care (01) | DRG 638 ==
LOC: HO.ED 20:29 → HO.EDOVER 23:29 → HO.ICU 05-07 00:03 → HO.IMC 05-07 10:39 → HO.S3 05-07 19:41
PROVIDERS: Anesthesiology; Physician Assistant; Admitting Provider Physician Assistant Medical; Emergency Provider Emergency Medicine; PCP Nurse Practitioner Family; Visit Provider Internal Medicine
DX: E10.10 Type 1 diabetes mellitus with ketoacidosis without coma (principal); N17.9 Acute kidney failure, unspecified; E10.649 Type 1 diabetes mellitus with hypoglycemia without coma; E86.1 Hypovolemia; F41.9 Anxiety disorder, unspecified; F32.A Depression, unspecified; Z20.822 Contact with and (suspected) exposure to COVID-19; Z87.891 Personal history of nicotine dependence; Z88.0 Allergy status to penicillin; Z79.899 Other long term (current) drug therapy
CPT/HCPCS: 36415; 71045; 74176; 80048; 80053; 80076; 80307; 81001; 82009; 82803; 82947; 83036; 83690; 83735; 84100; 85025; 85027; 87502; 87635; 93005; 96365; 96366; 96375; 99285; J2405; J2765; J3475

== ENCOUNTER 2025-07-04 09:46 | Emergency (ER) | payer OTHER, SELFPAY ==
[2025-07-04 09:52] VITALS: BP 134/95; PULSE 93; RESP 18; TEMP 36.2; O2SAT 98; BMI 26.4
[2025-07-04 10:04] LABS: Glucose, Whole Blood 311 mg/dL (60-115)
[2025-07-04 10:41] LABS: MANUAL DIFF FLAG NO
[2025-07-04 10:46] LABS: VBG HCO3 18 mmol/L (22-26); VBG O2 % Saturation 88.0 %
[2025-07-04 10:47] LABS: Appearance Urine Clear; Glucose Urine UA >=1000 mg/dL (Negative); PH 5.5 (5.0-9.0); Specific Gravity - Urine >= 1.030 (1.005-1.025); UMIC TRIGGER UACC YES
[2025-07-04 10:48] LABS: Hematocrit 47.1 % (42.0-52.0); Hemoglobin 15.9 g/dl (14.0-18.0); Imm Gran Abs Auto 0.04 X10*3/uL (0.00-0.03); Imm Gran Pct Auto 0.3 % (0.0-0.4); Lymphocytes Absolute Auto 1.0 X10*3/uL (1.2-4.9); Mean Corpuscular HGB Conc 33.8 g/dl (31.0-36.0); Mean Corpuscular Hemoglobin 30.6 pg (27.0-33.0); Mean Corpuscular Volume 90.8 fL (80.0-98.0); NRBC Abs Auto 0.000 X10*3/uL (0.0-0.012); NRBC Pct Auto 0.0 /100WBC (0.0-0.2); Platelet Count 309 X10*3/uL (160-400); Red Blood Count 5.19 X10*6/uL (4.60-5.80); White Blood Count 11.6 X10*3/uL (4.8-10.8)
--- NOTE | 2025-07-04 10:53 | ED_ITS ---
HPI - General Adult General Chief complaint: Recheck/Abnormal Lab/Rx Stated complaint: ketoacidosis Time Seen by Provider: 07/04/25 10:19 Source: patient Mode of arrival: ambulatory Limitations: no limitations History of Present Illness ED Provider: ERIN Hubbard HPI narrative: Chief Complaint: ?I?m having symptoms that feel like DKA.? History of Present Illness: The patient is a type 1 diabetic who reports the acute onset of polyuria and polydipsia beginning last night, followed by nausea and vomiting that started this morning. He has a history of diabetic ketoacidosis on two prior occasions. The patient suspects that a scheduled insulin pump bolus at dinner last night may have timed out, resulting in a missed dose. He denies visual changes and chest pain, noting only general discomfort and nausea. Related Data Home Medications ?Medication ?Instructions ?Recorded ?Confirmed insulin lispro 100 unit/mL 10 - 15 unit subcut TIDWMEA L 12/28/20 05/06/22 subcutaneous pen (Humalog KwikPen (U-100) Insulin) sertraline 100 mg tablet 2 tab PO DAILY 12/28/2002/18 insulin glargine 100 unit/mL (3 45 unit subcut BEDTIME 05/06/22 05/06/22 mL) subcutaneous pen (Lantus Solostar U-100 Insulin) melatonin 5 mg tablet 5 mg PO BEDTIME PRN Sleep 05/06/22 Allergies Allergy/AdvReac Type Severity Reaction Status Date / Time Penicillins Allergy Hives Verified 07/04/25 09:53 Review of Systems 2 Review of Systems: Constitutional: +polyuria, +polydipsia. Gastrointestinal: +nausea, +vomiting (started this morning). Cardiovascular: denies chest pain (reports discomfort only). Eyes: denies visual changes. Yes all other systems are reviewed and are negative PMFSH Past Medical History Attestation statement: The following information was validated with the patient. Source: old records reviewed and nursing notes reviewed Medical History Depression Diabetes type I Social History Social History Household Members: Spouse Housing: House Do you presently have visiting nurse or other home services: No Patient Tobacco Use Status: Former Tobacco user Tobacco use type: Cigarette Years Smoked: 2 Second Hand Smoke Exposure: Yes (MINIMAL) Substance Use Type: Marijuana Advance Directives: No Advance Directives Information Provided: Yes Do you have a plan to hurt others: No Plan service: No Current occupational status: employed Physical Exam ED Exam Exam: Appearance: Alert.? Oriented X3.? No acute distress.? Head: Normocephalic, atraumatic, no step-offs or deformities Eyes: Pupils equal, round and reactive to light.? Neck: Normal inspection.? Neck supple.? CVS: Normal heart rate and rhythm.? Pulses normal.? Respiratory: No respiratory distress.? Breath sounds normal.? Abdomen: Soft and nontender.? Skin: Skin warm and dry.? Normal skin color.? Normal skin turgor.? Extremities: No lower extremity edema.? No calf ttp. 5/5 strength to bilateral upper and lower extremities Neuro: Oriented X 3.? No motor deficit.? No sensory deficit. CN 2-12 intact Vital Signs: Vital Signs - 24 hr 07/04/25 09:52 07/04/25 15:30 Temperature 97.1 F 97.1 F Pulse Rate 93 93 Respiratory Rate 18 18 Blood Pressure 134/95 H 134/95 H Pulse Oximetry 98 98 Oxygen Delivery Method Room Air Room Air BMI result Body Mass Index 26.4 Vital signs stable Course Reevaluation(s) Reevaluation #1: CBC with leukocytosis 11.6 likely in the setting of nausea and vomiting unlikely infectious in origin. Chemistry with elevated anion gap 22 likely DKA unlikely infection. Lactic acid again elevated 2.2 likely in the setting of DKA not infection. Point of care 236 will hold on pushing IV insulin at this time will just give IV fluids. Beta hydroxybutyrate 4.23 and patient's pH 7.23 at this time I do suspect DKA. Will closely monitor patient. Time: 11:41 Reevaluation #2: 2:16 PM 07/04/2025 (Dr. Tono Young): I was asked to evaluate the patient who has had some questions regarding his care, patient presented with some degree of dehydration slight elevated anion gap, some elevation of beta hydroxybutyrate and lactic acid, with fluids he corrected quite well, he is not acidotic, initial VBG was minimally acidotic, bad acidosis corrected, lactic acid corrected, Bhb remained more or less the same Clinically patient states he feels very well, he has responded to fluids and one of the issues is that he did not want to turn off his insulin pump he is concerned that he is going to be dosed inappropriately and we will become hypoglycemic and then he did not want to be on an insulin drip, he states that he just feels well with IV fluids and he does not feel that any further interventions are indicated. I discussed with the him my usual practice is to turn off the pump and rely on our equipment he states that our equipment is likely not functional well and he feels that he is actually more hypoglycemic then reported by our machines. He is otherwise alert oriented, able to reason through diabetic care, I feel that fluids is adequate in his care and if patient is not interested in additional insulin administration by staff and he feels clinically better I feel that it is reasonable. Reevaluation #3: My attending spoke to the patient he doesnt want admission. He doesnt want our insuling he wants to continue to use the pump. My attending spoke to patient he will leave AMA Time: 16:03 Medications Administered Discontinued Medications Generic Name Dose Route Start Last Admin Trade Name Freq PRN Reason Stop Dose Admin Sodium Chloride 1,000 mls @ 999 mls/hr 07/04/25 10:30 07/04/25 11:52 Ns IV 07/04/25 11:30 Infused .Q1H1M CHERYL Infusion Sodium Chloride 1,000 mls @ 999 mls/hr 07/04/25 11:00 07/04/25 12:59 Ns IV 07/04/25 12:00 Infused .Q1H1M CHERYL Infusion Ondansetron HCl 4 mg 07/04/25 11:41 07/04/25 11:52 Ondansetron Hcl 4 Mg/2 Ml Vial IVPUSH 07/04/25 11:42 4 mg ONCE ONE Administration Medical Decision Making Medical Decision Making MDM Narrative: The patient presents with hyperglycemic symptoms concerning for diabetic ketoacidosis (DKA) versus hyperosmolar hyperglycemic state (HHS). He has a known history of type 1 diabetes and reports a possible missed insulin dose. Problem #1: Suspected Diabetic Ketoacidosis (rule out HHS) Assessment: Acute onset polyuria, polydipsia, nausea, and vomiting; history of DKA ? 2; possible missed insulin bolus; labs pending to confirm diagnosis. Plan: * Intravenous normal saline bolus initiated will order insulin * Monitor laboratory results (serum glucose, ketones, electrolytes, blood gas) and adjust treatment per protocol once available. * Provide ice chips per patient request for comfort. * Reassess clinically and with repeat labs once initial results return. Problem #2: Type 1 Diabetes Mellitus (chronic) Assessment: Established T1DM managed with insulin pump. Plan: * Likely in DKA Follow-up: Will reassess in the department after labs result and adjust management accordingly. Differential Diagnosis Differential Diagnoses: The differential diagnosis associated with the presentation includes * Diabetic Ketoacidosis (DKA): Most likely given the acute onset of polyuria, polydipsia, nausea, vomiting, history of DKA, and possible missed insulin dose. * Hyperosmolar Hyperglycemic State (HHS): Less common in type 1 diabetes but considered due to severe hyperglycemia and dehydration symptoms. * Acute Viral or Bacterial Gastroenteritis: Can present with nausea and vomiting, but polyuria and polydipsia are less typical unless accompanied by hyperglycemia. * Medication-related Hyperglycemia or Metabolic Disturbance: Missed insulin dose or pump malfunction may precipitate hyperglycemia and metabolic derangement. * Other Causes of Vomiting and Dehydration (e.g., urinary tract infection, acute kidney injury, pancreatitis): These conditions may cause vomiting and dehydration, but the history and context make DKA/HHS more likely. Admission/Observation Consideration of admission/observation: Escalation of care including admission/observation considered (Likely ) Lab Data MDM Lab Attestation statement: I reviewed the patient's lab results. 07/04/25 13:09 07/04/25 13:09 Labs: Lab Results 07/04/25 07/04/25 07/04/25 Range/Units 09:57 10:33 10:41 WBC 11.6 H (4.8-10.8) X10*3/uL RBC 5.19 D (4.60-5.80) X10*6/uL Hgb 15.9 D (14.0-18.0) g/dl Hct 47.1 D (42.0-52.0) % MCV 90.8 (80.0-98.0) fL MCH 30.6 (27.0-33.0) pg MCHC 33.8 (31.0-36.0) g/dl RDW 11.5 (11.0-16.0) % Plt Count 309 (160-400) X10*3/uL MPV 8.7 L (9.4-12.4) fL Immature Gran % (Auto) 0.3 (0.0-0.4) % Neut % (Auto) 87.3 H (45-73) % Lymph % (Auto) 8.5 L (20-40) % [place] % (Auto) 3.5 (2-11) % Eos % (Auto) 0.1 (0-4) % Baso % (Auto) 0.3 (0-2) % Lymph # (Auto) 1.0 L (1.2-4.9) X10*3/uL [place] # (Auto) 0.4 (0.1-1.2) X10*3/uL Eos # (Auto) 0.0 (0.0-0.4) X10*3/uL Baso # (Auto) 0.0 (0.0-0.2) X10*3/uL Abs Immat Gran (auto) 0.04 H (0.00-0.03) X10*3/uL Absolute Neuts (auto) 10.1 H (2.0-8.3) x10*3/uL Absolute Nucleated RBC 0.000 (0.0-0.012) X10*3/uL Nucleated RBC % (auto) 0.0 (0.0-0.2) /100WBC Smear Tech's Comments VBG pH 7.28 L (7.32-7.43) VBG pCO2 38 mmHg VBG pO2 61 mmHg VBG HCO3 18 L (22-26) mmol/L VBG O2 Saturation 88.0 % VBG Base Excess -7.8 mmol/L Sodium 136 (135-145) mmol/L Potassium 4.6 (3.3-5.1) mmol/L Chloride 102 (96-108) mmol/L Carbon Dioxide 17 L (22-29) mmol/L Anion Gap 22 H (12-20) BUN 18 H (9-16) mg/dL Creatinine 0.98 (0.5-1.4) mg/dL Estim Creat Clear Calc 90.4 Estimated GFR > 60 POC Glucose 311 H (60-115) mg/dL Random Glucose 284 H (60-115) mg/dL Lactic Acid 2.2 H* (0.5-2.0) mmol/L Lactic Acid F/U @ 2Hr (0.5-2.0) mmol/L Calcium 9.6 D (8.4-10.2) mg/dL Magnesium 2.1 (1.6-2.6) mg/dL Total Bilirubin 1.0 (0.0-1.0) mg/dL AST 32 (5-37) U/L ALT 20 (0-40) U/L Alkaline Phosphatase 112 (39-117) U/L Total Protein 8.6 H (6.5-8.0) g/dL Albumin 5.2 H (3.5-5.0) g/dL Beta-Hydroxybutyrate 4.23 H (0.02-0.27) mmol/L Urine Color Yellow Urine Appearance Clear Urine pH 5.5 (5.0-9.0) Ur Specific Addy >= 1.030 H (1.005-1.025) Urine Protein 100 (2+) H (Neg-Trace) mg/dL Urine Glucose (UA) >=1000 H (Negative) mg/dL Urine Ketones >=160 (Negative) mg/dL Urine Blood Small (1+) H (Negative) Urine Nitrite Negative (Negative) Ur Leukocyte Esterase Negative (Negative) Urine RBC 0-2 (0-2) /HPF Urine WBC 0-5 (0-5) /HPF Ur Squamous Epith Cells 0-2 (0-2) /HPF Urine Bacteria None Seen (None Seen) Hyaline Casts 0-2 (0-2) /LPF 07/04/25 07/04/25 07/04/25 Range/Units 11:10 13:09 13:14 WBC 13.5 H (4.8-10.8) X10*3/uL RBC 4.39 L (4.60-5.80) X10*6/uL Hgb 13.6 L (14.0-18.0) g/dl Hct 39.2 L (42.0-52.0) % MCV 89.3 (80.0-98.0) fL MCH 31.0 (27.0-33.0) pg MCHC 34.7 (31.0-36.0) g/dl RDW 11.6 (11.0-16.0) % Plt Count 280 (160-400) X10*3/uL MPV 8.7 L (9.4-12.4) fL Immature Gran % (Auto) 0.4 (0.0-0.4) % Neut % (Auto) 91.2 H (45-73) % Lymph % (Auto) 5.6 L (20-40) % [place] % (Auto) 2.6 (2-11) % Eos % (Auto) 0.0 (0-4) % Baso % (Auto) 0.2 (0-2) % Lymph # (Auto) 0.8 L (1.2-4.9) X10*3/uL [place] # (Auto) 0.4 (0.1-1.2) X10*3/uL Eos # (Auto) 0.0 (0.0-0.4) X10*3/uL Baso # (Auto) 0.0 (0.0-0.2) X10*3/uL Abs Immat Gran (auto) 0.05 H (0.00-0.03) X10*3/uL Absolute Neuts (auto) 12.3 H (2.0-8.3) x10*3/uL Absolute Nucleated RBC 0.000 (0.0-0.012) X10*3/uL Nucleated RBC % (auto) 0.0 (0.0-0.2) /100WBC Smear Tech's Comments VERIFIED VBG pH 7.35 (7.32-7.43) VBG pCO2 27 mmHg VBG pO2 62 mmHg VBG HCO3 15 L (22-26) mmol/L VBG O2 Saturation 90.0 % VBG Base Excess -8.5 mmol/L Sodium 138 (135-145) mmol/L Potassium 4.6 (3.3-5.1) mmol/L Chloride 108 (96-108) mmol/L Carbon Dioxide 18 L (22-29) mmol/L Anion Gap 17 (12-20) BUN 15 (9-16) mg/dL Creatinine 0.79 (0.5-1.4) mg/dL Estim Creat Clear Calc 112.1 Estimated GFR > 60 POC Glucose 236 H (60-115) mg/dL Random Glucose 188 H (60-115) mg/dL Lactic Acid (0.5-2.0) mmol/L Lactic Acid F/U @ 2Hr 1.2 (0.5-2.0) mmol/L Calcium 8.4 D (8.4-10.2) mg/dL Magnesium (1.6-2.6) mg/dL Total Bilirubin 0.8 (0.0-1.0) mg/dL AST 19 (5-37) U/L ALT 15 (0-40) U/L Alkaline Phosphatase 91 (39-117) U/L Total Protein 7.1 (6.5-8.0) g/dL Albumin 4.4 (3.5-5.0) g/dL Beta-Hydroxybutyrate 4.36 H (0.02-0.27) mmol/L Urine Color Urine Appearance Urine pH (5.0-9.0) Ur Specific Addy (1.005-1.025) Urine Protein (Neg-Trace) mg/dL Urine Glucose (UA) (Negative) mg/dL Urine Ketones (Negative) mg/dL Urine Blood (Negative) Urine Nitrite (Negative) Ur Leukocyte Esterase (Negative) Urine RBC (0-2) /HPF Urine WBC (0-5) /HPF Ur Squamous Epith Cells (0-2) /HPF Urine Bacteria (None Seen) Hyaline Casts (0-2) /LPF 07/04/25 Range/Units 13:18 WBC (4.8-10.8) X10*3/uL RBC (4.60-5.80) X10*6/uL Hgb (14.0-18.0) g/dl Hct (42.0-52.0) % MCV (80.0-98.0) fL MCH (27.0-33.0) pg MCHC (31.0-36.0) g/dl RDW (11.0-16.0) % Plt Count (160-400) X10*3/uL MPV (9.4-12.4) fL Immature Gran % (Auto) (0.0-0.4) % Neut % (Auto) (45-73) % Lymph % (Auto) (20-40) % [place] % (Auto) (2-11) % Eos % (Auto) (0-4) % Baso % (Auto) (0-2) % Lymph # (Auto) (1.2-4.9) X10*3/uL [place] # (Auto) (0.1-1.2) X10*3/uL Eos # (Auto) (0.0-0.4) X10*3/uL Baso # (Auto) (0.0-0.2) X10*3/uL Abs Immat Gran (auto) (0.00-0.03) X10*3/uL Absolute Neuts (auto) (2.0-8.3) x10*3/uL Absolute Nucleated RBC (0.0-0.012) X10*3/uL Nucleated RBC % (auto) (0.0-0.2) /100WBC Smear Tech's Comments VBG pH (7.32-7.43) VBG pCO2 mmHg VBG pO2 mmHg VBG HCO3 (22-26) mmol/L VBG O2 Saturation % VBG Base Excess mmol/L Sodium (135-145) mmol/L Potassium (3.3-5.1) mmol/L Chloride (96-108) mmol/L Carbon Dioxide (22-29) mmol/L Anion Gap (12-20) BUN (9-16) mg/dL Creatinine (0.5-1.4) mg/dL Estim Creat Clear Calc Estimated GFR POC Glucose 178 H (60-115) mg/dL Random Glucose (60-115) mg/dL Lactic Acid (0.5-2.0) mmol/L Lactic Acid F/U @ 2Hr (0.5-2.0) mmol/L Calcium (8.4-10.2) mg/dL Magnesium (1.6-2.6) mg/dL Total Bilirubin (0.0-1.0) mg/dL AST (5-37) U/L ALT (0-40) U/L Alkaline Phosphatase (39-117) U/L Total Protein (6.5-8.0) g/dL Albumin (3.5-5.0) g/dL Beta-Hydroxybutyrate (0.02-0.27) mmol/L Urine Color Urine Appearance Urine pH (5.0-9.0) Ur Specific Addy (1.005-1.025) Urine Protein (Neg-Trace) mg/dL Urine Glucose (UA) (Negative) mg/dL Urine Ketones (Negative) mg/dL Urine Blood (Negative) Urine Nitrite (Negative) Ur Leukocyte Esterase (Negative) Urine RBC (0-2) /HPF Urine WBC (0-5) /HPF Ur Squamous Epith Cells (0-2) /HPF Urine Bacteria (None Seen) Hyaline Casts (0-2) /LPF External Record Review External record reviewed: Inpatient record, Office record, Outpatient record, Prior outpatient labs, Prior outpatient radiology, Primary care record and Outside ED record Chronic Conditions Patient?s care impacted by: Diabetes and Other (see hpi ) Critical Care Time Critical Care Time Critical Care Time: Yes Total Critical Care Time: 35 Attestation: I attest to this time spent taking care of the patient, obtaining history, physical, reviewing labs, imaging, speaking to my attending and or speaking to specialist. Or preforming a procedure Discharge Plan Discharge Clinical Impression: DKA (diabetic ketoacidosis), Left against medical advice Patient Disposition: Home, Self-Care Additional Instructions: Take your medications as prescribed. If you were prescribed antibiotics today, it is important that you take your medication to their entirety, do not skip any doses, do not finish them early. Follow-up with your primary care provider this week. Return to the emergency department with new or worsening symptoms. Such as fevers, chills, chest pain, shortness of breath, nausea, vomiting, dizziness, headache, vision changes, lethargy In case of emergency call 911 Prescriptions: No Action sertraline 100 mg tablet 2 tab PO DAILY insulin lispro [Humalog KwikPen Insulin] 100 unit/mL insulin pen 10 - 15 unit subcut TIDWMEAL Patient Comments: sliding scale insulin glargine [Lantus Solostar U-100 Insulin] 100 unit/mL (3 mL) insulin pen 45 unit subcut BEDTIME melatonin 5 mg Tablet 5 mg PO BEDTIME PRN (Reason: Sleep) Referrals: Tati Moise MD [Primary Care Provider, Internal Medicine] Stand Alone Forms: Against Medical Advice, Work/School Release Interventions: ED Discharge Assessment Last Done: 07/04/25 15:30 Discharge Date/Time: 07/04/25 15:55 Print Language: Telugu
[2025-07-04 10:54] LABS: Venous Blood Gas Refer to POC result
[2025-07-04 11:08] LABS: Alanine Aminotransferase 20 U/L (0-40); Albumin Level 5.2 g/dL (3.5-5.0); Alkaline Phosphatase 112 U/L (39-117); Anion Gap 22 (12-20); Aspartate Amino Transferase 32 U/L (5-37); Blood Urea Nitrogen 18 mg/dL (9-16); Calcium 9.6 mg/dL (8.4-10.2); Carbon Dioxide 17 mmol/L (22-29); Chloride 102 mmol/L (96-108); Creatinine Clr Calc Pharmacy 90.4; Estimated Glomerular Filt Rate > 60; Magnesium 2.1 mg/dL (1.6-2.6); Potassium 4.6 mmol/L (3.3-5.1); Sodium 136 mmol/L (135-145); Total Protein 8.6 g/dL (6.5-8.0)
[2025-07-04 11:13] LABS: Glucose, Whole Blood 236 mg/dL (60-115)
[2025-07-04 12:39] LABS: Reflex Lactate? Lactic Acid Added
[2025-07-04 13:17] LABS: Venous Blood Gas Refer to POC result
[2025-07-04 13:18] LABS: VBG HCO3 15 mmol/L (22-26); VBG O2 % Saturation 90.0 %
[2025-07-04 13:19] LABS: Hematocrit 39.2 % (42.0-52.0); Hemoglobin 13.6 g/dl (14.0-18.0); Imm Gran Abs Auto 0.05 X10*3/uL (0.00-0.03); Imm Gran Pct Auto 0.4 % (0.0-0.4); Lymphocytes Absolute Auto 0.8 X10*3/uL (1.2-4.9); MANUAL DIFF FLAG SCAN; Mean Corpuscular HGB Conc 34.7 g/dl (31.0-36.0); Mean Corpuscular Hemoglobin 31.0 pg (27.0-33.0); Mean Corpuscular Volume 89.3 fL (80.0-98.0); NRBC Abs Auto 0.000 X10*3/uL (0.0-0.012); NRBC Pct Auto 0.0 /100WBC (0.0-0.2); Platelet Count 280 X10*3/uL (160-400); Red Blood Count 4.39 X10*6/uL (4.60-5.80); SCAN SMEAR FLAG 1; White Blood Count 13.5 X10*3/uL (4.8-10.8)
[2025-07-04 13:22] LABS: Glucose, Whole Blood 178 mg/dL (60-115)
[2025-07-04 13:37] LABS: ~Lactic Acid-LAB USE ONLY 1.2 mmol/L (0.5-2.0)
[2025-07-04 14:07] LABS: Alanine Aminotransferase 15 U/L (0-40); Albumin Level 4.4 g/dL (3.5-5.0); Alkaline Phosphatase 91 U/L (39-117); Anion Gap 17 (12-20); Aspartate Amino Transferase 19 U/L (5-37); Blood Urea Nitrogen 15 mg/dL (9-16); Calcium 8.4 mg/dL (8.4-10.2); Carbon Dioxide 18 mmol/L (22-29); Chloride 108 mmol/L (96-108); Creatinine Clr Calc Pharmacy 112.1; Estimated Glomerular Filt Rate > 60; Potassium 4.6 mmol/L (3.3-5.1); Sodium 138 mmol/L (135-145); Total Protein 7.1 g/dL (6.5-8.0)
[2025-07-04 15:30] VITALS: BP 134/95; PULSE 93; RESP 18; TEMP 36.2; O2SAT 98
--- NOTE | 2025-07-04 15:47 | PC.NURSE ---
Pt comes to ED today for c/o vomiting and elevated blood sugar. Pt states he did not receive and insulin bolus last night on accident. He also states he is concerned for DKA. IVF given per MAR. Pt rests comfortably on stretcher Pt alerts this RN at approx. 1330 that his personal glucose meter is reading 46 for a blood glucose. [facility] [place] showing 178 Pt become increasingly upset with his reading of 46 and demands to have juice. He states his pump has been administering insulin while here in the ED and that C POC machines are inaccurate. Given Pts level of agitation and refusal to further discuss any details surrounding insulin pump, Pt was provided with one apple juice. Pt was pleased with this intervention and agreed to remain in ED while waiting for pending blood work results. Provider to bedside to discuss plan of care with Pt. Pt refuses to stay for admission at this time. Pt was d/c'd from ED AMA. AMA paperwork completed.
== END 2025-07-04 15:55 | disposition home or self-care (01) ==
PROVIDERS: Emergency Medicine; Physician Assistant; Emergency Provider Emergency Medicine; PCP Pediatrics
DX: E10.10 Type 1 diabetes mellitus with ketoacidosis without coma (principal); R79.89 Other specified abnormal findings of blood chemistry; R11.2 Nausea with vomiting, unspecified; E10.9 Type 1 diabetes mellitus without complications; Z96.41 Presence of insulin pump (external) (internal); Z79.4 Long term (current) use of insulin; Z79.899 Other long term (current) drug therapy; Z87.891 Personal history of nicotine dependence
CPT/HCPCS: 36415; 80053; 81001; 82010; 82803; 82947; 83605; 83735; 85025; 96361; 96374; 96375; 99284; J2405

== ENCOUNTER 2025-07-08 08:58 | Emergency (ER) | payer OTHER, SELFPAY ==
[2025-07-08 09:33] VITALS: BP 168/99; PULSE 83; RESP 18; TEMP 36.8; O2SAT 98; BMI 28.9
--- NOTE | 2025-07-08 09:34 | ED_ITS ---
HPI - General Adult General Chief complaint: Recheck/Abnormal Lab/Rx Stated complaint: General Medical Time Seen by Provider: 07/08/25 10:52 Source: patient Mode of arrival: ambulatory Limitations: no limitations History of Present Illness ED Provider: Dr. Deepak Azul HPI narrative: 39-year-old male history of diabetes mellitus type 2 with DKA, anxiety, depression, PTSD who presents emergency department for evaluation of nausea, vomiting, fever, chills, feeling unwell. The patient states that night, 07/03/2025 (5 days prior to evaluation) he went out to dinner. Went he got home he gave himself an insulin bolus through head insulin pump but the next morning he noted that the bolus was timed out a did not received a bolus. Patient states that on Monday, the next day he had multiple episodes of vomiting and felt as if he was in diabetic ketoacidosis. He was seen in the emergency department on 07/04/2025, and found to be in DKA, treated with 2 L of normal saline IV and Zofran 4 mg IV. Patient remained on his insulin pump while in the emergency department refused IV insulin drip therapy. Patient states that he felt better and his anion gap improved but his bicarb remained low. Patient did not want to stay in the hospital in his discharged home. He states that since leaving the hospital he has been taking famotidine but has continued to vomit multiple times a day. States this morning, he had persistent nausea and forced himself to vomit at least 12 times. He states he has had very little food or fluid to eat over the last 24-48 hours. He is concerned that he may be in diabetic ketoacidosis again therefore he return to the emergency department for evaluation. I did review the emergency department record from 07/04/2025. Patient's initial pH was 7.28 with a bicarb of 17 and anion gap of 22. After receiving IV fluids continuing with a his insulin pump, his anion gap closed and was 17 but he is bicarb only minimally improved 18. Related Data Home Medications ?Medication ?Instructions ?Recorded ?Confirmed insulin lispro 100 unit/mL 10 - 15 unit subcut TIDWMEA L 12/28/20 05/06/22 subcutaneous pen (Humalog KwikPen (U-100) Insulin) sertraline 100 mg tablet 2 tab PO DAILY 12/28/20 10/0 02/18 insulin glargine 100 unit/mL (3 45 unit subcut BEDTIME 05/06/22 05/06/22 mL) subcutaneous pen (Lantus Solostar U-100 Insulin) melatonin 5 mg tablet 5 mg PO BEDTIME PRN Sleep 05/06/22 Previous Rx's ?Medication ?Instructions ?Recorded ondansetron 4 mg disintegrating 4 mg PO Q6-8H PRN naus ea and 07/08/25 tablet vomiting #20 tabs promethazine 25 mg rectal 25 mg MI Q6H PRN nausea and 07/08/25 suppository (Promethegan) vomiting #12 ea Allergies Allergy/AdvReac Type Severity Reaction Status Date / Time Penicillins Allergy Hives Verified 07/08/25 09:38 Review of Systems 2 Review of Systems: Yes all other systems are reviewed and are negative [facility] Past Medical History [facility] Narrative: Social history: The patient denies tobacco use. He states he rarely drinks alcohol. The patient does smoke marijuana dabs at least 6 times a day. He states he has been doing this for a long period of time in his neither increased or decreased his usage. He denies other drug use. Medical History Depression Diabetes type I Social History Social History Household Members: Spouse Housing: House Do you presently have visiting nurse or other home services: No Patient Tobacco Use Status: Former Tobacco user Tobacco use type: Cigarette Years Smoked: 2 Smoked in Last 30 Days: No Second Hand Smoke Exposure: Yes (MINIMAL) Use of substances other than those prescribed or required for medical reasons: No Substance Use Type: Marijuana Advance Directives: No Advance Directives Information Provided: Yes service: No Current occupational status: employed Physical Exam ED Vital Signs: Vital Signs - 24 hr 07/08/25 09:33 07/08/25 10:52 07/08/25 12:43 Temperature 98.2 F 98.2 F Pulse Rate 83 80 84 Respiratory Rate 18 14 18 Blood Pressure 168/99 H 155/104 H 156/84 H Pulse Oximetry 98 98 98 Oxygen Delivery Method Room Air Room Air Nasal Cannula 07/08/25 13:40 07/08/25 15:10 07/08/25 15:19 Temperature 98.6 F 98.2 F 98.2 F Pulse Rate 84 101 H 101 H Respiratory Rate 12 18 18 Blood Pressure 156/84 H 153/90 H 153/90 H Pulse Oximetry 98 97 97 Oxygen Delivery Method Room Air Room Air Room Air BMI result Body Mass Index 28.9 Vital signs revealed an elevated blood pressure of 168/95 otherwise unremarkable Exam: General: Awake, alert in no distress, patient has a strong ketotic odor to his breath Head: Normocephalic, atraumatic EENT: PERRL, sclera and conjunctiva are normal, mouth with no erythema or exudates Neck: Supple, no adenopathy Lung: breath sounds symmetric, no wheezing, no rales and no rhonchi Chest: symmetric movement, nontender Heart: regular rate and rhythm, normal S1, S2 no murmurs or rubs Abdomen: soft, non-tender, nondistended, normal bowel sounds Back: no vertebral tenderness, no CVAT Extremities: no deformities, moves all extremities symmetrically, no edema Neuro: Awake, alert, oriented, normal speech, cranial nerves 2-12 intact, moves all extremities symmetrically Psych: Pleasant, cooperative Course Course Course Narrative: 39-year-old male with past medical of insulin-dependent diabetes who is on the closed loop system with the pump he was diagnosed with DKA on Monday and declined admission. He he comes in reporting his blood sugar still elevated to 100s but last 24 hours he has been in the 200s to 300s, he has not checked his ketones since Monday, he has not been able to eat much since Monday he has been taking famotidine which is very helpful. He is still having nausea and vomiting. He denies any chest pain, fevers, source of infection, he states he is under significant stress which has been a precipitating factor for DKA in the past. His device and pump are both active and in use at this time. this is a RAPID medical screening exam the rest of the history and physical exam is to be done by the main provider. 9:41 AM 07/08/2025 (SHARON RICHMOND): Medications Administered Discontinued Medications Generic Name Dose Route Start Last Admin Trade Name Freq PRN Reason Stop Dose Admin Lactated Ringer's 1,000 mls @ 999 mls/hr 07/08/25 09:37 07/08/25 12:07 Lr IV 07/08/25 10:37 Infused .Q1H1M ONE Infusion Lactated Ringer's 1,000 mls @ 999 mls/hr 07/08/25 09:38 07/08/25 12:07 Lr IV 07/08/25 10:38 Infused .Q1H1M ONE Infusion Ondansetron HCl 4 mg 07/08/25 11:48 07/08/25 12:40 Ondansetron Hcl 4 Mg/2 Ml Vial IVPUSH 07/08/25 11:49 4 mg ONCE ONE Administration Medical Decision Making Medical Decision Making MDM Narrative: 39-year-old male history of diabetes mellitus type 2 with DKA, anxiety, depression, PTSD who presents emergency department for evaluation of nausea, vomiting, fever, chills, feeling unwell with a concerned that he may be in DKA. Patient was seen in the ED on 07/04/2025 for DKA with a pH of 7.28, bicarb 17 and anion gap 22. He was treated with Zofran and 2 L of normal saline and discharged home. Patient states for last several days he has continued to have persistent nausea and vomiting and that has only been able to eat and drink small amounts of food and fluid. Patient states he forced himself to vomit at least 12 times prior to coming to the emergency department. The patient does smoke concentrated marijuana (dabs) 6 times a day. He has never had cyclic vomiting syndrome. Vital signs revealed an elevated blood pressure of 168/99 otherwise unremarkable. Physical examination revealed no abdominal tenderness. Differential diagnosis: ?Includes but is not limited to diabetic ketoacidosis, starvation ketoacidosis, viral syndrome, COVID-19, influenza, RSV, cyclic vomiting syndrome, anemia, electrolyte abnormalities Course: 12:56 Patient was treated with lactated Ringer's IV x2 L and Zofran 4 mg IV. My interpretation patient's laboratory evaluation is as follows: CBC was normal. CMP revealed normal bicarb of 24, normal anion gap of 18. Glucose elevated 289. venous blood gas revealed an elevated pH is 7.43, normal pCO2 of 36 and normal bicarb of 24- given the elevated pH, the patient does not have DKA. Beta hydroxybutyrate was elevated at 3.73 - elevated ketones secondary to starvation ketosis and multiple episodes of vomiting. Urinalysis was concentrated, positive for protein, glucose and blood. Microscopic revealed 0-2 RBCs, 0-5 WBCs, no bacteria. drug screen urine was positive for THC only - patient smokes concentrated THC dabs multiple times a day. COVID-19, RSV, influenza were negative. 15:02 The patient is feeling significantly better. He states that has nausea has resolved. He has had no vomiting since he has been here in the emergency department. Patient has been able to drink fluid and eat crackers without vomiting. He also ate some food off his food tray. Patient has been following in his glucose with his glucose monitor and increased his basal rate to 5 Unit. The patient's glucose at this time is 300. I did discuss diabetic ketoacidosis versus starvation ketosis with the patient. I also discuss the possibility of cyclic vomiting syndrome as the cause of his nausea and this could be related to his daily THC use. Patient verbalized understanding of these discussions and feels better after the above treatment and does want to be discharged home. He was able to eat crackers, drink diet injury out at an as well as eat some food off his food tray without any vomiting. Patient will be discharged home with prescriptions for Zofran 4 mg ODT every 6 hours as needed and Phenergan suppositories 25 mg every 6 hours as needed. He was given printed and verbal instructions and discharged home Differential Diagnosis Differential Diagnoses: The differential diagnosis associated with the presentation includes (See above) Admission/Observation Consideration of admission/observation: Escalation of care including admission/observation considered (Yes) Lab Data MDM Lab Attestation statement: I reviewed the patient's lab results. 07/08/25 09:58 07/08/25 09:58 Labs: Lab Results 07/08/25 07/08/25 07/08/25 Range/Units 09:58 10:06 10:49 WBC 10.5 (4.8-10.8) X10*3/uL RBC 4.91 (4.60-5.80) X10*6/uL Hgb 15.3 (14.0-18.0) g/dl Hct 41.8 L (42.0-52.0) % MCV 85.1 (80.0-98.0) fL MCH 31.2 (27.0-33.0) pg MCHC 36.6 H (31.0-36.0) g/dl RDW 11.2 (11.0-16.0) % Plt Count 316 (160-400) X10*3/uL MPV 8.7 L (9.4-12.4) fL Immature Gran % (Auto) 0.3 (0.0-0.4) % Neut % (Auto) 84.9 H (45-73) % Lymph % (Auto) 10.0 L (20-40) % [place] % (Auto) 4.1 (2-11) % Eos % (Auto) 0.1 (0-4) % Baso % (Auto) 0.6 (0-2) % Lymph # (Auto) 1.1 L (1.2-4.9) X10*3/uL [place] # (Auto) 0.4 (0.1-1.2) X10*3/uL Eos # (Auto) 0.0 (0.0-0.4) X10*3/uL Baso # (Auto) 0.1 (0.0-0.2) X10*3/uL Abs Immat Gran (auto) 0.03 (0.00-0.03) X10*3/uL Absolute Neuts (auto) 8.9 H (2.0-8.3) x10*3/uL Absolute Nucleated RBC 0.000 (0.0-0.012) X10*3/uL Nucleated RBC % (auto) 0.0 (0.0-0.2) /100WBC VBG pH 7.43 (7.32-7.43) VBG pCO2 36 mmHg VBG pO2 74 mmHg VBG HCO3 24 (22-26) mmol/L VBG O2 Saturation 93.0 % VBG Base Excess 0.5 mmol/L Sodium 134 L (135-145) mmol/L Potassium 3.4 D (3.3-5.1) mmol/L Chloride 95 L (96-108) mmol/L Carbon Dioxide 24 (22-29) mmol/L Anion Gap 18 (12-20) BUN 14 (9-16) mg/dL Creatinine 0.88 (0.5-1.4) mg/dL Estim Creat Clear Calc 100.6 Estimated GFR > 60 POC Glucose 277 H (60-115) mg/dL Random Glucose 289 H (60-115) mg/dL Lactic Acid 1.3 (0.5-2.0) mmol/L Calcium 9.2 D (8.4-10.2) mg/dL Magnesium 1.8 (1.6-2.6) mg/dL Total Bilirubin 0.8 (0.0-1.0) mg/dL Direct Bilirubin 0.2 (0.0-0.5) mg/dL AST 24 (5-37) U/L ALT 14 (0-40) U/L Alkaline Phosphatase 94 (39-117) U/L Total Protein 7.6 (6.5-8.0) g/dL Albumin 4.8 (3.5-5.0) g/dL Lipase 17 (8-78) U/L Beta-Hydroxybutyrate 3.73 H (0.02-0.27) mmol/L Urine Color Urine Appearance Urine pH (5.0-9.0) Ur Specific [place] (1.005-1.025) Urine Protein (Neg-Trace) mg/dL Urine Glucose (UA) (Negative) mg/dL Urine Ketones (Negative) mg/dL Urine Blood (Negative) Urine Nitrite (Negative) Ur Leukocyte Esterase (Negative) Urine RBC (0-2) /HPF Urine WBC (0-5) /HPF Ur Squamous Epith Cells (0-2) /HPF Urine Bacteria (None Seen) Hyaline Casts (0-2) /LPF Influenza Type A (PCR) (Negative) Influenza Type B (PCR) (Negative) RSV RNA Qual (PCR) (Negative) SARS-CoV-2 RNA (RT-PCR) (Negative) 07/08/25 07/08/25 Range/Units 10:55 13:39 WBC (4.8-10.8) X10*3/uL RBC (4.60-5.80) X10*6/uL Hgb (14.0-18.0) g/dl Hct (42.0-52.0) % MCV (80.0-98.0) fL MCH (27.0-33.0) pg MCHC (31.0-36.0) g/dl RDW (11.0-16.0) % Plt Count (160-400) X10*3/uL MPV (9.4-12.4) fL Immature Gran % (Auto) (0.0-0.4) % Neut % (Auto) (45-73) % Lymph % (Auto) (20-40) % [place] % (Auto) (2-11) % Eos % (Auto) (0-4) % Baso % (Auto) (0-2) % Lymph # (Auto) (1.2-4.9) X10*3/uL [place] # (Auto) (0.1-1.2) X10*3/uL Eos # (Auto) (0.0-0.4) X10*3/uL Baso # (Auto) (0.0-0.2) X10*3/uL Abs Immat Gran (auto) (0.00-0.03) X10*3/uL Absolute Neuts (auto) (2.0-8.3) x10*3/uL Absolute Nucleated RBC (0.0-0.012) X10*3/uL Nucleated RBC % (auto) (0.0-0.2) /100WBC VBG pH (7.32-7.43) VBG pCO2 mmHg VBG pO2 mmHg VBG HCO3 (22-26) mmol/L VBG O2 Saturation % VBG Base Excess mmol/L Sodium (135-145) mmol/L Potassium (3.3-5.1) mmol/L Chloride (96-108) mmol/L Carbon Dioxide (22-29) mmol/L Anion Gap (12-20) BUN (9-16) mg/dL Creatinine (0.5-1.4) mg/dL Estim Creat Clear Calc Estimated GFR POC Glucose (60-115) mg/dL Random Glucose (60-115) mg/dL Lactic Acid (0.5-2.0) mmol/L Calcium (8.4-10.2) mg/dL Magnesium (1.6-2.6) mg/dL Total Bilirubin (0.0-1.0) mg/dL Direct Bilirubin (0.0-0.5) mg/dL AST (5-37) U/L ALT (0-40) U/L Alkaline Phosphatase (39-117) U/L Total Protein (6.5-8.0) g/dL Albumin (3.5-5.0) g/dL Lipase (8-78) U/L Beta-Hydroxybutyrate (0.02-0.27) mmol/L Urine Color Yellow Urine Appearance Clear Urine pH 6.0 (5.0-9.0) Ur Specific [place] >= 1.030 H (1.005-1.025) Urine Protein 30 (1+) H (Neg-Trace) mg/dL Urine Glucose (UA) >=1000 H (Negative) mg/dL Urine Ketones >=160 (Negative) mg/dL Urine Blood Small (1+) H (Negative) Urine Nitrite Negative (Negative) Ur Leukocyte Esterase Negative (Negative) Urine RBC 0-2 (0-2) /HPF Urine WBC 0-5 (0-5) /HPF Ur Squamous Epith Cells 0-2 (0-2) /HPF Urine Bacteria None Seen (None Seen) Hyaline Casts 0-2 (0-2) /LPF Influenza Type A (PCR) NEGATIVE (Negative) Influenza Type B (PCR) NEGATIVE (Negative) RSV RNA Qual (PCR) NEGATIVE (Negative) SARS-CoV-2 RNA (RT-PCR) NEGATIVE (Negative) External Record Review External record reviewed: Outpatient record and Other (Previous ED record) Prescription Management I considered prescription management with: Other (I prescribed Zosyn 4 mg ODT and Phenergan 25 mg suppository) Chronic Conditions Patient?s care impacted by: Diabetes Discharge Plan Discharge Clinical Impression: Ketosis, Nausea and vomiting, Volume depletion Patient Disposition: Home, Self-Care Additional Instructions: Your blood work normal serum bicarb and normal anion gap Your venous blood gas revealed an elevated pH of 7.43-acidosis is when your pH is less than 7.4 which is reassuring suggesting that you are not in diabetic ketoacidosis. You did have ketones in your blood (elevated beta hydroxybutyrate). This elevation is due to starvation ketosis since you have not been able to eat for several days. You were treated here in the emergency room with a 2 L of lactated Ringer's IV and Zosyn (ondansetron) 4 mg IV It is important that you continue to eat food to prevent a starvation ketosis. For the next 24 hours, stay on a GIANFRANCO diet (bananas, rice, applesauce, tea and toast). It is also important that you drink fluid with electrolytes in it to stay hydrated. Take Zofran ODT 4 mg pills, 1 pill dissolved in your mouth every 8 hours as needed for nausea and vomiting. Insert Phenergan instruction Follow-up with your doctor in 2 days. Please return to the emergency department if your symptoms get worse or if you develop any symptoms that are concerning to you. Prescriptions: New promethazine [Promethegan] 25 mg suppository 25 mg MI Q6H PRN (Reason: nausea and vomiting) Qty: 12 0RF ondansetron 4 mg tablet,disintegrating 4 mg PO Q6-8H PRN (Reason: nausea and vomiting) Qty: 20 0RF No Action sertraline 100 mg tablet 2 tab PO DAILY insulin lispro [Humalog KwikPen Insulin] 100 unit/mL insulin pen 10 - 15 unit subcut TIDWMEAL Patient Comments: sliding scale insulin glargine [Lantus Solostar U-100 Insulin] 100 unit/mL (3 mL) insulin pen 45 unit subcut BEDTIME melatonin 5 mg Tablet 5 mg PO BEDTIME PRN (Reason: Sleep) Interventions: ED Discharge Assessment Last Done: 07/08/25 15:19 Discharge Date/Time: 07/08/25 15:35 Print Language: Belgian
--- NOTE | 2025-07-08 09:38 | ECG_ITS ---
Test Reason : check qtc Blood Pressure : */* mmHG Vent. Rate : 69 BPM Atrial Rate : 69 BPM P-R Int : 120 ms QRS Dur : 74 ms QT Int : 402 ms P-R-T Axes : 26 46 -10 degrees QTcB Int : 430 ms Normal sinus rhythm T wave abnormality, consider inferior ischemia Abnormal ECG When compared with ECG of 06-May-2022 20:15, Vent. rate has decreased by 58 bpm Inverted T waves have replaced nonspecific T wave abnormality in Inferior leads Referred By: Huma Damon Electronically Signed By: MARY CASTRO MD
[2025-07-08 10:09] LABS: Venous Blood Gas Refer to POC result
[2025-07-08 10:09] LABS: MANUAL DIFF FLAG NO
[2025-07-08 10:11] LABS: VBG HCO3 24 mmol/L (22-26); VBG O2 % Saturation 93.0 %
[2025-07-08 10:11] LABS: Hematocrit 41.8 % (42.0-52.0); Hemoglobin 15.3 g/dl (14.0-18.0); Imm Gran Abs Auto 0.03 X10*3/uL (0.00-0.03); Imm Gran Pct Auto 0.3 % (0.0-0.4); Lymphocytes Absolute Auto 1.1 X10*3/uL (1.2-4.9); Mean Corpuscular HGB Conc 36.6 g/dl (31.0-36.0); Mean Corpuscular Hemoglobin 31.2 pg (27.0-33.0); Mean Corpuscular Volume 85.1 fL (80.0-98.0); NRBC Abs Auto 0.000 X10*3/uL (0.0-0.012); NRBC Pct Auto 0.0 /100WBC (0.0-0.2); Platelet Count 316 X10*3/uL (160-400); Red Blood Count 4.91 X10*6/uL (4.60-5.80); White Blood Count 10.5 X10*3/uL (4.8-10.8)
[2025-07-08 10:30] LABS: Anion Gap 18 (12-20); Blood Urea Nitrogen 14 mg/dL (9-16); Carbon Dioxide 24 mmol/L (22-29); Chloride 95 mmol/L (96-108); Potassium 3.4 mmol/L (3.3-5.1); Sodium 134 mmol/L (135-145)
[2025-07-08 10:31] LABS: Alanine Aminotransferase 14 U/L (0-40); Albumin Level 4.8 g/dL (3.5-5.0); Alkaline Phosphatase 94 U/L (39-117); Aspartate Amino Transferase 24 U/L (5-37); Calcium 9.2 mg/dL (8.4-10.2); Creatinine Clr Calc Pharmacy 100.6; Estimated Glomerular Filt Rate > 60; Lipase 17 U/L (8-78); Magnesium 1.8 mg/dL (1.6-2.6); Total Protein 7.6 g/dL (6.5-8.0)
[2025-07-08 10:52] VITALS: BP 155/104; PULSE 80; RESP 14; TEMP 36.8; O2SAT 98
[2025-07-08] MEDS: Lactated Ringers 1,000 ML 999 ML IV ×2 (10:56)
[2025-07-08 11:04] LABS: Appearance Urine Clear; Glucose Urine UA >=1000 mg/dL (Negative); PH 6.0 (5.0-9.0); Specific Gravity - Urine >= 1.030 (1.005-1.025); UMIC TRIGGER UACC YES
[2025-07-08 11:05] LABS: Glucose, Whole Blood 277 mg/dL (60-115)
[2025-07-08 12:43] VITALS: BP 156/84; PULSE 84; RESP 18; O2SAT 98
[2025-07-08 13:40] VITALS: BP 156/84; PULSE 84; RESP 12; TEMP 37; O2SAT 98
[2025-07-08 14:24] LABS: Resp Syncy Virus RNA Qual PCR NEGATIVE (Negative); SARS COV2 PCR INHOUSE NEGATIVE (Negative)
[2025-07-08 15:10] VITALS: BP 153/90; PULSE 101; RESP 18; TEMP 36.8; O2SAT 97
[2025-07-08 15:19] VITALS: BP 153/90; PULSE 101; RESP 18; TEMP 36.8; O2SAT 97
== END 2025-07-08 15:35 | disposition home or self-care (01) ==
PROVIDERS: Emergency Medicine; Emergency Provider Emergency Medicine Emergency Medical Services; PCP Pediatrics
DX: E88.89 Other specified metabolic disorders (principal); T73.0XXA Starvation, initial encounter; X58.XXXA Exposure to other specified factors, initial encounter; R11.2 Nausea with vomiting, unspecified; E86.9 Volume depletion, unspecified; E11.9 Type 2 diabetes mellitus without complications; Z79.899 Other long term (current) drug therapy; Z79.4 Long term (current) use of insulin
CPT/HCPCS: 36415; 80048; 80076; 81001; 81003; 82010; 82803; 82947; 83605; 83690; 83735; 85025; 87637; 93005; 96361; 96374; 99284; 99285; J2405; J7120

== ENCOUNTER → 2025-07-08 09:38 | Outpatient (BNV) | payer OTHER, SELFPAY | PROVIDERS: Emergency Provider Emergency Medicine Emergency Medical Services; PCP Pediatrics; Visit Provider Internal Medicine Cardiovascular Disease | DX: R94.31 Abnormal electrocardiogram [ECG] [EKG] (principal); Z13.6 Encounter for screening for cardiovascular disorders | CPT/HCPCS: 93010 ==